=== PATIENT | male | born 1955 | race Caucasian/White ===

== ENCOUNTER → 2016-11-17 | Outpatient (CLI) | payer BC ==
[2016-11-17 14:07] LABS: BASO # 0.1 K/mm3 (0.0-0.2); EOS # 0.2 K/mm3 (0.0-0.50); EOS % 1.9 % (0.0-3.0); LARGE UNSTAINED CELL # 0.2 K/mm3 (0.0-0.4); LYMPH # 2.6 K/mm3 (1.5-4.5); MEAN CORPUSCULAR HEMOGLOBIN 29.5 pg (27.0-33.0); MEAN CORPUSCULAR HGB CONC 32.9 g/dl (32.0-36.5); MEAN CORPUSCULAR VOLUME 89.6 fl (80.0-96.0); MONO # 0.6 K/mm3 (0.0-0.8); MONO % 6.1 % (0.0-5.0); NEUTROPHILS # 6.8 K/mm3 (1.8-7.7); PLATELET COUNT, AUTOMATED 222 k/mm3 (150-450); RED CELL DISTRIBUTION WIDTH 13.9 % (11.5-14.5); WHITE BLOOD COUNT 10.3 K/mm3 (4.0-10.0)
[2016-11-17 14:18] LABS: ALBUMIN 3.9 GM/DL (3.2-5.2); ALBUMIN/GLOBULIN RATIO 0.93 (1.00-1.93); BILIRUBIN,TOTAL 0.6 MG/DL (0.2-1.0); CALCIUM LEVEL 8.9 MG/DL (8.8-10.2); CREATININE FOR GFR 1.93 MG/DL (0.70-1.30); GLOMERULAR FILTRATION RATE 37.7 (>49); POTASSIUM SERUM 5.1 MEQ/L (3.5-5.1); TOTAL PROTEIN 8.1 GM/DL (6.4-8.2)
[2016-11-17 14:36] LABS: MAGNESIUM LEVEL 0.9 MG/DL (1.8-2.4)
== END ==
LOC: M SMT 09:03
PROVIDERS: ATTEND Physician Assistant
DX: I48.2 Chronic atrial fibrillation (principal); E78.2 Mixed hyperlipidemia; I10 Essential (primary) hypertension

== ENCOUNTER → 2016-12-09 | Outpatient (CLI) | payer BC ==
[2016-12-09 13:08] LABS: ALBUMIN 3.7 GM/DL (3.2-5.2); CALCIUM LEVEL 8.6 MG/DL (8.8-10.2); CREATININE FOR GFR 1.76 MG/DL (0.70-1.30); MAGNESIUM LEVEL 1.2 MG/DL (1.8-2.4); PHOSPHORUS LEVEL 3.9 MG/DL (2.5-4.9)
[2016-12-09 13:10] LABS: POTASSIUM SERUM 5.2 MEQ/L (3.5-5.1)
== END ==
LOC: M SMT 09:11
PROVIDERS: ATTEND Internal Medicine Cardiovascular Disease
DX: E83.42 Hypomagnesemia (principal); I10 Essential (primary) hypertension

== ENCOUNTER → 2017-01-21 | Outpatient (REF) | payer BC ==
[2017-01-21 20:20] LABS: PERCENT SATURATION 28.4 % (19.7-37.4)
== END ==
LOC: M LAB REF 18:47
PROVIDERS: ATTEND Internal Medicine Nephrology
DX: D50.9 Iron deficiency anemia, unspecified (principal)

== ENCOUNTER → 2017-03-11 | Outpatient (CLI) | payer BC ==
--- NOTE | 2017-03-12 03:02 | REP ---
Clinical: Chronic medical renal disease. Technique: Real time stratton scale and color evaluation using curved array transducer. Findings: The bilateral kidneys are normal in contour, size, and reniform shape without hydronephrosis, nephrolithiasis, or obvious renal mass lesion. Right kidney measures 11.9 x 5.3 x 4.6 cm with normal parenchymal echogenicity and 3.4 cm simple mid pole cyst. Left kidney measures 10.9 x 4.6 x 5.7 cm with subtle increased parenchymal echogenicity. Mild bilateral renal vascular calcifications are suggested. The bladder is grossly unremarkable and bilateral ureteral jets are identified. Prevoid bladder measures 73 ml. Postvoid bladder measures 12 ml. Prostate gland is enlarged measuring 4.9 x 4.9 x 5.1 cm (64 ml). Impression: 1. Evidence for chronic medical renal disease as well as 3.4 cm simple appearing right renal cyst. 2. Bladder is incompletely distended and incompletely evaluated although bilateral ureteral jets are identified. 3. Mildly enlarged prostate gland. Signed by Estevan Ritchie MD 03/12/2017 02:55 A
== END ==
LOC: M SMT 10:09
PROVIDERS: ATTEND Internal Medicine Nephrology
DX: N18.3 Chronic kidney disease, stage 3 (moderate) (principal); E11.9 Type 2 diabetes mellitus without complications; I12.9 Hypertensive chronic kidney disease with stage 1 through stage 4 chronic kidney disease, or unspecified chronic kidney disease

== ENCOUNTER → 2017-04-26 | Outpatient (CLI) | payer BC ==
[~2017-04-26] MED LIST: AMLO10TA2 PO; ATOR1TAB21 PO; BENA10TA6 PO; CHLO125TA PO; GLIP1TAB49 PO; MAGN64TASA PO; METF500T4 PO; METO-398 PO; POLY150C4 PO; RANI300C PO; SERT-155 PO; SITA50TAB PO; XARE20TA PO
[2017-04-26 13:14] LABS: BASO # 0.1 K/mm3 (0.0-0.2); BASO % 0.9 % (0.0-1.0); EOS # 0.2 K/mm3 (0.0-0.50); EOS % 2.2 % (0.0-3.0); LARGE UNSTAINED CELL # 0.1 K/mm3 (0.0-0.4); LARGE UNSTAINED CELL % 1.3 % (0.0-4.0); LYMPH % 21.7 % (24.0-44.0); MEAN CORPUSCULAR HEMOGLOBIN 29.8 pg (27.0-33.0); MEAN CORPUSCULAR HGB CONC 33.3 g/dl (32.0-36.5); MEAN CORPUSCULAR VOLUME 89.4 fl (80.0-96.0); MONO # 0.5 K/mm3 (0.0-0.8); MONO % 5.6 % (0.0-5.0); NEUTROPHILS # 5.9 K/mm3 (1.8-7.7); NEUTROPHILS % 68.3 % (36.0-66.0); PLATELET COUNT, AUTOMATED 182 k/mm3 (150-450); RED CELL DISTRIBUTION WIDTH 14.3 % (11.5-14.5); WHITE BLOOD COUNT 8.6 K/mm3 (4.0-10.0)
[2017-04-26 13:43] LABS: ALBUMIN 3.6 GM/DL (3.2-5.2); ALBUMIN/GLOBULIN RATIO 0.97 (1.00-1.93); BILIRUBIN,TOTAL 0.4 MG/DL (0.2-1.0); CALCIUM LEVEL 8.5 MG/DL (8.8-10.2); CREATININE FOR GFR 1.71 MG/DL (0.70-1.30); GLOMERULAR FILTRATION RATE 43.3 (>49); MAGNESIUM LEVEL 1.5 MG/DL (1.8-2.4); POTASSIUM SERUM 4.5 MEQ/L (3.5-5.1); TOTAL PROTEIN 7.3 GM/DL (6.4-8.2)
== END ==
LOC: M SMT 10:15
PROVIDERS: ATTEND Family Medicine
DX: E11.22 Type 2 diabetes mellitus with diabetic chronic kidney disease (principal); I12.9 Hypertensive chronic kidney disease with stage 1 through stage 4 chronic kidney disease, or unspecified chronic kidney disease; D50.9 Iron deficiency anemia, unspecified; N18.3 Chronic kidney disease, stage 3 (moderate); E55.9 Vitamin D deficiency, unspecified

== ENCOUNTER → 2017-06-03 | Outpatient (REF) | payer BC ==
[2017-06-03 19:09] LABS: HYALINE CAST, URINE NONE SEEN /lpf (0-1); RBC, URINE 0-1 /hpf (0-3); SQUAMOUS EPITHELIAL CELL URINE SMALL AMOUNT /hpf (SMALL AMT); TRANSITIONAL EPI CELLS, URINE SMALL AMOUNT /hpf
[2017-06-03 19:10] LABS: BACTERIA, URINE SMALL AMOUNT; MICROSCOPIC EXAM PERFORMED
== END ==
LOC: M LAB REF 17:01
PROVIDERS: ATTEND Internal Medicine Nephrology
DX: N18.3 Chronic kidney disease, stage 3 (moderate) (principal)

== ENCOUNTER → 2017-06-15 | Outpatient (CLI) | payer BC ==
[2017-06-15 11:10] LABS: MEAN CORPUSCULAR HEMOGLOBIN 30.3 pg (27.0-33.0); MEAN CORPUSCULAR HGB CONC 34.3 g/dl (32.0-36.5); MEAN CORPUSCULAR VOLUME 88.5 fl (80.0-96.0); WHITE BLOOD COUNT 7.6 K/mm3 (4.0-10.0)
[2017-06-15 11:16] LABS: CREATININE FOR GFR 1.77 MG/DL (0.70-1.30); GLOMERULAR FILTRATION RATE 41.6 (>49); POTASSIUM SERUM 4.5 MEQ/L (3.5-5.1)
[2017-06-15 11:17] LABS: ALBUMIN 3.6 GM/DL (3.2-5.2); ALBUMIN/GLOBULIN RATIO 0.88 (1.00-1.93); BILIRUBIN,TOTAL 0.4 MG/DL (0.2-1.0); CALCIUM LEVEL 8.3 MG/DL (8.8-10.2); MAGNESIUM LEVEL 1.2 MG/DL (1.8-2.4); TOTAL PROTEIN 7.7 GM/DL (6.4-8.2)
== END ==
LOC: M SMT 09:22
PROVIDERS: ATTEND Physician Assistant
DX: I48.2 Chronic atrial fibrillation (principal); I11.9 Hypertensive heart disease without heart failure; E78.2 Mixed hyperlipidemia

== ENCOUNTER 2017-08-03 09:10 | Day surgery (SDC) | payer BC ==
[~2017-08-03] VITALS: Ht 167.6 cm; Wt 107.0 kg
[~2017-08-03 09:10] MED LIST changes: -XARE20TA PO
[2017-08-03] MEDS ORDERED: LR 1,000 ML IV SCH (09:30)
[2017-08-03] MEDS ORDERED: XARE20TA PO (09:36)
[2017-08-03] MEDS ORDERED: PROPOFOL 200 MG/20 ML VIAL As Ordered ONE (09:41)
[2017-08-03] MEDS ORDERED: LIDOCAINE 2% INJ 100 MG/5 ML SDV (FOR ANES.) As Ordered ONE (09:41)
--- NOTE | 2017-08-03 10:17 | ROOR ---
Patient Name: Matthias Vargas Procedure Date: 08/03/2017 9:55 AM Date of : 1955 Age: 62 Room: [facility] Gender: Male Note Status: Finalized Procedure: Colonoscopy Indications: Screening for colorectal malignant neoplasm, Last colonoscopy 10 or more years ago Providers: Jeff Blue MD Referring MD: Araceli SORENSEN DO Requesting Provider: Medicines: Monitored Anesthesia Care Complications: No immediate complications. Procedure: Pre-Anesthesia Assessment: - Prior to the procedure, a History and Physical was performed, and patient medications and allergies were reviewed. The patient is competent. The risks and benefits of the procedure and the sedation options and risks were discussed with the patient. All questions were answered and informed consent was obtained. Patient identification and proposed procedure were verified by the physician, the nurse and the anesthesiologist in the procedure room. Mental Status Examination: alert and oriented. Airway Examination: normal oropharyngeal airway and neck mobility. CV Examination: irregularly irregular rate and rhythm. Prophylactic Antibiotics: The patient does not require prophylactic antibiotics. Prior Anticoagulants: The patient has taken no previous anticoagulant or antiplatelet agents. ASA Grade Assessment: III - A patient with severe systemic disease. After reviewing the risks and benefits, the patient was deemed in satisfactory condition to undergo the procedure. The anesthesia plan was to use monitored anesthesia care (MAC). Immediately prior to administration of medications, the patient was re-assessed for adequacy to receive sedatives. The heart rate, respiratory rate, oxygen saturations, blood pressure, adequacy of pulmonary ventilation, and response to care were monitored throughout the procedure. The physical status of the patient was re-assessed after the procedure. The was introduced through the anus and advanced to the cecum, identified by appendiceal orifice and ileocecal valve. The colonoscopy was performed without difficulty. The patient tolerated the procedure well. The quality of the bowel preparation was excellent. Findings: The perianal and digital rectal examinations were normal. Multiple small-mouthed diverticula were found in the sigmoid colon. Impression: - Diverticulosis in the sigmoid colon. - No specimens collected. Recommendation: - Discharge patient to home. - Resume previous diet. - Continue present medications. - Repeat colonoscopy in 10 years for screening purposes. Jeff Blue MD 08/03/2017 10:16:54 AM Number of Addenda: 0 Note Initiated On: 08/03/2017 9:55 AM Estimated Blood Loss: Estimated blood loss: none.
[2017-08-03] MEDS ORDERED: ALBUTEROL SULFATE 2.5 MG/0.5 ML INH NEB SOLN INH ONE (10:30)
[2017-08-03 10:55] VITALS: BP 167/97
== END 2017-08-03 11:05 | disposition home or self-care (01) ==
LOC: M OPP 09:10 → EDSTATUS 10:30 → M OPP 11:05
PROVIDERS: ATTEND Surgery
DX: Z12.11 Encounter for screening for malignant neoplasm of colon (principal); K57.30 Diverticulosis of large intestine without perforation or abscess without bleeding; K21.9 Gastro-esophageal reflux disease without esophagitis; I48.91 Unspecified atrial fibrillation; F41.9 Anxiety disorder, unspecified; E78.00 Pure hypercholesterolemia, unspecified; E66.9 Obesity, unspecified; Z79.52 Long term (current) use of systemic steroids; Z88.0 Allergy status to penicillin; Z79.84 Long term (current) use of oral hypoglycemic drugs; Z79.899 Other long term (current) drug therapy

== ENCOUNTER → 2017-08-06 | Outpatient (CLI) | payer BC ==
[~2017-08-06] MED LIST changes: +XARE20TA PO
[2017-08-06 14:24] LABS: BASO # 0.1 10^3/uL (0.0-0.2); BASO % 1.2 % (0.0-1.0); EOS # 0.3 10^3/uL (0.0-0.50); EOS % 3.6 % (0.0-3.0); IMMATURE GRANULOCYTE % 0.6 % (0-0); LYMPH % 23.3 % (24.0-44.0); MEAN CORPUSCULAR HEMOGLOBIN 29.3 pg (27.0-33.0); MEAN CORPUSCULAR HGB CONC 33.1 g/dl (32.0-36.5); MEAN CORPUSCULAR VOLUME 88.5 fl (80.0-96.0); MONO # 0.7 10^3/uL (0.0-0.8); MONO % 7.5 % (0.0-5.0); NEUTROPHILS # 5.5 10^3/uL (1.8-7.7); NEUTROPHILS % 63.8 % (36.0-66.0); PLATELET COUNT, AUTOMATED 197 10^3/uL (150-450); RED CELL DISTRIBUTION WIDTH 13.6 % (11.5-14.5); WHITE BLOOD COUNT 8.7 10^3/uL (4.0-10.0)
[2017-08-06 14:29] LABS: ALBUMIN 3.9 GM/DL (3.2-5.2); ALBUMIN/GLOBULIN RATIO 0.95 (1.00-1.93); BILIRUBIN,TOTAL 0.5 MG/DL (0.2-1.0); CALCIUM LEVEL 9.3 MG/DL (8.8-10.2); CREATININE FOR GFR 1.75 MG/DL (0.70-1.30); GLOMERULAR FILTRATION RATE 42.1 (>49); MAGNESIUM LEVEL 1.5 MG/DL (1.8-2.4); POTASSIUM SERUM 4.9 MEQ/L (3.5-5.1)
== END ==
LOC: M SMT 09:08
PROVIDERS: ATTEND Family Medicine
DX: E11.22 Type 2 diabetes mellitus with diabetic chronic kidney disease (principal); D50.9 Iron deficiency anemia, unspecified; E83.42 Hypomagnesemia

== ENCOUNTER → 2017-11-01 | Outpatient (CLI) | payer BC ==
[2017-11-01 13:37] LABS: ALBUMIN/GLOBULIN RATIO 0.91 (1.00-1.93); ALKALINE PHOSPHATASE 133 U/L (45-117); ALT/SGPT 36 U/L (12-78); ANION GAP 6 MEQ/L (8-16); AST/SGOT 26 U/L (7-37); BILIRUBIN,TOTAL 0.5 MG/DL (0.2-1.0); BLOOD UREA NITROGEN 36 MG/DL (7-18); CARBON DIOXIDE LEVEL 25 MEQ/L (21-32); CHLORIDE LEVEL 101 MEQ/L (98-107); CREATININE FOR GFR 1.97 MG/DL (0.70-1.30); GLOMERULAR FILTRATION RATE 36.7 (>49); GLUCOSE, FASTING 328 MG/DL (70-100); MAGNESIUM LEVEL 1.4 MG/DL (1.8-2.4); SODIUM LEVEL 132 MEQ/L (136-145); TOTAL PROTEIN 8.4 GM/DL (6.4-8.2)
[2017-11-01 13:38] LABS: BASO # 0.1 10^3/uL (0.0-0.2); BASO % 1.4 % (0.0-1.0); EOS # 0.2 10^3/uL (0.0-0.50); EOS % 1.7 % (0.0-3.0); HEMATOCRIT 40.3 % (42.0-52.0); HEMOGLOBIN 13.6 g/dl (14.0-18.0); IMMATURE GRANULOCYTE # 0.1 10^3/uL (0-0); IMMATURE GRANULOCYTE % 0.7 % (0-0); LYMPH # 2.2 10^3/uL (1.5-4.5); LYMPH % 22.1 % (24.0-44.0); MEAN CORPUSCULAR HEMOGLOBIN 28.8 pg (27.0-33.0); MEAN CORPUSCULAR HGB CONC 33.7 g/dl (32.0-36.5); MEAN CORPUSCULAR VOLUME 85.4 fl (80.0-96.0); MONO # 0.7 10^3/uL (0.0-0.8); MONO % 6.7 % (0.0-5.0); NEUTROPHILS # 6.7 10^3/uL (1.8-7.7); NEUTROPHILS % 67.4 % (36.0-66.0); PLATELET COUNT, AUTOMATED 193 10^3/uL (150-450); POTASSIUM SERUM 5.9 MEQ/L (3.5-5.1); RED BLOOD COUNT 4.72 10^6/uL (4.30-6.10); RED CELL DISTRIBUTION WIDTH 13.6 % (11.5-14.5); WHITE BLOOD COUNT 9.9 10^3/uL (4.0-10.0)
[2017-11-01 13:43] LABS: TOTAL 25(OH) VITAMIN D 26.8 NG/ML (30.0-100.0)
[2017-11-01 14:26] LABS: ESTIMATED AVERAGE GLUCOSE 260 MG/DL (60-110); HEMOGLOBIN A1c 10.7 %
== END ==
LOC: M SMT 09:48
DX: E11.22 Type 2 diabetes mellitus with diabetic chronic kidney disease (principal); E55.9 Vitamin D deficiency, unspecified
CPT/HCPCS: 83735

== ENCOUNTER → 2017-11-02 | Outpatient (CLI) | payer BC | LOC: M WUC 18:25 | DX: M79.605 Pain in left leg (principal); W10.9XXA Fall (on) (from) unspecified stairs and steps, initial encounter; Y92.89 Other specified places as the place of occurrence of the external cause | CPT/HCPCS: 73552 ==

== ENCOUNTER → 2017-11-16 | Outpatient (REF) | payer BC ==
[2017-11-16 18:45] LABS: FERRITIN 530 NG/ML (26-388); IRON (FE) 72 UG/DL (65-175); PERCENT SATURATION 36.7 % (19.7-50.0); TOTAL IRON BINDING CAPACITY 196 UG/DL (250-450)
[2017-11-16 19:40] LABS: FOLATE 6.5 NG/ML; VITAMIN B12 LEVEL 932 PG/ML
== END ==
LOC: M LAB REF 18:15
DX: D50.9 Iron deficiency anemia, unspecified (principal)
CPT/HCPCS: 82746

== ENCOUNTER → 2017-12-06 | Outpatient (CLI) | payer BC ==
[2017-12-06 13:22] LABS: BASO # 0.1 10^3/uL (0.0-0.2); BASO % 1.2 % (0.0-1.0); EOS # 0.2 10^3/uL (0.0-0.50); EOS % 2.1 % (0.0-3.0); HEMATOCRIT 36.8 % (42.0-52.0); IMMATURE GRANULOCYTE % 0.5 % (0-3.0); LYMPH # 1.9 10^3/uL (1.5-4.5); LYMPH % 24.8 % (24.0-44.0); MEAN CORPUSCULAR HEMOGLOBIN 28.4 pg (27.0-33.0); MEAN CORPUSCULAR HGB CONC 32.6 g/dl (32.0-36.5); MEAN CORPUSCULAR VOLUME 87.2 fl (80.0-96.0); MONO # 0.6 10^3/uL (0.0-0.8); MONO % 8.1 % (0.0-5.0); NEUTROPHILS # 4.9 10^3/uL (1.8-7.7); NEUTROPHILS % 63.3 % (36.0-66.0); PLATELET COUNT, AUTOMATED 163 10^3/uL (150-450); RED BLOOD COUNT 4.22 10^6/uL (4.30-6.10); RED CELL DISTRIBUTION WIDTH 14.2 % (11.5-14.5); WHITE BLOOD COUNT 7.7 10^3/uL (4.0-10.0)
[2017-12-06 13:25] LABS: ANION GAP 10 MEQ/L (8-16); BLOOD UREA NITROGEN 28 MG/DL (7-18); CALCIUM LEVEL 8.8 MG/DL (8.8-10.2); CARBON DIOXIDE LEVEL 23 MEQ/L (21-32); CHLORIDE LEVEL 105 MEQ/L (98-107); CREATININE FOR GFR 1.66 MG/DL (0.70-1.30); GLOMERULAR FILTRATION RATE 44.8 (>49); GLUCOSE, FASTING 175 MG/DL (70-100); SODIUM LEVEL 138 MEQ/L (136-145)
[2017-12-06 13:40] LABS: ESTIMATED AVERAGE GLUCOSE 237 MG/DL (60-110); HEMOGLOBIN A1c 9.9 %
== END ==
LOC: M SMT 09:11
DX: E11.22 Type 2 diabetes mellitus with diabetic chronic kidney disease (principal); N18.9 Chronic kidney disease, unspecified; S79.922D Unspecified injury of left thigh, subsequent encounter

== ENCOUNTER → 2018-03-07 | Outpatient (CLI) | payer BC ==
[2018-03-07 10:54] LABS: ALBUMIN 3.8 GM/DL (3.2-5.2); ALKALINE PHOSPHATASE 101 U/L (45-117); ALT/SGPT 32 U/L (12-78); ANION GAP 9 MEQ/L (8-16); AST/SGOT 25 U/L (7-37); BILIRUBIN,TOTAL 0.5 MG/DL (0.2-1.0); BLOOD UREA NITROGEN 26 MG/DL (7-18); CALCIUM LEVEL 8.7 MG/DL (8.8-10.2); CARBON DIOXIDE LEVEL 24 MEQ/L (21-32); CHLORIDE LEVEL 106 MEQ/L (98-107); CREATININE FOR GFR 1.57 MG/DL (0.70-1.30); GLOMERULAR FILTRATION RATE 47.6 (>49); GLUCOSE, FASTING 166 MG/DL (70-100); POTASSIUM SERUM 4.6 MEQ/L (3.5-5.1); SODIUM LEVEL 139 MEQ/L (136-145)
[2018-03-07 11:14] LABS: ESTIMATED AVERAGE GLUCOSE 189 MG/DL (60-110); HEMOGLOBIN A1c 8.2 %
== END ==
LOC: M LAB 09:50
DX: E11.22 Type 2 diabetes mellitus with diabetic chronic kidney disease (principal); N18.9 Chronic kidney disease, unspecified
CPT/HCPCS: 80053

== ENCOUNTER → 2018-07-27 | Outpatient (REF) | payer BC ==
[2018-07-27 13:59] LABS: MAGNESIUM LEVEL 1.2 MG/DL (1.8-2.4)
[2018-07-27 14:02] LABS: MAGNESIUM URINE RANDOM 2.2 MG/DL
== END ==
LOC: M LAB REF 13:19
DX: E83.42 Hypomagnesemia (principal)
CPT/HCPCS: 83735

== ENCOUNTER → 2018-09-07 | Outpatient (CLI) | payer BC ==
[2018-09-07 12:25] LABS: BASO # 0.1 10^3/uL (0.0-0.2); BASO % 1.1 % (0.0-1.0); EOS # 0.1 10^3/uL (0.0-0.50); EOS % 1.3 % (0.0-3.0); HEMATOCRIT 40.3 % (42.0-52.0); HEMOGLOBIN 13.5 g/dl (13.5-17.5); IMMATURE GRANULOCYTE % 0.9 % (0-3.0); LYMPH % 24.4 % (24.0-44.0); MEAN CORPUSCULAR HEMOGLOBIN 29.3 pg (27.0-33.0); MEAN CORPUSCULAR HGB CONC 33.5 g/dl (32.0-36.5); MEAN CORPUSCULAR VOLUME 87.6 fl (80.0-96.0); MONO # 0.5 10^3/uL (0.0-0.8); MONO % 6.6 % (0.0-5.0); NEUTROPHILS # 5.4 10^3/uL (1.8-7.7); NEUTROPHILS % 65.7 % (36.0-66.0); PLATELET COUNT, AUTOMATED 166 10^3/uL (150-450); WHITE BLOOD COUNT 8.2 10^3/uL (4.0-10.0)
[2018-09-07 12:36] LABS: ALBUMIN 3.7 GM/DL (3.2-5.2); ALBUMIN/GLOBULIN RATIO 0.88 (1.00-1.93); ALKALINE PHOSPHATASE 98 U/L (45-117); ALT/SGPT 55 U/L (12-78); ANION GAP 9 MEQ/L (8-16); AST/SGOT 45 U/L (7-37); BILIRUBIN,TOTAL 0.6 MG/DL (0.2-1.0); BLOOD UREA NITROGEN 32 MG/DL (7-18); CALCIUM LEVEL 8.9 MG/DL (8.8-10.2); CARBON DIOXIDE LEVEL 24 MEQ/L (21-32); CHLORIDE LEVEL 103 MEQ/L (98-107); CHOLESTEROL LEVEL 143 MG/DL (<200); CHOLESTEROL RISK RATIO 4.766 (<5); CREATININE FOR GFR 1.79 MG/DL (0.70-1.30); GLOMERULAR FILTRATION RATE 40.9 (>49); GLUCOSE, FASTING 208 MG/DL (70-100); HDL CHOLESTEROL 30 MG/DL (>40); LDL CHOLESTEROL 61 MG/DL (<100); NON-HDL-C 113 MG/DL; POTASSIUM SERUM 4.8 MEQ/L (3.5-5.1); SODIUM LEVEL 136 MEQ/L (136-145); TOTAL PROTEIN 7.9 GM/DL (6.4-8.2); TRIGLYCERIDES LEVEL 258 MG/DL (<150)
[2018-09-07 12:42] LABS: ESTIMATED AVERAGE GLUCOSE 223 MG/DL (60-110); HEMOGLOBIN A1c 9.4 %
[2018-09-08 11:29] LABS: MALB URINE SIEMENS 46.2 MG/L; MAU/CREAT RATIO 22.2 MCG/MG (0.0-30.0)
== END ==
LOC: M SMT 09:43
DX: E11.22 Type 2 diabetes mellitus with diabetic chronic kidney disease (principal); E78.2 Mixed hyperlipidemia
CPT/HCPCS: 80053

== ENCOUNTER → 2018-12-29 | Outpatient (CLI) | payer BC ==
[~2018-12-29] MED LIST changes: -AMLO10TA2 PO; +AMLO10TA5 PO; -GLIP1TAB49 PO; +GLIP5TAB20 PO; -METO-398 PO; +METO200T28 PO
[2018-12-29 15:00] LABS: ALBUMIN 3.7 GM/DL (3.2-5.2); BILIRUBIN,TOTAL 0.5 MG/DL (0.2-1.0); CALCIUM LEVEL 8.5 MG/DL (8.8-10.2); CHOLESTEROL RISK RATIO 3.939 (<5); CREATININE FOR GFR 1.59 MG/DL (0.70-1.30); GLOMERULAR FILTRATION RATE 46.9 (>49); POTASSIUM SERUM 4.7 MEQ/L (3.5-5.1); TOTAL PROTEIN 7.6 GM/DL (6.4-8.2)
[2018-12-29 15:15] LABS: HEMOGLOBIN A1c 8.9 %
== END ==
LOC: M SMT 08:08
PROVIDERS: ATTEND Family Medicine
DX: E11.22 Type 2 diabetes mellitus with diabetic chronic kidney disease (principal); N18.9 Chronic kidney disease, unspecified

== ENCOUNTER → 2019-12-21 | Outpatient (REF) | payer MEDICARE ==
[~2019-12-21] MED LIST changes: -BENA10TA6 PO; +BENA1TAB24 PO; +METF-791 PO; -METF500T4 PO; -SERT-155 PO; +SERT50TA29 PO
[2019-12-22 12:07] LABS: MALB URINE SIEMENS 24.4 MG/L; MAU/CREAT RATIO 18.4 MCG/MG (0.0-30.0)
== END ==
LOC: M LAB REF 10:20
PROVIDERS: ATTEND Nurse Practitioner Family
DX: E11.22 Type 2 diabetes mellitus with diabetic chronic kidney disease (principal)

== ENCOUNTER → 2020-08-28 | Outpatient (CLI) | payer MEDICARE ==
[~2020-08-28] MED LIST changes: -AMLO10TA5 PO; +AMLO1TAB25 PO; -METF-791 PO; +METF-838 PO
[2020-08-28 13:13] LABS: BASO # 0.1 10^3/uL (0.0-0.2); BASO % 1.3 % (0.0-1.0); EOS # 0.1 10^3/uL (0.0-0.5); EOS % 1.2 % (0.0-3.0); HEMATOCRIT 43.7 % (42.0-52.0); HEMOGLOBIN 14.2 g/dl (13.5-17.5); LYMPH # 1.7 10^3/uL (1.5-5.0); LYMPH % 20.7 % (24.0-44.0); MEAN CORPUSCULAR HEMOGLOBIN 27.6 pg (27.0-33.0); MEAN CORPUSCULAR HGB CONC 32.5 g/dl (32.0-36.5); MEAN CORPUSCULAR VOLUME 84.9 fl (80.0-96.0); MONO # 0.6 10^3/uL (0.0-0.8); MONO % 6.7 % (0.0-5.0); NEUTROPHILS # 5.8 10^3/uL (1.5-8.5); NEUTROPHILS % 69.4 % (36.0-66.0); PLATELET COUNT, AUTOMATED 155 10^3/uL (150-450); RED BLOOD COUNT 5.15 10^6/uL (4.30-6.10); WHITE BLOOD COUNT 8.4 10^3/uL (4.0-10.0)
[2020-08-28 13:43] LABS: HEMOGLOBIN A1c 10.2 %
[2020-08-28 13:49] LABS: ALBUMIN 3.6 GM/DL (3.2-5.2); BILIRUBIN,TOTAL 0.8 MG/DL (0.2-1.0); CALCIUM LEVEL 9.1 MG/DL (8.8-10.2); CREATININE FOR GFR 1.6 MG/DL (0.70-1.30); GLOMERULAR FILTRATION RATE 46.3 (>49); POTASSIUM SERUM 4.6 MEQ/L (3.5-5.1); TOTAL PROTEIN 7.8 GM/DL (6.4-8.2)
== END ==
LOC: M WUC 10:53
PROVIDERS: ATTEND Physician Assistant
DX: E11.22 Type 2 diabetes mellitus with diabetic chronic kidney disease (principal)

== ENCOUNTER → 2020-08-29 | Outpatient (REF) | payer MEDICARE ==
[2020-08-29 11:02] LABS: MAU/CREAT RATIO 53.7 MCG/MG (0.0-30.0)
== END ==
LOC: M LAB REF 09:05
PROVIDERS: ATTEND Physician Assistant
DX: E11.22 Type 2 diabetes mellitus with diabetic chronic kidney disease (principal)

== ENCOUNTER → 2020-11-06 | Outpatient (CLI) | payer MEDICARE ==
--- NOTE | 2020-11-06 12:30 | REP ---
INDICATION: RIGHT LEG SWELLING AND PAIN, DVT? COMPARISON: None. TECHNIQUE: Farley scale and color Doppler evaluation right lower extremity using linear high frequency transducer. FINDINGS: Ultrasound examination of the right lower extremity deep venous structures from the common femoral vein to the popliteal vein demonstrates normal compressibility flow and wave patterns in response to respiration and augmentation. There is no evidence for deep venous thrombosis. Complex Seaman's cyst in the popliteal fossa measuring 4.9 x 2.9 x 4.8 cm. IMPRESSION: No evidence for deep venous thrombosis. Complex Seaman's cyst in the popliteal fossa. <Electronically signed by Estevan Ritchie > 11/06/20 [id number]
== END ==
LOC: M RAD 11:40
PROVIDERS: ATTEND Physician Assistant
DX: M79.661 Pain in right lower leg (principal); M71.21 Synovial cyst of popliteal space [Baker], right knee

== ENCOUNTER → 2021-05-02 | Outpatient (CLI) | payer MEDICARE ==
[2021-05-04 07:07] LABS: PSA TOTAL 3.9 ng/mL (0.0-4.0)
== END ==
LOC: M WUC 09:10
PROVIDERS: ATTEND Physician Assistant
DX: Z12.5 Encounter for screening for malignant neoplasm of prostate (principal); E78.2 Mixed hyperlipidemia

== ENCOUNTER → 2021-05-02 | Outpatient (CLI) | payer MEDICARE ==
[2021-05-02 12:25] LABS: ALBUMIN 3.5 GM/DL (3.2-5.2); BILIRUBIN,DIRECT 0.1 MG/DL (0.0-0.2); BILIRUBIN,TOTAL 0.5 MG/DL (0.2-1.0); CHOLESTEROL RISK RATIO 4.25 (<5); TOTAL PROTEIN 7.7 GM/DL (6.4-8.2)
== END ==
LOC: M WUC 09:12
PROVIDERS: ATTEND Physician Assistant
DX: E78.2 Mixed hyperlipidemia (principal)

== ENCOUNTER → 2021-07-07 | Outpatient (REF) | payer MEDICARE | LOC: M LAB REF 18:45 | PROVIDERS: ATTEND Internal Medicine Nephrology | DX: E83.42 Hypomagnesemia (principal) ==

== ENCOUNTER → 2021-07-08 | Outpatient (REF) | payer MEDICARE ==
[2021-07-09 11:04] LABS: MALB URINE SIEMENS 15.3 MG/L; MAU/CREAT RATIO 8.1 MCG/MG (0.0-30.0)
== END ==
LOC: M LAB REF 09:14
PROVIDERS: ATTEND Nurse Practitioner Family
DX: E11.22 Type 2 diabetes mellitus with diabetic chronic kidney disease (principal)

== ENCOUNTER 2021-08-12 09:09 | Emergency (ER) | payer MEDICARE ==
[~2021-08-12] VITALS: Ht 162.6 cm; Wt 107.7 kg
--- OUTSIDE RECORDS SUMMARY | 2021-08-12 09:20 | CCD | Continuity of Care Document ---
Author Author Matthias MARTIN DESOLDERER Organization Unknown Address [address] [place] [address] Phone [phone] Care Team Providers Care Injection Molding Engineer Name Role Phone Gianfranco Beck RPA AUTM [phone] Araceli Sharma DO AUTM Problems Active Problems Provider Date Chronic kidney disease stage 3 Onset: Disorder of magnesium metabolism Onset: 04/20/2017 Diverticulosis of colon without diverticulitis Onset: 08/03/2017 Iron deficiency anemia Onset: 04/20/2017 Localized, primary osteoarthritis Onset: 03/08/2018 Mixed hyperlipidemia Onset: 06/08/2018 Persistent atrial fibrillation Onset: Type 2 diabetes mellitus Onset: 04/20/20 17 Vitamin D deficiency Onset: 04/20/2017 Essential hypertension Della Harrison MD Onset: 11/08/2018 Social History Type Date Description Comments Sex Unknown Tobacco Use Start: Unknown Never Smoked Cigarettes Smoking Status Reviewed: 07/02/21 Never Smoked Cigarettes ETOH Use Never used alcohol Allergies, Adverse Reactions, Alerts Active Allergies Criticality Reaction | Severity Comments Date Penicillin Unable to assess criticality 11/08/2018 Medications Active Medications SIG Qnty Indications Ordering Provide r Date Tresiba Flextouch 20 0Unit/ML Solution Pen-Inject Inject 80 Units Under The Skin Every Morning 18units Sarita Martin NP 12/24/2020 BD Pen Needle/Stephani/Ultra -Fine/32G X 4mm 32G X 4 mm Misc use as directed 5 x daily with insulin e11.65 500units E1 1.65 Della Harrison MD 05/07/2020 Novolog Flexpen 100U nit/ML Solution Pen-Inject inject subcutaneously daily per sliding scale 30ml Sarita Martin NP 10/20/2019 Pen [place] 3/16" 31G X 5 mm Misc use as directed 3 x every day 300units E11.22 Sarita Martin NP Onetouch Verio Flex Bloodglucose Monitor ing System w/Device Kit use as directed to test blood sugars 1units E11.2 2 Della Harrison MD 11/08/2018 Onetouch Verio Strips use to test blood sugar 3 times a day 300units E11.22 Sarita Martin, SÁNCHEZ 11/08 Onetouch Delica Lancets Extra Fine 33G Misc use as directed tid. e11.65 300units E11.22 Della hansen MD 11/08/2018 Prilosec OTC 20mg Tablets DR 1 by mouth every day prn Unknown Oyster Shell Calcium 500/D 500-200 Tablets 1 by mouth every day Unknown 000 Mag-Delay 1 po bid Unknown Glipizide ER 5mg Tablets ER 24HR 1 po bid Unknown Xarelto 20mg Tablets Take One Tablet By Mouth Every Day 90tabs Araceli Sharma, DO Metoprolol Succinate ER 200mg Tablets ER 24HR Take One-Half Tablet By Mouth Every Day U nknown Atorvastatin Calcium 20mg Tablets Take One Tablet By Mouth Every Night Unknown Sertraline HCL 50mg Tablets Take One Tablet By Mouth Every Day Unknown Hydrocodone-Acetaminophen 5-325mg Tablets 1 by mouth every 6 hours as needed for pain istop 93209885 M17.0 Unknown Amlodipine Besylate 10mg Tablets 1/2 tab daily Unknown Immunizations Description No Information Available Vital Signs Date Vital Result Comment 07/02/2021 11:26am BP Systolic 126 mmHg BP Diastolic 80 mmHg Heart Rate 58 /min Height 66.5 inches 5'6.50" Weight 249.25 lb BMI (Body Mass Index) 39.6 kg/m2 O2 % BldC Oximetry 97 % 04/03/2021 2:55pm BP Systolic 132 mmHg BP Diastolic 76 mmHg Heart Rate 87 /min Body Temperature 97.5 F Height 66.5 inches 5'6.50" Weight 247.38 lb BMI (Body Mass Index) 39.3 kg/m2 Results Test Acquired Date Facility Test Result H/L Range Note Laboratory test finding 07/02/2021 In House Hemoglobin A1c 9.3 Glucose 209 Laboratory test finding 04/03/2021 In House Glucose 305 Hemoglobin A1c 9.8% Procedures Date Code Description Status 07/02/2021 86206 Office/Outpatient Established Mo d MDM 30-39 Min Completed 07/02/2021 169755209 Diabetic Foot Exam Completed 04/03/2021 20510 Office/Outpatient Established Mo d MDM 30-39 Min Completed 01/31/2021 77047 Office/Outpatient Established Mo d MDM 30-39 Min Completed Medical Devices Description No Information Available Encounters Type Date Location Provider Dx Diagnosis Office Visit 07/02/2021 11:30a DR. Della Martin, N P E11.22 Type 2 diabetes mellitus w diabetic chronic kidney disease Z79.4 rat exterminator (current) use of i nsulin N18.31 Chronic kidney disease, stag e 3a Z01.89 Encounter for other specifie d special examinations Office Visit 04/03/2021 2:45p DR. Della Martin, N P E11.22 Type 2 diabetes mellitus w diabetic chronic kidney disease Z79.4 half-way (current) use of i nsulin N18.31 Chronic kidney disease, stag e 3a Office Visit 01/31/2021 3:15p DR. Della Martin, N P E11.22 Type 2 diabetes mellitus w diabetic chronic kidney disease Z79.4 half-way (current) use of i nsulin N18.31 Chronic kidney disease, stag e 3a Z79.84 half-way (current) use of o ral hypoglycemic drugs Z01.89 Encounter for other specifie d special examinations Assessments Date Code Description Provider 07/02/2021 E11.22 Type 2 diabetes mellitus with di abetic chronic kidney disease Sarita Martin NP 07/02/2021 Z79.4 half-way (current) use of insul in Sarita Martin NP 07/02/2021 N18.31 Chronic kidney disease, stage 3a Sarita Martin NP 07/02/2021 Z01.89 Encounter for other specified sp ecial examinations Sarita Martin NP 04/03/2021 E11.22 Type 2 diabetes mellitus with di abetic chronic kidney disease Sarita Martin NP 04/03/2021 Z79.4 rat exterminator (current) use of insul in Sarita Martin NP 04/03/2021 N18.31 Chronic kidney disease, stage 3a Sarita Martin NP 01/31/2021 E11.22 Type 2 diabetes mellitus with di abetic chronic kidney disease Sarita Martin, SÁNCHEZ 01/31/2021 Z79.4 half-way (current) use of insul in Sarita Martin NP 01/31/2021 N18.31 Chronic kidney disease, stage 3a Sarita Martin, SÁNCHEZ 01/31/2021 Z79.84 half-way (current) use of oral hypoglycemic drugs Sarita Martin NP 01/31/2021 Z01.89 Encounter for other specified sp ecial examinations Sarita Martin NP Plan of Treatment Future Appointment(s):* 10/02/2021 9:45 am - Sarita Martin NP at DR. Della Harrison 07/02/2021 - Sarita Martin NP* E11.22 Type 2 diabetes mellitus with diabetic chronic kidney disease* New Labs:* Urine Micro/Creat Ratio Random, Ordered: 07/02/21 * Comments:* 07/02/21- in office A1c= 9.3 % (9.8 %, 9.9%, 9.8%, 9%, 8.3%, 10.1%, 10%, 7.8%, 8.9%, 12.4%) BS= 209- had egg, 1/2 c milk- took Tresiba 80 units. Did not take NovologAdmits that he does not take Novolog in morning with Tresiba Meter Downloaded and reviewed : fasting- 15-196 Reviewed meals- has stopped soda. Drinking water or gatorade ZeroOccasionally will miss Novolog premeals, but will take after meals. Current medication: Glipizide 5mg po BID, Novolog - 10-12-18 units, Tresiba u-200 80 units qam Patient has marked renal dysfunction which limits the choice of other medications. He cannot take an SGLT-2 inhibitor. He cannot take Metformin or Pioglitazone.Stopped Victoza due to nausea and diarrhea Recommend checking BS fasting and 2 hr post dinner. Will further adjust based on readings. RTO 3 months. * Follow up:* 3 months JL/CBF * Z79.4 rat exterminator (current) use of insulin* Comments:* No adjustment in dose Pt also instructed to rotate the sites of administration. PT states since last visit has been rotating sites. * N18.31 Chronic kidney disease, stage 3a* Comments:* Low GFR limits potential for other oral medications. Nephrology notes reviewed 03/28/21. Labs done 03/28/21- per nephrology- Scr= 1.7, GFR= 40 * Z01.89 Encounter for other specified special examinations* Comments:* Foot Exam performed 07/02/21 . Normal light touch and monofilament testing and v ibration. Functional Status Description No Information Available Mental Status Description No Information Available Referrals Description No Information Available
--- OUTSIDE RECORDS SUMMARY | 2021-08-12 09:20 | CCD | Continuity of Care Document ---
Author Author Matthias MARTIN LEVEL VIAL INSPECTOR Organization Unknown Address [address] [place] [address] Phone [phone] Care Team Providers Care Home Appliance Tech Name Role Phone Gianfranco Beck RPA AUTM [phone] Araceli Sharma DO AUTM Problems Active Problems [...] scale 30ml Sarita Martin NP 10/20/2019 Pen [place] 3/16" 31G X 5 mm Misc use [...] 6 hours as needed for pain istop 25690241 M17.0 Unknown Amlodipine Besylate 10mg Tablets 1/2 [...] Date Facility Test Result H/L Range Note Urine Micro/Creat Ratio Random 07/08/2021 [facility] [address] [place] [address] (315)- - Creatinine, Urine 187.0 mg/dL Normal Malb Urine Siemens 15.3 mg/L Normal Amadou/Creat Ratio 8.1 MCG/MG Normal 0.0-30.0 1 Laboratory test finding 07/02/2021 In House Hemoglobin A1c 9.3 Glucose 209 Laboratory test finding 04/03/2021 In House Glucose 305 Hemoglobin A1c 9.8% 1 THE [employer] ATION STATES THAT MICROALBUMINURIA IS PRESENT IF THE MICROALBUMIN/CREATININE RATIO EXCEEDS 30 MCG/MG. THE THRESHOLD FOR CLINICAL ALBUMINURIA IS REACHED AT 300 MCG/MG. THE CLASSIFICATION OF A PATIENT SHOULD BE BASED UPON AT LEAST 2 OF 3 ABNORMAL RESULTS ON SPECIMENS COLLECTED WITHIN A 3 TO 6 MONTH TIME FRAME. Procedures Date Code Description Status 07/02/2021 67117 Office/Outpatient Established Mo d MDM 30-39 Min Completed 07/02/2021 [id number] Diabetic Foot Exam Completed 04/03/2021 08630 Office/Outpatient Established Mo d MDM 30-39 Min Completed 01/31/2021 18483 Office/Outpatient Established Mo d MDM 30-39 Min Completed Medical Devices Description No Information Available Encounters Type Date Location Provider Dx Diagnosis Office Visit 07/02/2021 11:30a DR. Della Martin, N P E11.22 Type 2 diabetes mellitus w diabetic chronic kidney disease Z79.4 detention (current) use of i nsulin N18.31 Chronic kidney disease, stag e 3a Z01.89 Encounter for other specifie d special examinations Office Visit 04/03/2021 2:45p Tatiana Weiss P E11.22 Type 2 diabetes mellitus w diabetic chronic kidney disease Z79.4 detention (current) use of i nsulin N18.31 Chronic kidney disease, stag e 3a Office Visit 01/31/2021 3:15p DR. Della Fish Sarita B. Jose L, N P E11.22 Type 2 diabetes mellitus w diabetic chronic kidney disease Z79.4 buttermaker helper (current) use of i nsulin N18.31 Chronic kidney disease, stag e 3a Z79.84 detention (current) use of o ral hypoglycemic drugs Z01.89 Encounter for other specifie d special examinations Assessments Date Code Description Provider 07/02/2021 E11.22 Type 2 diabetes mellitus with di abetic chronic kidney disease Sarita Martin, SÁNCHEZ 07/02/2021 Z79.4 detention (current) use of insul in Sartia Martin, LEVEL VIAL INSPECTOR 07/02/2021 N18.31 Chronic kidney disease, stage 3a Sarita Martin, LEVEL VIAL INSPECTOR 07/02/2021 Z01.89 Encounter for other specified sp ecial examinations Sarita Martin NP 04/03/2021 E11.22 Type 2 diabetes mellitus with di abetic chronic kidney disease Sarita Martin, LEVEL VIAL INSPECTOR 04/03/2021 Z79.4 buttermaker helper (current) use of insul in Sarita Martin, LEVEL VIAL INSPECTOR 04/03/2021 N18.31 Chronic kidney disease, stage 3a Sarita Martin, LEVEL VIAL INSPECTOR 01/31/2021 E11.22 Type 2 diabetes mellitus with di abetic chronic kidney disease Sarita Martin, LEVEL VIAL INSPECTOR 01/31/2021 Z79.4 detention (current) use of insul in Sarita Martin, LEVEL VIAL INSPECTOR 01/31/2021 N18.31 Chronic kidney disease, stage 3a Sarita Martin, LEVEL VIAL INSPECTOR 01/31/2021 Z79.84 detention (current) use of oral hypoglycemic drugs Sarita Martin, LEVEL VIAL INSPECTOR 01/31/2021 Z01.89 Encounter for other specified sp ecial examinations Sarita Martin NP Plan of Treatment Future Appointment(s):* 10/02/2021 9:45 am - Sarita Martin NP at DR. Della Harrison 07/02/2021 - Sarita Martin NP* E11.22 Type 2 diabetes mellitus with diabetic chronic kidney disease* Comments:* 07/02/21- in office A1c= 9.3 % (9.8 %, 9.9%, 9.8%, 9%, 8.3%, 10.1%, 10%, 7.8%, 8.9%, 12.4%) BS= 209- had egg, 1/2 c milk- took Tresiba 80 units. Did not take NovologAdmits that he does not take Novolog in morning with Tresiba Meter Downloaded and reviewed : fasting- 71-196 Reviewed meals- has stopped soda. Drinking water or gatorade ZeroOccasionally will miss Novolog premeals, but will take after meals. Current medication: Glipizide 5mg po BID, Novolog - 10-12-18 units, Tresiba u-200 80 units qam Patient has marked renal dysfunction which limits the c hoice of other medications. He cannot take an SGLT-2 inhibitor. He cannot take Metformin or Pioglitazone.Stopped Victoza due to nausea and diarrhea Recommend checking BS fasting and 2 hr post dinner. Will further adjust based on readings. RTO 3 months. * Follow up:* 3 months JL/CBF * Z79.4 buttermaker helper (current) use of insulin* Comments:* No adjustment [...]
--- OUTSIDE RECORDS SUMMARY | 2021-08-12 09:20 | CCD | Continuity of Care Document ---
Author Author Matthias PENA MO Organization Unknown Address [address] [address] [place] [address] Phone [phone] Care Team Providers Care Software Release Manager Name Role Phone Family [facility] AUTM Problems Description No Information Available Social History Type Date Description Comments Sex Unknown ETOH Use Denies alcohol use Tobacco Use Start: Unknown The patient has never vaped Tobacco Use Start: Unknown Patient has never smoked Smoking Status Reviewed: 07/15/21 Patient has never smoked Allergies, Adverse Reactions, Alerts Active Allergies Criticality Reaction | Severity Comments Date Penicillins Unable to assess criticality hives 07/15/2021 Medications Active Medications SIG Qnty Indications Ordering Provide r Date Albuterol Sulfate HFA 108(90Base) mcg/Act Aerosol 1-2 puff inhaled 3-4 x per day for sob/wheezing 8.500gm Martínez Diaz JR., M.D. 07/15/2021 Erythromycin 5mg/GM Ointment apply small amount to L eye four times per day x 7 days 2gm Monique mayur Diaz JR., M.D. 07/15/2021 Novolog Unknown Hydrocodone-Acetaminophen Unknown Amlodipine Besylate Unknown Glipizide ER Unknown Benazepril HCL Unknown Sertraline HCL Unknown Atorvastatin Calcium Unknown Metoprolol Succinate ER Unknown 0 Xarelto Unknown Ranitidine HCL Unknown Mag64 Unknown Poly-Iron 150 Unknown Prilosec OTC Unknown Tresiba Flextouch Unknown 0 000 Immunizations Description No Information Available Vital Signs Date Vital Result Comment 07/15/2021 7:33pm BP Systolic 134 mmHg BP Diastolic 92 mmHg Heart Rate 97 /min Respiratory Rate 20 /min O2 % BldC Oximetry 95 % Body Temperature 98.2 F Weight 248.00 lb Pain Level 6 Results Description No Information Available Procedures Description No Information Available Medical Devices Description No Information Available Encounters Description No Information Available Assessments Description No Information Available Plan of Treatment No Information Available Functional Status Description No Information Available Mental Status Description No Information Available Referrals Description No Information Available"
--- OUTSIDE RECORDS SUMMARY | 2021-08-12 09:20 | CCD | Continuity of Care Document ---
Author Author Matthias MARTIN PARIMUTUEL CLERK Organization Unknown Address [address] [place] [address] Phone [phone] Care Team Providers Care Account Executive Healthcare Name Role Phone Gianfranco Beck RPA AUTM [phone] Araceli Sharma DO AUTM Problems Active Problems [...] scale 30ml Sarita Martin NP 10/20/2019 Pen [place] 3/16" 31G X 5 mm Misc use [...] 6 hours as needed for pain istop [id number] M17.0 Unknown Amlodipine Besylate 10mg Tablets 1/2 [...] Range Note Urine Micro/Creat Ratio Random 07/08/2021 [facility] [address] [place] [address] (315)- - Creatinine, Urine 187.0 mg/dL Normal Malb Urine Siemens 15.3 mg/L Normal Amadou/Creat Ratio 8.1 MCG/MG Normal 0.0-30.0 1 Laboratory test finding 07/02/2021 In House Hemoglobin A1c 9.3 Glucose 209 Laboratory test finding 04/03/2021 In House Glucose 305 Hemoglobin A1c 9.8% 1 THE [place] DI[employer]ES [employer]OC[employer] ATION STATES THAT MICROALBUMINURIA IS PRESENT IF THE MICROALBUMIN/CREATININE RATIO EXCEEDS 30 MCG/MG. THE THRESHOLD FOR CLINICAL ALBUMINURIA IS REACHED AT 300 MCG/MG. THE CLASSIFICATION OF A PATIENT SHOULD BE BASED UPON AT LEAST 2 OF 3 ABNORMAL RESULTS ON SPECIMENS COLLECTED WITHIN A 3 TO 6 MONTH TIME FRAME. Procedures Date Code Description Status 07/02/2021 14802 Office/Outpatient Established Mo d MDM 30-39 Min Completed 07/02/2021 [id number] Diabetic Foot Exam Completed 04/03/2021 60343 Office/Outpatient Established Mo d MDM 30-39 Min Completed 01/31/2021 82955 Office/Outpatient Established Mo d MDM 30-39 Min Completed Medical Devices Description No Information Available Encounters Type Date Location Provider Dx Diagnosis Office Visit 07/02/2021 11:30a DR. Della Martin, N P E11.22 Type 2 diabetes mellitus w diabetic chronic kidney disease Z79.4 correction (current) use of i nsulin N18.31 Chronic kidney disease, stag e 3a Z01.89 Encounter for other specifie d special examinations Office Visit 04/03/2021 2:45p Tatiana Weiss P E11.22 Type 2 diabetes mellitus w diabetic chronic kidney disease Z79.4 correction (current) use of i nsulin N18.31 Chronic kidney disease, stag e 3a Office Visit 01/31/2021 3:15p DR. Della Fish Sarita B. Jose L, N P E11.22 Type 2 diabetes mellitus w diabetic chronic kidney disease Z79.4 rodent exterminator (current) use of i nsulin N18.31 Chronic kidney disease, stag e 3a Z79.84 correction (current) use of o ral hypoglycemic drugs Z01.89 Encounter for other specifie d special examinations Assessments Date Code Description Provider 07/02/2021 E11.22 Type 2 diabetes mellitus with di abetic chronic kidney disease Sarita Martin, SÁNCHEZ 07/02/2021 Z79.4 correction (current) use of insul in Sarita Martin, PARIMUTUEL CLERK 07/02/2021 N18.31 Chronic kidney disease, stage 3a Sarita Martin, PARIMUTUEL CLERK 07/02/2021 Z01.89 Encounter for other specified sp ecial examinations Sarita Martin NP 04/03/2021 E11.22 Type 2 diabetes mellitus with di abetic chronic kidney disease Sarita Martin, PARIMUTUEL CLERK 04/03/2021 Z79.4 rodent exterminator (current) use of insul in Sarita Martin, PARIMUTUEL CLERK 04/03/2021 N18.31 Chronic kidney disease, stage 3a Sarita Martin, PARIMUTUEL CLERK 01/31/2021 E11.22 Type 2 diabetes mellitus with di abetic chronic kidney disease Sarita Martin, PARIMUTUEL CLERK 01/31/2021 Z79.4 correction (current) use of insul in Sarita Martin, PARIMUTUEL CLERK 01/31/2021 N18.31 Chronic kidney disease, stage 3a Sarita Martin, PARIMUTUEL CLERK 01/31/2021 Z79.84 correction (current) use of oral hypoglycemic drugs Sarita Martin, PARIMUTUEL CLERK 01/31/2021 Z01.89 Encounter for other specified sp [...] Follow up:* 3 months JL/CBF * Z79.4 rodent exterminator (current) use of insulin* Comments:* No [...]
--- OUTSIDE RECORDS SUMMARY | 2021-08-12 09:20 | CCD | Continuity of Care Document ---
Author Author Matthias MARTIN PIE CRIMPING MACHINE OPERATOR Organization Unknown Address [address] [place] [address] Phone [phone] Care Team Providers Care Bar Pointer Name Role Phone Gianfranco Beck RPA AUTM [phone] Araceli Sharma DO AUTM [phone] Problems Active Problems Provider Date Chronic kidney [...] scale 30ml Sarita Martin NP 10/20/2019 Pen [place] 3/16" 31G X 5 mm Misc use [...] 6 hours as needed for pain istop [id number] M17.0 Unknown Amlodipine Besylate 10mg Tablets 1/2 [...] 9.8% Procedures Date Code Description Status 07/02/2021 42292 Office/Outpatient Established Mo d MDM 30-39 Min Completed 07/02/2021 [id number] Diabetic Foot Exam Completed 04/03/2021 68480 Office/Outpatient Established Mo d MDM 30-39 Min Completed 01/31/2021 06092 Office/Outpatient Established Mo d MDM 30-39 Min [...] mellitus w diabetic chronic kidney disease Z79.4 jail (current) use of i nsulin N18.31 Chronic kidney disease, stag e 3a Office Visit 01/31/2021 3:15p DR. Della Martin, N P E11.22 Type 2 diabetes mellitus w diabetic chronic kidney disease Z79.4 jail (current) use of i nsulin N18.31 Chronic kidney disease, stag e 3a Z79.84 jail (current) use of o ral hypoglycemic drugs Z01.89 Encounter for other specifie d special examinations Assessments Date Code Description Provider 07/02/2021 E11.22 Type 2 diabetes mellitus with di abetic chronic kidney disease Sarita Martin NP 07/02/2021 Z79.4 jail (current) use of insul in Sarita Martin [...] kidney disease Sarita Martin, SÁNCHEZ 01/31/2021 Z79.4 jail (current) use of insul in Sarita Martin NP 01/31/2021 N18.31 Chronic kidney disease, stage 3a Sarita Martin, SÁNCHEZ 01/31/2021 Z79.84 jail (current) use of oral hypoglycemic drugs Sarita [...] Tresiba Meter Downloaded and reviewed : fasting- 49-196 Reviewed meals- has stopped soda. Drinking water [...]
--- OUTSIDE RECORDS SUMMARY | 2021-08-12 09:20 | CCD | Continuity of Care Document ---
Author Author Matthias SHARMA Organization Unknown Address [address] [place] [address] Phone [phone] Care Team Providers Care Scrape Gatherer Name Role Phone Araceli Sharma D.O. AUTM Problems Active Problems Provider Date Type 2 diabetes mellitus Araceli Sharma D.O. Onset: 0 04/20/2017 Chronic kidney disease stage 3 Araceli Sharma D.O. On set: 04/20/2017 Disorder of magnesium metabolism Araceli Sharma D.O. Onset: 04/20/2017 Iron deficiency anemia Araceli Sharma D.O. Onset: 08/2017 Vitamin D deficiency Araceli Sharma D.O. Onset: 04/20 Chronic kidney disease stage 3 due to hypertension Araceli Monterroso D.O. Onset: 04/20/2017 Persistent atrial fibrillation Araceli Sharma D.O. On set: 04/20/2017 Diverticulosis of colon without diverticulitis Araceli Medina D.O. Onset: 08/03/2017 Note: colonoscopy 08/03/17 Localized, primary osteoarthritis HARIKA Gonzalez Onset : 03/08/2018 Mixed hyperlipidemia Araceli Sharma D.O. Onset: 06/08 Social History Type Date Description Comments Sex Unknown ETOH Use Denies alcohol use Tobacco Use Start: Unknown Patient has never smoked Recreational Drug Use Denies Drug Use Smoking Status Reviewed: 08/01/21 Patient has never smoked Exercise Type/Frequency Does not exercise Sun Exposure Does not use sunscreen Seat Belt/Car Seat Always uses seat belt Allergies and adverse reactions Active Allergies Criticality Reaction | Severity Comments Date Penicillin Unable to assess criticality 04/20/2017 Medications Active Medications SIG Qnty Indications Ordering Provide r Date Novolog 100Unit/ML Solution inject per sliding scale subcutaneously, max daily dose 90 units. 30ml Jonah ConnerOClifton 09/25/2020 Xarelto 20mg Tablets take 1 tablet by mouth once a day 90Tablet Jonah McgheeO. 03/11 Adult Mask Large Misc cpap mask and related supplies. prognosis good. 1units G47.33 Jonah ConnerOClifton 06/22/2019 Hydrocodone-Acetaminophen 7.5-325mg Tablets take 1 tablet by mouth every 8 hours as needed for pain maximum daily dose of 3 tablets istop #: [id number] 90tabs M17.0 Leonard Mcghee.O. 06/22/2019 M54.5 Unifine Pentips 31G X 5 mm Misc Use With Victoza Daily 100units Leonard Mcghee.OClifton 02/25 Amlodipine Besylate 10mg Tablets Take One Tablet By Mouth Every Day 90tabs Leonard Mcghee.OClifton 06/07/2017 Tresiba Flextouch 20 0Unit/ML Solution Pen-Inject inject 10 units nightly and increase per instructions. Unknown Metoprolol Succinate ER 200mg Tablets ER 24HR take 1/2 tablet by mouth every day 45tabs Leonard Gross.O. Atorvastatin Calcium 20mg Tablets take one tablet by mouth every night 90tabs Leonard Mcghee.O. Sertraline HCL 50mg Tablets take 1 tablet by mouth once a day 90tabs Leonard Mcghee.O. 0 Pen [place] 3/16" 31G X 5 mm Misc use with victoza daily 100units Leonard Mcghee.OClifton Prilosec OTC 20mg Tablets DR 1 tab by mouth daily as needed Unknown Benazepril HCL 10mg Tablets 1 by mouth every day 90tabs Jonah McgheeOClifton Poly-Iron 150 150mg Capsules 1 cap by mouth daily Unknown Mag64 535(64mg) mg Tablets ER take 1 tab daily-otc med Unknown Glipizide ER 5mg Tablets ER 24HR 1 by mouth twice a day 90tabs Leonard Mcghee.O. Ranitidine HCL 300mg Capsules take 1 by mouth daily. Unknown Medications Administered in Office Medication SIG Qnty Indications Ordering Provider Date Immunization Administration Single Or Co mbination Injection Leonard Mcghee 08/04/2017 Immunizations CPT Code Status Date Vaccine Lot # [id number] Given 08/04/2017 Influenza Vaccin e Quadrivalent Preser/Antibiotic Free Im Use [id number] Vital Signs Date Vital Result Comment 08/01/2021 9:37am BP Systolic 124 mmHg BP Diastolic 72 mmHg Height 65.8 inches 5'5.80" Weight 246.00 lb BMI (Body Mass Index) 39.9 kg/m2 Heart Rate 78 /min Respiratory Rate 14 /min Body Temperature 97.2 F O2 % BldC Oximetry 97 % [place] Body Weight 136 lb 04/01/2021 9:58am BP Systolic 128 mmHg BP Diastolic 78 mmHg Height 65.8 inches 5'5.80" Weight 249.12 lb BMI (Body Mass Index) 40.5 kg/m2 Heart Rate 95 /min Respiratory Rate 18 /min Body Temperature 96.8 F O2 % BldC Oximetry 96 % [place] Body Weight 136 lb Results Test Acquired Date Facility Test Result H/L Range Note PSA Free & Total 05/02/2021 [facility] Outpatient Testi ng (Registration) [address] [place] [address] [phone] PSA Total 3.9 ng/mL Normal 0.0-4.0 1 PSA Comment (SEE NOTE) Normal . 2 Lipid Panel 05/02/2021 [facility] Outpatient Testi ng (Registration) [address], [place] [id number] [phone] Triglycerides Level 242 mg/dL High <150 Cholesterol Level 119 mg/dL Normal <200 HDL Cholesterol 28 mg/dL Low >40 LDL Cholesterol 43 mg/dL Normal <100 Non-HDL-C 91 mg/dL Normal Cholesterol Risk Ratio 4.250 Normal <5 Liver Profile 05/02/2021 [facility] Outpatient Testi reynaldo (Registration) [address] [place] [address] [phone] Ast/Sgot 35 U/L Normal 7-37 Alt/SGPT 34 U/L Normal 12-78 Alkaline Phosphatase 100 U/L Normal 45-117 Bilirubin,Total 0.5 mg/dL Normal 0.2-1.0 Bilirubin,Direct 0.1 mg/dL Normal 0.0-0.2 Total Protein 7.7 GM/DL Normal 6.4-8.2 Albumin 3.5 GM/DL Normal 3.2-5.2 Albumin/Globulin Ratio 0.8 Normal 1 Mariya ECLIA methodology. . According to the [place] [employer], Serum PSA should decrease and remain at undetectable levels after radical prostatectomy. The AUA defines biochemical recurrence as an initial PSA value 0.2 ng/mL or greater followed by a subsequent confirmatory PSA value 0.2 ng/mL or greater. Values obtained with different assay methods or kits cannot be used interchangeably. Results cannot be interpreted as absolute evidence of the presence or absence of malignant disease. 2 . The percent free PSA is performed on a reflex basis only when the total PSA is between 4.0 and 10.0 ng/mL. Performed at: RN - [facility] [address] [id number] [place] Straightener Stamper: Alessia Osuna MD, Phone: [phone] Procedures Date Code Description Status 08/01/2021 83533 Office/Outpatient Established Mo d MDM 30-39 Min Completed 04/01/2021 60986 Office/Outpatient Established Mo d MDM 30-39 Min Completed Medical Devices Description No Information Available Encounters Type Date Location Provider Dx Diagnosis Office Visit 08/01/2021 9:30a Family Medicine [facility] Donaldo Sharma D.O. E11.22 Type 2 diabetes mellitus w d iabetic chronic kidney disease I12.9 Hypertensive chronic kidney disease w stg 1-4/unsp chr kdny I48.11 Longstanding persistent atri al fibrillation G47.33 Obstructive sleep apnea (rupinder lt) (pediatric) Z79.01 exterminator termite (current) use of a nticoagulants D50.9 Iron deficiency anemia, unsp ecified Z88.0 Allergy status to penicillin Z79.899 Other long filler cigar roller machine (current) dr prince therapy N18.30 Chronic kidney disease, stag e 3 unspecified M17.0 Bilateral primary osteoarthr itis of knee E55.9 Vitamin D deficiency, unspec ified E78.2 Mixed hyperlipidemia R35.0 Frequency of micturition Office Visit 04/01/2021 10:00a [facility] HARIKA Gonzalez E11.22 Type 2 diabetes mellitus w d iabetic chronic kidney disease I12.9 Hypertensive chronic kidney disease w stg 1-4/unsp chr kdny I48.11 Longstanding persistent atri al fibrillation G47.33 Obstructive sleep apnea (rupinder lt) (pediatric) Z79.01 care home (current) use of a nticoagulants D50.9 Iron deficiency anemia, unsp ecified Z12.5 Encounter for screening for malignant neoplasm of prostate Assessments Date Code Description Provider 08/01/2021 E11.22 Type 2 diabetes mellitus with di abetic chronic kidney disease Araceli Sharma D.O. 08/01/2021 I12.9 Hypertensive chronic kidney disease with stage 1 through stage 4 chronic kidney disease, or unspecified chronic kidney disease Araceli Smallwood D.O. 08/01/2021 I48.11 Longstanding persistent atrial f ibrillation Araceli Smallwood D.O. 08/01/2021 G47.33 Obstructive sleep apnea (adult) (pediatric) Araceli Smallwood D.O. 08/01/2021 Z79.01 care home (current) use of antic oagulants Araceli Smallwood D.O. 08/01/2021 D50.9 Iron deficiency anemia, unspecif ied Araceli Sharma D.O. 08/01/2021 Z88.0 Allergy status to penicillin Gini Sharma, D.O. 08/01/2021 Z79.899 Other long filler cigar roller machine (current) drug t herapy Araceli Sharma D.O. 08/01/2021 N18.30 Chronic kidney disease, stage 3 unspecified Araceli Smallwood, D.O. 08/01/2021 M17.0 Bilateral primary osteoarthritis of knee Araceli Sharma D.O. 08/01/2021 E55.9 Vitamin D deficiency, unspecifie d Araceli Sharma D.O. 08/01/2021 E78.2 Mixed hyperlipidemia Araceli Buckner D.O. 08/01/2021 R35.0 Frequency of micturition Araceli Delgado D.O. 04/01/2021 E11.22 Type 2 diabetes mellitus with di abetic chronic kidney disease HARIKA Gonzalez 04/01/2021 I12.9 Hypertensive chronic kidney disease with stage 1 through stage 4 chronic kidney disease, or unspecified chronic kidney disease HARIKA Gonzalez 04/01/2021 I48.11 Longstanding persistent atrial f ibrillation HARIKA Gonzalez 04/01/2021 G47.33 Obstructive sleep apnea (adult) (pediatric) HARIKA Gonzalez 04/01/2021 Z79.01 care home (current) use of antic oagulants HARIKA Gonzalez 04/01/2021 D50.9 Iron deficiency anemia, unspecif ied HARIKA Gonzalez 04/01/2021 Z12.5 Encounter for screening for maldonado gnant neoplasm of prostate HARIKA Gonzalez Plan of Treatment Future Appointment(s):* 11/03/2021 10:00 am - HARIKA Gonzalez at [facility] Functional Status Description No Information Available Mental Status Description No Information Available Referrals Description No Information Available
--- OUTSIDE RECORDS SUMMARY | 2021-08-12 09:20 | CCD | Continuity of Care Document ---
Author Author Matthias PENA OR Organization Unknown Address [address] [place] [address] [place] [address] Phone [phone] Care Team Providers Care Flotation Operator Name Role Phone Family [facility] AUTM Problems Description No Information Available Social [...] Unknown Prilosec OTC Unknown Tresiba Flextouch Unknown /0 000 Immunizations Description No Information Available Vital Signs Date Vital Result Comment 07/15/2021 7:33pm BP Systolic 134 mmHg BP Diastolic 92 mmHg Heart Rate 97 /min Respiratory Rate 20 /min O2 % BldC Oximetry 95 % Body Temperature 98.2 F Weight 248.00 lb Pain Level 6 Results Description No Information Available Procedures Date Code Description Status 07/15/2021 62699 Office/Outpatient New Low MDM 30 -44 Minutes Completed Medical Devices Description No Information Available Encounters Type Date Location Provider Dx Diagnosis Office Visit 07/15/2021 4:35p Main Office HARIKA Ahumada J0 6.9 Acute upper respiratory infection, unspecified H10.022 Other mucopurulent conjuncti vitis, left eye Z20.828 Contact w and exposure to ot h viral communicable diseases Assessments Date Code Description Provider 07/15/2021 J06.9 Acute upper respiratory infectio n, unspecified HARIKA Ahumada 07/15/2021 H10.022 Other mucopurulent conjunctiviti s, left eye HARIKA Ahmuada 07/15/2021 Z20.828 Contact with and (saleh spected) exposure to other viral communicable diseases HARIKA Ahumada Plan of Treatment No Information Available Functional Status Description No Information Available Mental Status Description No Information Available Referrals Description No Information Available"
--- OUTSIDE RECORDS SUMMARY | 2021-08-12 09:20 | CCD | Continuity of Care Document ---
Author Author Matthias MARTIN PANEL EDGE SEALER Organization Unknown Address [address] [place] [address] Phone [phone] Care Team Providers Care Printed Circuit Photographer Name Role Phone Gianfranco Beck RPA AUTM [phone] Araceli Sharma DO AUTM [phone] Problems Active Problems Provider Date Chronic kidney [...] scale 30ml Sarita Martin NP 10/20/2019 Pen [place] 3/16" 31G X 5 mm Misc use [...] 6 hours as needed for pain istop [id number] M17.0 Unknown Amlodipine Besylate 10mg Tablets 1/2 [...] 9.8% Procedures Date Code Description Status 07/02/2021 85975 Office/Outpatient Established Mo d MDM 30-39 Min Completed 07/02/2021 [id number] Diabetic Foot Exam Completed 04/03/2021 86463 Office/Outpatient Established Mo d MDM 30-39 Min Completed 01/31/2021 25144 Office/Outpatient Established Mo d MDM 30-39 Min Completed Medical Devices Description No Information Available Encounters Type Date Location Provider Dx Diagnosis Office Visit 07/02/2021 11:30a DR. Della Martin, N P E11.22 Type 2 diabetes mellitus w diabetic chronic kidney disease Z79.4 termite exterminator (current) use of i nsulin N18.31 Chronic kidney disease, stag e 3a Z01.89 Encounter for other specifie d special examinations Office Visit 04/03/2021 2:45p DR. Della Martin, N P E11.22 Type 2 diabetes mellitus w diabetic chronic kidney disease Z79.4 halfway (current) use of i nsulin N18.31 Chronic kidney disease, stag e 3a Office Visit 01/31/2021 3:15p DR. Della Martin, N P E11.22 Type 2 diabetes mellitus w diabetic chronic kidney disease Z79.4 halfway (current) use of i nsulin N18.31 Chronic kidney disease, stag e 3a Z79.84 halfway (current) use of o ral hypoglycemic drugs Z01.89 Encounter for other specifie d special examinations Assessments Date Code Description Provider 07/02/2021 E11.22 Type 2 diabetes mellitus with di abetic chronic kidney disease Sartia Martin NP 07/02/2021 Z79.4 halfway (current) use of insul in Sarita Martin NP 07/02/2021 N18.31 Chronic kidney disease, stage 3a Sarita Martin NP 07/02/2021 Z01.89 Encounter for other specified sp ecial examinations Sarita Martin NP 04/03/2021 E11.22 Type 2 diabetes mellitus with di abetic chronic kidney disease Sarita Martin NP 04/03/2021 Z79.4 termite exterminator (current) use of insul in Sarita Martin NP 04/03/2021 N18.31 Chronic kidney disease, stage 3a Sarita Martin NP 01/31/2021 E11.22 Type 2 diabetes mellitus with di abetic chronic kidney disease Sarita Martin, SÁNCHEZ 01/31/2021 Z79.4 halfway (current) use of insul in Sarita Martin NP 01/31/2021 N18.31 Chronic kidney disease, stage 3a Sarita Martin, SÁNCHEZ 01/31/2021 Z79.84 halfway (current) use of oral hypoglycemic drugs Sarita [...] Tresiba Meter Downloaded and reviewed : fasting- 35-196 Reviewed meals- has stopped soda. Drinking water [...] Follow up:* 3 months JL/CBF * Z79.4 termite exterminator (current) use of insulin* Comments:* No [...]
--- OUTSIDE RECORDS SUMMARY | 2021-08-12 09:20 | CCD | Continuity of Care Document ---
Author Organization Unknown Address Unknown Phone Unavailable Care Team Providers Care Security Assessor Name Role Phone Rudy Man MD [facility] [phone] José Manuel Man MD [facility] [phone] Redd Islas MD [facility] [phone] Araceli Sharma DO [facility] Della Harrison MD [facility] [phone] Problems Active Problems Provider Date Chronic atrial fibrillation Jo Sanders, PA-C Onset: 04/2015 Essential hypertension Jo Jaquezw, PA-C Onset: 5 Electrocardiogram abnormal Jopete Jaquezw, PA-C Onset: 12/31 Cardiomegaly Jo Jaquezw, PA-C Onset: 01/01/2012 Hyperlipidemia Jopete Jaquezw, PA-C Onset: 01/01/2012 Obesity Jopete Jaquezw, PA-C Onset: 09/16/2015 Obstructive sleep apnea syndrome Jopete Jaquezw, PA-C Onset: 12/25/2013 Mixed hyperlipidemia Jo E Youngenow, PA-C Onset: 11/11/2016 Mitral valve disorder Jo Pete Jaquezw, PA-C Onset: 11/11/2016 Dietary management surveillance Jopete Jaquezw, PA-C Onset: 05/20/2017 Secondary pulmonary hypertension Jopete Sanders, PA-C Onset: 05/24/2019 Permanent atrial fibrillation Jopete Sanders, PA-C Onset: Social History Type Date Description Comments Sex Unknown Tobacco Use Start: Unknown Never Smoked Cigarettes ETOH Use Does not consume alcohol Tobacco Use Start: Unknown Patient has never smoked Smoking Status Reviewed: 04/28/21 Patient has never smoked Exercise Type/Frequency Walks 3 times a week In nice weather Exercise Type/Frequency Does yardwork four times a week Exercise Type/Frequency Does housework twice a w [place] Exercise Type/Frequency Fully active: 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 Exercise Limitations Joint Pain knees Exercise Limitations Shortness Of Breath Allergies and adverse reactions Active Allergies Criticality Reaction | Severity Comments Date Penicillins Unable to assess criticality Hives 08/22/2009 Medications Active Medications SIG Qnty Indications Ordering Provide r Date Magnesium 400mg Tablets 1 by mouth twice every day 180tabs I48.21 Juan Ramos MD 04/28/2021 Novolog Mix 70/30 Prefilled Flexpen (70-30)100Unit/ML Supn inject per sliding scale twice daily as directed Unknown 10/27/2020 Levemir Flextouch 10 0Unit/ML Solution Pen-Inject inject as directed Unknown 0 Humalog Kwikpen 100U nit/ML Solution Pen-Inject inject as directed per sliding scale Unkn own 11/23/2018 Metoprolol Succinate ER 100mg Tablets ER 24HR 1 by mouth every day Gianfranco Beck PA 05/22/2018 Glipizide 5mg Tablets 1 po qam, 1 po qhs Unknown 05/22/2018 Glucosamine Chondroitin 1500 Complex 1500Com Capsules 1 by mouth every day Unknown 018 Calcium 500+D [id number] Table ts 1 po daily Redd Islas MD 018 Vicodin 5-300mg Tablets 1-2 tabs as needed Unknown 05/19/2017 Amlodipine Besylate 5mg Tablets 1 by mouth every day Unknown 05/19/2017 Poly-Iron 150 150mg Capsules 1 by mouth daily Unknown 05/19/2017 Ranitidine HCL 300mg Capsules Take One Capsule By Mouth AT Bedtime 90caps Juan Ramos MD 0 11/17/2016 Atorvastatin Calcium 20mg Tablets 1 po qhs Bruce Kearns MD 08/24/2013 Xarelto 20mg Tablets 1 po daily 90tabs I48.2 Juan Ramos MD 07/06/2012 Sertraline HCL 50mg Tablets 1 po daily Bruce Kearns MD 01/01/2012 Immunizations Description No Information Available Vital Signs Date Vital Result Comment 04/28/2021 10:20am Weight 242.00 lb Home Weight 245lb Height 65 inches 5'5" BMI (Body Mass Index) 40.3 kg/m2 Heart Rate 72 /min Regular Respiratory Rate 16 /min BP Systolic Right Arm 134 mmHg sitting, large cuf f BP Diastolic Right Arm 80 mmHg sitting, large cu ff BP Systolic Left Arm 134 mmHg sitting BP Diastolic Left Arm 76 mmHg sitting 10/28/2020 8:42am Weight 245.00 lb Home Weight 245lb Home weight Height 65 inches 5'5" BMI (Body Mass Index) 40.8 kg/m2 Heart Rate 76 /min Regular Respiratory Rate 16 /min BP Systolic Right Arm 126 mmHg sitting, large cuf f BP Diastolic Right Arm 68 mmHg sitting, large cu ff BP Systolic Left Arm 126 mmHg sitting BP Diastolic Left Arm 66 mmHg sitting Results Test Acquired Date Facility Test Result H/L Range Note Renal Profile 07/07/2021 [facility] ([facility])- - Glucose 304 High 70-100 Blood Urea Nitrogen 33.5 High 5-21 Creatinine 1.7 High 0.6-1.5 GFR (Calculated) 40 Sodium 135.4 Low 136-146 Potassium 4.73 3.5-5.3 Chloride 100.01 98-110 Carbon Dioxide 30.5 20-32 Calcium 9.1 8.4-10.4 Phosphorus 3.4 Albumin 4.0 3.5-4.7 CBC without Differential 07/07/2021 [facility] ([facility])- - White Blood Count 9.6 4.3-10.9 Red Blood Count 4.80 4.70-6.20 Platelets 220 130-400 Hemoglobin 13.1 13.0-17.0 Hematocrit 39.8 39.0-50.0 Lipid Panel 05/02/2021 [facility] nter [phone] Triglycerides Level 242 mg/dL High <150 Cholesterol Level 119 mg/dL Normal <200 HDL Cholesterol 28 mg/dL Low >40 LDL Cholesterol 43 mg/dL Normal <100 Non-HDL-C 91 mg/dL Normal Cholesterol Risk Ratio 4.250 Normal <5 Liver Profile 05/02/2021 [facility] [phone] Ast/Sgot 35 U/L Normal 7-37 Alt/SGPT 34 U/L Normal 12-78 Alkaline Phosphatase 100 U/L Normal 45-117 Bilirubin,Total 0.5 mg/dL Normal 0.2-1.0 Bilirubin,Direct 0.1 mg/dL Normal 0.0-0.2 Total Protein 7.7 GM/DL Normal 6.4-8.2 Albumin 3.5 GM/DL Normal 3.2-5.2 Albumin/Globulin Ratio 0.8 Normal BMP 03/28/2021 [facility] (315)- - Calcium Ser/Plasma Mass/Vol 8.9 Sodium 136 Carbon Dioxide Ser/Plasm 27.1 Chloride Serum/Plasma 104.7 Potassium 4.21 Glucose 184 High 70-106 Blood Urea Nitrogen 34.7 High 7-18 Creatinine 1.7 High 0.55-1.3 G F R 40 Laboratory test finding 03/28/2021 [facility] ([facility])- - Magnesium Level 1.54 CBC without Differential 03/28/2021 [facility] ([facility])- - White Blood Count 8.6 5.0-10.0 Red Blood Count 4.93 4.70-6.10 Platelets 226 172-450 Hemoglobin 13.7 Low 14.0-18.0 Hematocrit 41.0 Low 42.0-52.0 Procedures Date Code Description Status 04/28/2021 67592 Office/Outpatient Established Mo d MDM 30-39 Min Completed 04/28/2021 82337 ECG 12-Lead Completed Medical Devices Description No Information Available Encounters Type Date Location Provider Dx Diagnosis Office Visit 04/28/2021 9:45a Main Office Jo Sanders PA-C I48.2 1 Permanent atrial fibrillation I11.9 Hypertensive heart disease w [facility] heart failure I34.0 Nonrheumatic mitral (valve) insufficiency R94.31 Abnormal electrocardiogram [ ECG] [EKG] E78.2 Mixed hyperlipidemia I27.29 Other secondary pulmonary hy pertension G47.33 Obstructive sleep apnea (rupinder lt) (pediatric) Z71.3 Dietary counseling and surve illance Assessments Date Code Description Provider 04/28/2021 I48.21 Permanent atrial fibrillation Ester Allison PA-C 04/28/2021 I11.9 Hypertensive heart disease witho id heart failure Jo Sanders PA-C 04/28/2021 I34.0 Nonrheumatic mitral (valve) insu fficiency Jo Sanders PA-C 04/28/2021 R94.31 Abnormal electrocardiogram [ECG] [EKG] Jo Sanders PA-C 04/28/2021 E78.2 Mixed hyperlipidemia Jo cruz PA-C 04/28/2021 I27.29 Other secondary pulmonary hypert ension Jo Sanders PA-C 04/28/2021 G47.33 Obstructive sleep apnea (adult) (pediatric) Jo Sanders PA-C 04/28/2021 Z71.3 Dietary counseling and surveilla nce Jo Sanders PA-C Plan of Treatment Future Appointment(s):* 10/29/2021 8:15 am - Jo Sanders PA-C at Main Office 04/28/2021 - Jo Sanders PA-C* I48.21 Permanent atrial fibrillation* New Medication:* Magnesium 400 mg - 1 by mouth twice every day * Recommendations:* 1. Start taking magnesium 400 mg one pill twice a day. * I11.9 Hypertensive heart disease without heart failure * I34.0 Nonrheumatic mitral (valve) insufficiency * R94.31 Abnormal electrocardiogram [ECG] [EKG] * E78.2 Mixed hyperlipidemia * I27.29 Other secondary pulmonary hypertension * G47.33 Obstructive sleep apnea (adult) (pediatric) * Z71.3 Dietary counseling and surveillance * All * Follow up:* 6 month follow up. Functional Status Functional Condition Comment Date Status Independent with all ADL's Activ e Mental Status Description No Information Available Referrals Description No Information Available
--- OUTSIDE RECORDS SUMMARY | 2021-08-12 09:21 | CCD ---
Author Author [facility] Organization [facility] Address Unknown Phone Unavailable Care Team Providers Care Environmental Studies Professor Name Role Phone YoungenowArgentina PA Unavailable Unavailable Symenow, Argentina Osorio PA Unavailable Unavailable Symenow, Argentina Osorio PA Unavailable Unavailable Symenow, Argentina Osorio PA Unavailable Unavailable Symenow, Argentina Osorio PA Unavailable Unavailable Symenow, Argentina Osorio PA Unavailable Unavailable Symenow, Argentina Osorio PA Unavailable Unavailable Symenow, Argentina Osorio PA Unavailable Unavailable Symenow, Argentina Osorio PA Unavailable Unavailable Symenow, Argentina Osorio PA Unavailable Unavailable Symenow, Argentina Jo PA Unavailable Unavailable Symenow, Argentina Jo PA Unavailable Unavailable Symenow, Argentina Montaneze PA Unavailable Unavailable Symenow, Argentina Jo PA Unavailable Unavailable Symenow, Argentina Jo PA Unavailable Unavailable Symenow, Argentina Jo PA Unavailable Unavailable Symenow, Argentina Jo PA Unavailable Unavailable Symenow, Argentina Jo PA Unavailable Unavailable Symenow, Argentina Jo PA Unavailable Unavailable Symenow, Argentina Jo PA Unavailable Unavailable Symenow, Argentina Jo PA Unavailable Unavailable Symenow, Argentina Osorio PA Unavailable Unavailable Symenow, Argentina Jo PA Unavailable Unavailable Symenow, Argentina Jo PA Unavailable Unavailable Symenow, Argentina Jo PA Unavailable Unavailable Symenow, Argentina Jo PA Unavailable Unavailable Symenow, Argentina Jo PA Unavailable Unavailable Symenow, Argentina Montaneze PA Unavailable Unavailable Symenow, Argentina Jo PA Unavailable Unavailable Symenow, Argentina Jo PA Unavailable Unavailable Symenow, Argentina Jo PA Unavailable Unavailable Symenow, Argentina Jo PA Unavailable Unavailable Symenow, Argentina Jo PA Unavailable Unavailable Symenow, Argentina Jo PA Unavailable Unavailable VERONICA, B SHAYAN EXTRACTOR PLANT OPERATOR Unavailable Unavailable VERONICA, B SHAYAN EXTRACTOR PLANT OPERATOR Unavailable Unavailable VERONICA, B SHAYAN EXTRACTOR PLANT OPERATOR Unavailable Unavailable VERONICA, B SHAYAN EXTRACTOR PLANT OPERATOR Unavailable Unavailable VERONICA, B SHAYAN EXTRACTOR PLANT OPERATOR Unavailable Unavailable VERONICA, B SHAYAN EXTRACTOR PLANT OPERATOR Unavailable Unavailable VERONICA, B SHAYAN EXTRACTOR PLANT OPERATOR Unavailable Unavailable VERONICA, B SHAYAN EXTRACTOR PLANT OPERATOR Unavailable Unavailable VERONICA, B SHAYAN EXTRACTOR PLANT OPERATOR Unavailable Unavailable VERONICA, B SHAYAN EXTRACTOR PLANT OPERATOR Unavailable Unavailable VERONICA, B SHAYAN EXTRACTOR PLANT OPERATOR Unavailable Unavailable VERONICA, B SHAYAN EXTRACTOR PLANT OPERATOR Unavailable Unavailable VERONICA, B SHAYAN EXTRACTOR PLANT OPERATOR Unavailable Unavailable VERONICA, B SHAYAN EXTRACTOR PLANT OPERATOR Unavailable Unavailable VERONICA, B SHAYAN EXTRACTOR PLANT OPERATOR Unavailable Unavailable VERONICA, B SHAYAN EXTRACTOR PLANT OPERATOR Unavailable Unavailable VERONICA, B SHAYAN EXTRACTOR PLANT OPERATOR Unavailable Unavailable VERONICA, B SHAYAN EXTRACTOR PLANT OPERATOR Unavailable Unavailable VERONICA, B SHAYAN EXTRACTOR PLANT OPERATOR Unavailable Unavailable VERONICA, B SHAYAN EXTRACTOR PLANT OPERATOR Unavailable Unavailable VERONICA, B SHAYAN EXTRACTOR PLANT OPERATOR Unavailable Unavailable VERONICA, B SHAYAN EXTRACTOR PLANT OPERATOR Unavailable Unavailable VERONICA, B SHAYAN EXTRACTOR PLANT OPERATOR Unavailable Unavailable VERONICA, B SHAYAN EXTRACTOR PLANT OPERATOR Unavailable Unavailable VERONICA, B SHAYAN EXTRACTOR PLANT OPERATOR Unavailable Unavailable VERONICA, B SHAYAN EXTRACTOR PLANT OPERATOR Unavailable Unavailable VERONICA, B SHAYAN EXTRACTOR PLANT OPERATOR Unavailable Unavailable VERONICA, B SHAYAN EXTRACTOR PLANT OPERATOR Unavailable Unavailable VERONICA, B SHAYAN EXTRACTOR PLANT OPERATOR Unavailable Unavailable VERONICA, B SHAYAN EXTRACTOR PLANT OPERATOR Unavailable Unavailable VERONICA, B SHAYAN EXTRACTOR PLANT OPERATOR Unavailable Unavailable VERONICA, B SHAYAN EXTRACTOR PLANT OPERATOR Unavailable Unavailable VERONICA, B SHAYAN EXTRACTOR PLANT OPERATOR Unavailable Unavailable VERONICA, B SHAYAN EXTRACTOR PLANT OPERATOR Unavailable Unavailable VERONICA, B SHAYAN EXTRACTOR PLANT OPERATOR Unavailable Unavailable VERONICA, B SHAYAN EXTRACTOR PLANT OPERATOR Unavailable Unavailable VERONICA, B SHAYAN EXTRACTOR PLANT OPERATOR Unavailable Unavailable VERONICA, B SHAYAN EXTRACTOR PLANT OPERATOR Unavailable Unavailable VERONICA, B SHAYAN EXTRACTOR PLANT OPERATOR Unavailable Unavailable VERONICA, B SHAYAN EXTRACTOR PLANT OPERATOR Unavailable Unavailable VERONICA, B SHAYAN EXTRACTOR PLANT OPERATOR Unavailable Unavailable VERONICA, B SHAYAN EXTRACTOR PLANT OPERATOR Unavailable Unavailable VERONICA, B SHAYAN EXTRACTOR PLANT OPERATOR Unavailable Unavailable VERONICA, B SHAYAN EXTRACTOR PLANT OPERATOR Unavailable Unavailable VERONICA, B SHAYAN EXTRACTOR PLANT OPERATOR Unavailable Unavailable VERONICA, B SHAYAN EXTRACTOR PLANT OPERATOR Unavailable Unavailable VERONICA, B SHAYAN EXTRACTOR PLANT OPERATOR Unavailable Unavailable VERONICA, B SHAYAN EXTRACTOR PLANT OPERATOR Unavailable Unavailable VERONICA, B SHAYAN EXTRACTOR PLANT OPERATOR Unavailable Unavailable VERONICA, B SHAYAN EXTRACTOR PLANT OPERATOR Unavailable Unavailable VERONICA, B SHAYAN EXTRACTOR PLANT OPERATOR Unavailable Unavailable VERONICA, B SHAYAN EXTRACTOR PLANT OPERATOR Unavailable Unavailable VERONICA, B SHAYAN EXTRACTOR PLANT OPERATOR Unavailable Unavailable VERONICA, B SHAYAN EXTRACTOR PLANT OPERATOR Unavailable Unavailable VERONICA, B SHAYAN EXTRACTOR PLANT OPERATOR Unavailable Unavailable VERONICA, B SHAYAN EXTRACTOR PLANT OPERATOR Unavailable Unavailable VERONICA, B SHAYAN EXTRACTOR PLANT OPERATOR Unavailable Unavailable VERONICA, B SHAYAN EXTRACTOR PLANT OPERATOR Unavailable Unavailable VERONICA, B SHAYAN EXTRACTOR PLANT OPERATOR Unavailable Unavailable VERONICA, B SHAYAN EXTRACTOR PLANT OPERATOR Unavailable Unavailable VERONICA, B SHAYAN EXTRACTOR PLANT OPERATOR Unavailable Unavailable VERONICA, B SHAYAN EXTRACTOR PLANT OPERATOR Unavailable Unavailable BUDDY-MILO, RIZWANA DO Unavailable Unavailable BUDDY-MILO, RIZWANA DO Unavailable Unavailable BUDDY-MILO, RIZWANA DO Unavailable Unavailable BUDDY-MILO, RIZWANA DO Unavailable Unavailable BUDDY-MILO, RIZWANA DO Unavailable Unavailable BUDDY-MILO, RIZWANA DO Unavailable Unavailable BUDDY-MILO, RIZWANA DO Unavailable Unavailable BUDDY-MILO, RIZWANA DO Unavailable Unavailable BUDDY-MILO, RIZWANA DO Unavailable Unavailable BUDDY-MILO, RIZWANA DO Unavailable Unavailable BUDDY-MILO, RIZWANA DO Unavailable Unavailable BUDDY-MILO, RIZWANA DO Unavailable Unavailable BUDDY-MILO, RIZWANA DO Unavailable Unavailable BUDDY-MILO, RIZWANA DO Unavailable Unavailable BUDDY-MILO, RIZWANA DO Unavailable Unavailable BUDDY-MILO, RIZWANA DO Unavailable Unavailable BUDDY-MILO, RIZWANA DO Unavailable Unavailable BUDDY-MILO, RIZWANA DO Unavailable Unavailable BUDDY-MILO, RIZWANA DO Unavailable Unavailable BUDDY-MILO, RIZWANA DO Unavailable Unavailable BUDDY-MILO, RIZWANA DO Unavailable Unavailable BUDDY-MILO, RIZWANA DO Unavailable Unavailable BUDDY-MILO, RIZWANA DO Unavailable Unavailable BUDDY-MILO, RIZWANA DO Unavailable Unavailable BUDDY-MILO, RIZWANA DO Unavailable Unavailable BUDDY-MILO, RIZWANA DO Unavailable Unavailable BUDDY-MILO, RIZWANA DO Unavailable Unavailable BUDDY-MILO, RIZWANA DO Unavailable Unavailable BUDDY-MILO, RIZWANA DO Unavailable Unavailable BUDDY-MILO, RIZWANA DO Unavailable Unavailable BUDDY-MILO, RIZWANA DO Unavailable Unavailable BUDDY-MILO, RIZWANA DO Unavailable Unavailable BUDDY-MILO, RIZWANA DO Unavailable Unavailable BUDDY-MILO, RIZWANA DO Unavailable Unavailable BUDDY-MILO, RIZWANA DO Unavailable Unavailable BUDDY-MILO, RIZWANA DO Unavailable Unavailable BUDDY-MILO, RIZWANA DO Unavailable Unavailable BUDDY-MILO, RIZWANA DO Unavailable Unavailable BUDDY-MILO, RIZWANA DO Unavailable Unavailable BUDDY-MILO, RIZWANA DO Unavailable Unavailable BUDDY-MILO, RIZWANA DO Unavailable Unavailable BUDDY-MILO, RIZWANA DO Unavailable Unavailable BUDDY-MILO, RIZWANA DO Unavailable Unavailable BUDDY-MILO, RIZWANA DO Unavailable Unavailable BUDDY-MILO, RIZWANA DO Unavailable Unavailable BUDDY-MILO, RIZWANA DO Unavailable Unavailable BUDDY-MILO, RIZWANA DO Unavailable Unavailable BUDDY-MILO, RIZWANA DO Unavailable Unavailable BUDDY-MILO, RIZWANA DO Unavailable Unavailable BUDDY-MILO, RIZWANA DO Unavailable Unavailable BUDDY-MILO, RIZWANA DO Unavailable Unavailable BUDDY-MILO, RIZWANA DO Unavailable Unavailable BUDDY-MILO, RIZWANA DO Unavailable Unavailable BUDDY-MILO, RIZWANA DO Unavailable Unavailable BUDDY-MILO, RIZWANA DO Unavailable Unavailable BUDDY-MILO, RIZWANA DO Unavailable Unavailable BUDDY-MILO, RIZWANA DO Unavailable Unavailable BUDDY-MILO, RIZWANA DO Unavailable Unavailable BUDDY-MILO, RIZWANA DO Unavailable Unavailable BUDDY-MILO, RIZWANA DO Unavailable Unavailable BUDDY-MILO, RIZWANA DO Unavailable Unavailable BUDDY-MILO, RIZWANA DO Unavailable Unavailable BUDDY-MILO, RIZWANA DO Unavailable Unavailable BUDDY-MILO, RIZWANA DO Unavailable Unavailable BUDDY-MILO, RIZWANA DO Unavailable Unavailable BUDDY-MILO, RIZWANA DO Unavailable Unavailable BUDDY-MILO, RIZWANA DO Unavailable Unavailable BUDDY-MILO, RIZWANA DO Unavailable Unavailable BUDDY-MILO, RIZWANA DO Unavailable Unavailable BUDDY-MILO, RIZWANA DO Unavailable Unavailable BUDDY-MILO, RIZWANA DO Unavailable Unavailable BUDDY-MILO, RIZWANA DO Unavailable Unavailable BUDDY-MILO, RIZWAAN DO Unavailable Unavailable BUDDY-MILO, RIZWANA DO Unavailable Unavailable BUDDY-MILO, RIZWANA DO Unavailable Unavailable BUDDY-MILO, RIZWANA DO Unavailable Unavailable BUDDY-MILO, RIZWANA DO Unavailable Unavailable BUDDY-MILO, RIZWANA DO Unavailable Unavailable BUDDY-MILO, RIZWANA DO Unavailable Unavailable BUDDY-MILO, RIZWANA DO Unavailable Unavailable BUDDY-MILO, RIZWANA DO Unavailable Unavailable BUDDY-MILO, RIZWANA DO Unavailable Unavailable BUDDY-MILO, RIZWANA DO Unavailable Unavailable BUDDY-MILO, RIZWANA DO Unavailable Unavailable Kiran, Gianfranco PA Unavailable Unavailable Kiran, Gianfranco PA Unavailable Unavailable Kiran, Gianfranco PA Unavailable Unavailable Kiran, Gianfranco PA Unavailable Unavailable Kiran, Gianfranco PA Unavailable Unavailable Kiran, Gianfranco PA Unavailable Unavailable Kiran, Gianfranco PA Unavailable Unavailable Kiran, Gianfranco PA Unavailable Unavailable Kiran, Gianfranco PA Unavailable Unavailable Kiran, Gianfranco PA Unavailable Unavailable Kiran, Gianfranco PA Unavailable Unavailable Kiran, Gianfranco PA Unavailable Unavailable Kiran, Gianfranco PA Unavailable Unavailable Kiran, Gianfranco PA Unavailable Unavailable Kiran, Gianfranco PA Unavailable Unavailable Kiran, Gianfranco PA Unavailable Unavailable Kiran, Gianfranco PA Unavailable Unavailable Kiran, Gianfranco PA Unavailable Unavailable Kiran, Gianfranco PA Unavailable Unavailable Kiran, Gianfranco PA Unavailable Unavailable Kiran, Gianfranco PA Unavailable Unavailable Kiran, Gianfranco PA Unavailable Unavailable Kiran, Gianfranco PA Unavailable Unavailable Kiran, Gianfranco PA Unavailable Unavailable Kiran, Gianfranco PA Unavailable Unavailable Kiran, Gianfranco PA Unavailable Unavailable Kiran, Gianfranco PA Unavailable Unavailable Kiran, Gianfranco PA Unavailable Unavailable Kiran, Gianfranco PA Unavailable Unavailable Kiran, Gianfranco PA Unavailable Unavailable Kiran, Gianfranco PA Unavailable Unavailable Kiran, Gianfranco PA Unavailable Unavailable Kiran, Gianfranco PA Unavailable Unavailable Kiran, Gianfranco PA Unavailable Unavailable Kiran, Gianfranco PA Unavailable Unavailable Kiran, Gianfranco PA Unavailable Unavailable Kiran, Gianfranco PA Unavailable Unavailable Kiran, Gianfranco PA Unavailable Unavailable Kiran, Gianfranco PA Unavailable Unavailable Kiran, Gianfranco PA Unavailable Unavailable Kiran, Gianfranco PA Unavailable Unavailable Kiran, Gianfranco PA Unavailable Unavailable Kiran, Gianfranco PA Unavailable Unavailable Kiran, Gianfranco PA Unavailable Unavailable Kiran, Gianfranco PA Unavailable Unavailable Kiran, Gianfranco PA Unavailable Unavailable Kiran, Gianfranco PA Unavailable Unavailable Kiran, Gianfranco PA Unavailable Unavailable Kiran, Gianfranco PA Unavailable Unavailable Kiran, Gianfranco PA Unavailable Unavailable Kiran, Gianfranco PA Unavailable Unavailable Kiran, Gianfranco PA Unavailable Unavailable Kiran, Gianfranco PA Unavailable Unavailable Kiran, Gianfranco PA Unavailable Unavailable Campanaro, Mare America PA Unavailable Unavailable Campanaro, Mare America PA Unavailable Unavailable Campanaro, Mare America PA Unavailable Unavailable Campanaro, Mare America PA Unavailable Unavailable Campanaro, Mare America PA Unavailable Unavailable Campanaro, Mare America PA Unavailable Unavailable Campanaro, Mare America PA Unavailable Unavailable Campanaro, Mare America PA Unavailable Unavailable Campanaro, Mare America PA Unavailable Unavailable Campanaro, Mare America PA Unavailable Unavailable Campanaro, Mare America PA Unavailable Unavailable Campanaro, Mare America PA Unavailable Unavailable Campanaro, Mare America PA Unavailable Unavailable Campanaro, Mare America PA Unavailable Unavailable Campanaro, Mare America PA Unavailable Unavailable Campanaro, Mare America PA Unavailable Unavailable Campanaro, Mare America PA Unavailable Unavailable ETHAN, M ROBERTA PA Unavailable Unavailable ETHAN, M ROBERTA PA Unavailable Unavailable ETHAN, M ROBERTA PA Unavailable Unavailable ETHAN, M ROBERTA PA Unavailable Unavailable ETHAN, M ROBERTA PA Unavailable Unavailable ETHAN, M ROBERTA PA Unavailable Unavailable ETHAN, M ROBERTA PA Unavailable Unavailable ETHNA, M ROBERTA PA Unavailable Unavailable ETHAN, M ROBERTA PA Unavailable Unavailable ETHAN, M ROBERTA PA Unavailable Unavailable ETHAN, M ROBERTA PA Unavailable Unavailable ETHAN, M ROBERTA PA Unavailable Unavailable ETHAN, M ROBERTA PA Unavailable Unavailable ETHAN, M ROBERTA PA Unavailable Unavailable ETHAN, M ROBERTA PA Unavailable Unavailable ETHAN, M ROBERTA PA Unavailable Unavailable ETHAN, M ROBERTA PA Unavailable Unavailable ETHAN, M ROBERTA PA Unavailable Unavailable ETHAN, M ROBERTA PA Unavailable Unavailable ETHAN, M ROBERTA PA Unavailable Unavailable ETHAN, M ROBERTA PA Unavailable Unavailable ETHAN, M ROBERTA PA Unavailable Unavailable ETHAN, M ROBERTA PA Unavailable Unavailable ETHAN, M ROBERTA PA Unavailable Unavailable Re-disclosure Warning The records that you are about to access may contain information from federally-assisted alcohol or drug abuse programs. If such information is present, then the following federally mandated warning applies: This information has been disclosed to you from records protected by federal confidentiality rules (42 CFR part 2). The federal rules prohibit you from making any further disclosure of this information unless further disclosure is expressly permitted by the written consent of the person to whom it pertains or as otherwise permitted by 42 CFR part 2. A general authorization for the release of medical or other information is NOT sufficient for this purpose. The Federal rules restrict any use of the information to criminally investigate or prosecute any alcohol or drug abuse patient.The records that you are about to access may contain highly sensitive health information, the redisclosure of which is protected by Article 27-F of the [place] Public Health law. If you continue you may have access to information: Regarding HIV / AIDS; Provided by facilities licensed or operated by the [place] [facility] Office of Mental Health; or Provided by the [place] [facility] Office for People With Developmental Disabilities. If such information is present, then the following [facility] [facility] mandated warning applies: This information has been disclosed to you from confidential records which are protected by state law. State law prohibits you from making any further disclosure of this information without the specific written consent of the person to whom it pertains, or as otherwise permitted by law. Any unauthorized further disclosure in violation of state law may result in a fine or fdc sentence or both. A general authorization for the release of medical or other information is NOT sufficient authorization for further disc losure. Family History Family Member Name Family Member Gender Family Member Status Date o f Status Description Data Source(s) Unknown Unknown Problem [facility] ([facility]) Unknown Male Problem [facility] ([facility]) Unknown Male Problem [facility] ([facility]) Encounters Encounter Providers Location Date Indications Data Source(s ) Outpatient Attender: RIZWANA SORENSEN DO [facility] 08/01/2021 09:30:00 AM EDT [facility] ([facility]) Outpatient Attender: America Barnett [facility] 07/15/2021 04:35:00 PM EDT [facility] ([facility]) Outpatient Attender: SHAYAN MARTIN NP Physical Therapy 11:30:00 AM EDT [facility] ([facility]) Outpatient Attender: Jo SHABAZZ Main Office 04/28/2021 09:45:00 AM EDT [facility] ([facility]) Outpatient Attender: SHAYAN MARTIN NP Physical Therapy 02:45:00 PM EDT [facility] ([facility]) Outpatient Attender: Gianfranco SHABAZZ Family Medicine [facility] 04/01/2021 10:00:00 AM EDT [facility] ([facility]) Outpatient Attender: SHAYAN MARTIN NP Physical Therapy 03:15:00 PM EDT [facility] ([facility]) Outpatient Attender: RIZWANA SORENSEN DO [facility] 12/26/2020 09:00:00 AM EDT [facility] ([facility]) Outpatient Attender: SHAYAN MARTIN NP Physical Therapy 02:15:00 PM EDT [facility] ([facility]) OFFICE OUTPATIENT NEW 30 MINUTES Attender: ROBERTA SHABAZZ Phys ical Therapy 11/14/2020 05:30:00 PM EST [facility] ([facility]) Outpatient Attender: Gianfranco SHABAZZ [facility] 11/06/2020 08:40:00 AM EST [facility] ([facility]) Office Visit Attender: Gianfranco SHABAZZ [facility] 09/25/2020 08:00:00 AM EST [facility] ([facility]) Outpatient Attender: SHAYAN MARTIN NP Physical Therapy 12:15:00 PM EST [facility] ([facility]) Outpatient Attender: SHAYAN MARTIN EXTRACTOR PLANT OPERATOR Physical Therapy 01:15:00 PM EDT [facility] ([facility]) Outpatient Attender: Gianfranco SHABAZZ [facility] 06/26/2020 09:00:00 AM EDT [facility] ([facility]) Immunizations Vaccine Date Status Description Data Source(s) COVID-19 VACCINE Pfizer 06/18/2021 12:00:00 AM EDT completed [employer] Vaccine Series Complete: NOThis Data was Submitted to [facility] Via [employer]. COVID-19 VACC, MRNA(PFIZER)/PF 06/18/2021 12:00:00 AM EDT completed [facility] Medications Medication Brand Name Start Date Product Form Dose Route Admi nistrative Instructions Pharmacy Instructions Status Indications Reaction Description Data Source(s) Erythromycin 0.005 MG/MG Ophthalmic Ointment Erythromycin 07/15/2021 12:00:00 AM EDT active [facility] ([facility]) 90 mcg/actuation 07/15/2021 12:00:00 AM EDT HFA aerosol inha ler 8 INHALE 1-2 PUFFS 3-4 TIMES PER DAY FOR FOR SHORTNESS OF BREATH WHEEZING INHALE 1-2 PUFFS 3- 4 TIMES PER DAY FOR FOR SHORTNESS OF BREATH WHEEZING SOLD: 07/15/2021 [facility] 60 ACTUAT Albuterol 0.09 MG/ACTUAT Metered Dose Inhaler Albu terol Sulfate HFA 07/15/2021 12:00:00 AM EDT RESPIRATORY active [facility] ([facility]) 5 mg/gram (0.5 %) 07/15/2021 12:00:00 AM EDT ointment 3 APPLY SMALL AMOUNT IN THE LEFT EYE FOUR TIMES A DAY FOR 7 DAYS APPLY SMALL AMOUNT IN THE LEFT EYE FOUR TIMES A DAY FOR 7 DAYS SOLD: 07/15/2021 [facility] Magnesium 04/28/2021 12:00:00 AM EDT ORAL active [facility] ([facility]) Tresiba Flextouch Tresiba Flextouch 12/24/2020 12:00:00 AM EDT active [facility] ([facility] 3 ML Insulin, Aspart Protamine, Human 70 UNT/ML / Insulin, Aspart, Human 30 UNT/ML Pen Injector [NovoLog Mix] Novolog Mix 70/30 Prefilled Flexpen 10/27/2020 12:00:00 AM EST active M EDENT ([facility]) 3 ML insulin detemir 100 UNT/ML Pen Injector [Levemir] Levem ir Flextouch 09/25/2020 12:00:00 AM EST SUBCUTANEOUS completed [facility] ([facility]) Insulin, Aspart, Human 100 UNT/ML Injectable Solution [NovoL og] Novolog 09/25/2020 12:00:00 AM EST SUBCUTANEOUS active [facility] ([facility]) Insurance Providers Payer name Policy type / Coverage type Policy ID Covered republican ID Covered republican's relationship to martinez Policy Martinez Plan Information Blue Ppo Medigap Part B [id number] Family Dependent [id number] Blue Ppo Medigap Part B [id number] Family Dependent [id number] Blue Ppo Medigap Part B [id number] Family Dependent [id number] Blue Ppo Medigap Part B [id number] Family Dependent [id number] Blue Ppo Medigap Part B [id number] Family Dependent Blue Ppo Medigap Part B [id number] Family Dependent [id number] Blue Ppo Medigap Part B [id number] Family Dependent [id number] BC/BS [place] [employer] [id number] Family Dependent BCBS [place] [employer] [id number] Family Dependent BCBS [employer] U[employer] Commercial [id number] 2..1.113 [id number] Family Dependent [id number] [employer]BS [employer] [employer] Commercial [id number] Family Dependent V [id number] [employer]BS [employer] [id number] [id number] [id number] Family Dependent [id number] BC/BS [place] [employer] [id number] Family Dependent BC[employer] U[employer] Commercial [id number] [id number] [id number] Family Dependent [id number] [employer] Commercial [id number] 2..1.113 [id number] Family Dependent [id number] BCBS [employer] U/[employer] Commercial [id number] Family Dependent V [id number] Blue Cross Blue Shield P [id number] SELF [id number] [place] PPO 302/307 [id number] [place] [id number] [place] 306/806 [id number] SP [id number] [place] 306/806 [id number] SP [id number] [place] 306/806 [id number] [place] [id number] WELLCARE [id number] SP [id number] WELLCARE O [id number] S [id number] [employer] U/W Commercial [id number] Family Dependent [id number] BS [place] [id number] Family Dependent [id number] BS [place] [id number] Family Dependent [id number] [facility] U/W Commercial [id number] Family Dependent VY [id number] [place] [id number] Family Dependent [id number] [facility] U/W Commercial [id number] Family Dependent VY [id number] [facility] U/W Commercial [id number] Family Dependent VY [id number] [facility] U/W Commercial [id number] Family Dependent VY [id number] [facility] U/W Commercial [id number] Family Dependent VY [id number] [facility] B [id number] O VYS [id number] [facility] U/W Commercial [id number] Family Dependent VY [id number] [employer] [id number] Family Dependent VY [id number] [employer] [id number] Family Dependent VY [id number] [employer] [place] 306/806 [id number] [place]2 [id number] [employer] [id number] Family Dependent VY [id number] [employer] B [id number] P VYS [id number] Problems, Conditions, and Diagnoses No Information Surgeries/Procedures Procedure Description Date Indications Data Source(s) OFFICE OUTPATIENT VISIT 25 MINUTES 08/01/2021 12:00:00 AM EDT [facility] ([facility]) OFFICE OUTPATIENT NEW 30 MINUTES 07/15/2021 12:00:00 A M EDT [facility] ([facility]) Diabetic Foot Exam 07/02/2021 12:00:00 AM EDT [facility] ([facility]) OFFICE OUTPATIENT VISIT 25 MINUTES 07/02/2021 12:00:00 AM EDT [facility] ([facility]) ECG ROUTINE ECG W/LEAST 12 LDS W/I&R 04/28/2021 12:00: 00 AM EDT [facility] ([facility]) OFFICE OUTPATIENT VISIT 25 MINUTES 04/28/2021 12:00:00 AM EDT [facility] ([facility]) OFFICE OUTPATIENT VISIT 25 MINUTES 04/03/2021 12:00:00 AM EDT [facility] ([facility] ) OFFICE OUTPATIENT VISIT 25 MINUTES 04/01/2021 12:00:00 AM EDT [facility] ([facility]) OFFICE OUTPATIENT VISIT 25 MINUTES 01/31/2021 12:00:00 AM EDT [facility] ([facility]) OFFICE OUTPATIENT VISIT 25 MINUTES 12/26/2020 12:00:00 AM EDT [facility] ([facility] OFFICE OUTPATIENT VISIT 25 MINUTES 12/24/2020 12:00:00 AM EDT [facility] ([facility]) OFFICE OUTPATIENT VISIT 15 MINUTES 11/06/2020 12:00:00 AM EST [facility] ([facility]) Results ID Date Data Source [id number] 07/15/2021 12:00:00 AM EDT [facility] Name Value Range Interpretation Code Description Data Malu rce(s) Supporting Document(s) SARS-CoV2 Rapid Antigen Negative [facility] This lab was ordered by [facility] and reported by [facility]. ID Date Data Source [id number] 07/08/2021 09:00:00 PM EDT [facility] ([facility]) Name Value Range Interpretation Code Description Data Malu rce(s) Supporting Document(s) Creatinine [Mass/volume] in Urine 187.0 mg/dL [facility] ([facility]) Microalbumin/Creatinine [Mass Ratio] in Urine 8.1 MCG/MG 0.0-30.0 [facility] ([facility]) THE [employer] STATES THAT MICROALBUMINURIA IS PRESENT IF THE MICROALBUMIN/CREATININE RATIO EXCEEDS 30 MCG/MG. THE THRESHOLD FOR CLINICAL ALBUMINURIA IS REACHED AT 300 MCG/MG. THE CLASSIFICATION OF A PATIENT SHOULD BE BASED UPON AT LEAST 2 OF 3 ABNORMAL RESULTS ON SPECIMENS COLLECTED WITHIN A 3 TO 6 MONTH TIME FRAME. Microalbumin [Mass/volume] in Urine 15.3 mg/L [facility] ([facility]) ID Date Data Source [id number] 07/07/2021 03:54:00 PM EDT [facility] ([facility]) Name Value Range Interpretation Code Description Data Malu rce(s) Supporting Document(s) Red Blood Count 4.80 4.70-6.20 [facility] ([facility]) White Blood Count 9.6 4.3-10.9 [facility] ([facility]) Platelets 220 130-400 [facility] ([facility]) Hemoglobin 13.1 13.0-17.0 [facility] ([facility]) Hematocrit 39.8 39.0-50.0 [facility] ([facility]) ID Date Data Source [id number] 07/07/2021 03:54:00 PM EDT [facility] ([facility]) Name Value Range Interpretation Code Description Data Malu rce(s) Supporting Document(s) Glucose 304 70-100 [facility] Creatinine 1.7 0.6-1.5 [facility] ([facility]) Glomerular filtration rate/1.73 sq M.pre dicted [Volume Rate/Area] in Serum or Plasma by Creatinine-based formula (MDRD) 40 [facility] ([facility]) Blood Urea Nitrogen 33.5 5-21 [facility] ([facility]) Potassium 4.73 3.5-5.3 [facility] Sodium 135.4 136-146 [facility] Chloride 100.01 98-110 [facility] ([facility] Carbon Dioxide 30.5 20-32 [facility] ([facility]) Phosphorus 3.4 [facility] ([facility]) Calcium 9.1 8.4-10.4 [facility] Albumin 4.0 3.5-4.7 [facility] ([facility]) ID Date Data Source [id number] 07/02/2021 11:35:00 AM EDT [facility]) Name Value Range Interpretation Code Description Data Malu rce(s) Supporting Document(s) Hemoglobin A1c/Hemoglobin.total in Blood 9.3 [facility] ([facility]) Glucose [Mass/volume] in Serum or Plasma 209 [facility] ([facility]) ID Date Data Source [id number] 05/02/2021 09:13:00 AM EDT [facility] ([facility]) Name Value Range Interpretation Code Description Data Malu rce(s) Supporting Document(s) Alt/SGPT 34 U/L 12-78 Normal (applies to non-numeric resul ts) [facility] ([facility]) Alkaline Phosphatase 100 U/L 45-117 Normal (applies to non-num thad results) [facility] ([facility]) Ast/Sgot 35 U/L 7-37 Normal (applies to non-numeric resul ts) [facility] ([facility]) Bilirubin,Direct 0.1 mg/dL 0.0-0.2 Normal (applies to non-numeric results) [facility] ([facility]) Bilirubin,Total 0.5 mg/dL 0.2-1.0 Normal (applies to non-numeric results) [facility] ([facility]) Total Protein 7.7 GM/DL 6.4-8.2 Normal (applies to non-numeric re sults) [facility] ([facility]) Albumin/Globulin Ratio 0.8 Normal (applies to non-n umeric results) [facility] ([facility]) Albumin 3.5 GM/DL 3.2-5.2 Normal (applies to non-numeric resul ts) [facility] ([facility]) ID Date Data Source [id number] 05/02/2021 09:13:00 AM EDT [facility]) Name Value Range Interpretation Code Description Data Malu rce(s) Supporting Document(s) Triglycerides Level 242 mg/dL Above high normal [facility] ([facility]) HDL Cholesterol 28 mg/dL Below low normal [facility] ([facility]) Cholesterol Level 119 mg/dL Normal (applies to non-numeri c results) [facility] ([facility]) Non-HDL-C 91 mg/dL Normal (applies to non-numeric resul ts) [facility] ([facility]) LDL Cholesterol 43 mg/dL Normal (applies to non-numeric results) [facility] ([facility]) Cholesterol Risk Ratio 4.250 Normal (applies to non-n umeric results) [facility] ([facility]) ID Date Data Source [id number] 05/02/2021 09:13:[address] [facility] ([facility]) Name Value Range Interpretation Code Description Data Malu rce(s) Supporting Document(s) PSA Total 3.9 ng/mL 0.0-4.0 Normal (applies to non-numeric resul ts) [facility] ([facility]) Mariya ECLIA methodology. . According to the [employer], Serum PSA should decrease and [...] the presence or absence of malignant disease. PSA Comment Laboratory test result Normal (applies to non- numeric results) [facility] ([facility]) . The percent free PSA is performed on a reflex basis only when the total PSA is between 4.0 and 10.0 ng/mL. Performed at: RN - [facility] [address] [id number] [employer]: Alessia Osuna MD, Phone: [phone] ID Date Data Source [id number] 05/02/2021 09:13:00 AM EDT [facility] ([facility]) Name Value Range Interpretation Code Description Data Malu rce(s) Supporting Document(s) Ast/Sgot 35 U/L 7-37 [facility] ([facility]) Alt/SGPT 34 U/L 12-78 [facility] ([facility] Bilirubin,Total 0.5 mg/dL 0.2-1.0 [facility] ([facility]) Alkaline Phosphatase 100 U/L 45-117 [facility] ([facility]) Total Protein 7.7 GM/DL 6.4-8.2 [facility] ([facility]) Bilirubin,Direct 0.1 mg/dL 0.0-0.2 [facility] ([facility]) Albumin 3.5 GM/DL 3.2-5.2 [facility] Albumin/Globulin Ratio 0.8 [facility] ([facility]) ID Date Data Source [id number] 05/02/2021 09:13:00 AM EDT [facility] ([facility]) Name Value Range Interpretation Code Description Data Malu rce(s) Supporting Document(s) Triglycerides Level 242 mg/dL [facility] ([facility]) HDL Cholesterol 28 mg/dL [facility] ([facility]) Cholesterol Level 119 mg/dL [facility] ([facility]) LDL Cholesterol 43 mg/dL [facility] ([facility]) Cholesterol Risk Ratio 4.250 [facility] ([facility]) Non-HDL-C 91 mg/dL [facility] ([facility] ID Date Data Source [id number] 04/03/2021 03:09:00 PM EDT [facility] ([facility]) Name Value Range Interpretation Code Description Data Malu rce(s) Supporting Document(s) Glucose [Mass/volume] in Serum or Plasma 305 [facility] ([facility]) Hemoglobin A1c/Hemoglobin.total in Blood Laboratory test result [facility] ([facility]) ID Date Data Source [id number] 03/28/2021 03:48:00 PM EDT [facility] ([facility]) Name Value Range Interpretation Code Description Data Malu rce(s) Supporting Document(s) Magnesium Level 1.54 [facility] ([facility]) ID Date Data Source [id number] 03/28/2021 03:48:00 PM EDT [facility] ([facility]) Name Value Range Interpretation Code Description Data Malu rce(s) Supporting Document(s) Calcium [Mass/volume] in Serum or Plasma 8.9 [facility] ([facility]) Sodium 136 [facility] Carbon dioxide, total [Moles/volume] in Serum or Plasma 27.1 [facility] ([facility]) Chloride [Moles/volume] in Serum or Plasma 104.7 [facility] ([facility]) Potassium [Moles/volume] in Serum or Plasma 4.21 [facility] ([facility]) Blood Urea Nitrogen 34.7 7-18 [facility] ([facility]) Glucose 184 70-106 [facility] ([facility] Glomerular filtration rate/1.73 sq M.pre dicted [Volume Rate/Area] in Serum or Plasma by Creatinine-based formula (MDRD) 40 [facility] ([facility]) Creatinine 1.7 0.55-1.3 [facility] ([facility]) ID Date Data Source [id number] 03/28/2021 03:48:00 PM EDT [facility] ([facility]i [facility]) Name Value Range Interpretation Code Description Data Malu rce(s) Supporting Document(s) White Blood Count 8.6 5.0-10.0 [facility] ([facility]) Hemoglobin 13.7 14.0-18.0 [facility] ([facility]) Red Blood Count 4.93 4.70-6.10 [facility] ([facility]) Platelets 226 172-450 [facility] Hematocrit 41.0 42.0-52.0 [facility] ([facility]) ID Date Data Source [id number] 12/24/2020 02:28:00 PM EDT [facility] ([facility]) Name Value Range Interpretation Code Description Data Malu rce(s) Supporting Document(s) Glucose [Mass/volume] in Serum or Plasma 389 [facility] ([facility]) Hemoglobin A1c/Hemoglobin.total in Blood 9.9 [facility] ([facility]) ID Date Data Source [id number] 09/24/2020 01:43:00 PM EST [facility] ([facility]) Name Value Range Interpretation Code Description Data Malu rce(s) Supporting Document(s) Hemoglobin A1c/Hemoglobin.total in Blood Laboratory test result [facility] ([facility]) Glucose [Mass/volume] in Serum or Plasma 341 [facility] ([facility]) ID Date Data Source [id number] 09/24/2020 01:23:00 PM EST [facility] ([facility]) Name Value Range Interpretation Code Description Data Malu rce(s) Supporting Document(s) Glucose [Mass/volume] in Serum or Plasma 341 [facility] ([facility]) ID Date Data Source [id number] 08/29/2020 09:24:00 AM EST [facility] Name Value Range Interpretation Code Description Data Malu rce(s) Supporting Document(s) Alanine aminotransferase [Enzymatic activity/volume] in Serum or Pl asma 42 [facility] ([facility]) Calcium [Mass/volume] in Serum or Plasma 9.1 [facility] ([facility]) Albumin [Mass/volume] in Serum or Plasma 3.6 [facility] ([facility]) Alkaline phosphatase [Enzymatic activity/volume] in Serum or Plasma 1 21 [facility] ([facility]) Carbon dioxide, total [Moles/volume] in Serum or Plasma 26 [facility] ([facility]) Chloride [Moles/volume] in Serum or Plasma 105 [facility] ([facility]) Potassium [Moles/volume] in Serum or Plasma 4.6 [facility] ([facility]) Sodium 137 [facility] ([facility]) Protein [Mass/volume] in Serum or Plasma 7.8 [facility] ([facility]) Glucose 191 70-100 [facility] ([facility]) Aspartate aminotransferase [Enzymatic activity/volume] in Serum or Plasma 37 [facility] ([facility]) Urea nitrogen [Mass/volume] in Serum or Plasma 23 [facility] ([facility]) Creatinine For GFR 1.60 [facility] ([facility]) ID Date Data Source [id number] 08/29/2020 09:24:00 AM EST [facility] ([facility]) Name Value Range Interpretation Code Description Data Malu rce(s) Supporting Document(s) Hemoglobin A1c/Hemoglobin.total in Blood 10.2 [facility] ([facility]) ID Date Data Source [id number] 08/29/2020 09:24:00 AM EST [facility] ([facility]) Name Value Range Interpretation Code Description Data Malu rce(s) Supporting Document(s) Red Blood Count 5.15 4.30-6.10 [facility] ([facility]) White Blood Count 8.4 4.0-10.0 [facility] ([facility]) Hemoglobin 14.2 [facility] ([facility]) Platelets 155 150-450 [facility] ([facility]) Hematocrit 43.7 [facility] ([facility]) ID Date Data Source [id number] 08/29/2020 09:06:00 AM EST [facility] ([facility]) Name Value Range Interpretation Code Description Data Malu rce(s) Supporting Document(s) Malb Urine Siemens 152.0 mg/L Normal (applies to non-numer ic results) [facility] ([facility] Amadou/Creat Ratio 53.7 MCG/MG 0.0-30.0 Above high normal [facility] ([facility]) THE [employer] STATES THAT MICROALBUMINURIA IS PRESENT IF THE MICROALBUMIN/CREATININE RATIO EXCEEDS 30 MCG/MG. THE THRESHOLD FOR CLINICAL ALBUMINURIA IS REACHED AT 300 MCG/MG. THE CLASSIFICATION OF A PATIENT SHOULD BE BASED UPON AT LEAST 2 OF 3 ABNORMAL RESULTS ON SPECIMENS COLLECTED WITHIN A 3 TO 6 MONTH TIME FRAME. Creatinine, Urine 283.0 mg/dL Normal (applies to non-numer ic results) [facility] ([facility]) ID Date Data Source [id number] 08/28/2020 10:55:[address] [facility] ([facility]) Name Value Range Interpretation Code Description Data Malu rce(s) Supporting Document(s) White Blood Count 8.4 10 4.0-10.0 Normal (applies to non-numeri c results) [facility] ([facility]) Hematocrit 43.7 % 42.0-52.0 Normal (applies to non-numeric resul ts) [facility] ([facility]) Red Blood Count 5.15 10 4.30-6.10 Normal (applies to non-numeric results) [facility] ([facility]) Hemoglobin 14.2 g/dL 13.5-17.5 Normal (applies to non-numeric resul ts) [facility] ([facility]) Mean Corpuscular Hemoglobin 27.6 pg 27.0-33.0 Norm al (applies to non-numeric results) [facility] ([facility]) Mean Corpuscular Volume 84.9 fl 80.0-96.0 Normal ( applies to non-numeric results) [facility] ([facility]) Red Cell Distribution Width 14.5 % 11.5-14.5 Norm al (applies to non-numeric results) [facility] ([facility]) Platelet Count, Automated 155 10 150-450 Normal (applies to non-numeric results) [facility] ([facility]) Mean Corpuscular HGB Conc 32.5 g/dL 32.0-36.5 Normal (applies to non-numeric results) [facility] ([facility]) Lymph % 20.7 % 24.0-44.0 Below low normal [facility] ( [facility] Neutrophils % 69.4 % 36.0-66.0 Above high normal [facility] ([facility] [place] % 6.7 % 0.0-5.0 Above high normal [facility] ([facility]) Baso % 1.3 % 0.0-1.0 Above high normal [facility] ([facility]) Eos % 1.2 % 0.0-3.0 Normal (applies to non-numeric resul ts) [facility] ([facility] Nucleated Red Blood Cell % 0.0 % 0-0 Normal (applies to n on-numeric results) [facility] ([facility]) Immature Granulocyte % 0.7 % 0-3.0 Normal (applies to non-n umeric results) [facility] ([facility] Neutrophils # 5.8 10 1.5-8.5 Normal (applies to non-numeric re sults) [facility] ([facility] [place] # 0.6 10 0.0-0.8 Normal (applies to non-numeric resul ts) [facility] ([facility] Lymph # 1.7 10 1.5-5.0 Normal (applies to non-numeric resul ts) [facility] ([facility] Eos # 0.1 10 0.0-0.5 Normal (applies to non-numeric resul ts) [facility] ([facility] Baso # 0.1 10 0.0-0.2 Normal (applies to non-numeric resul ts) [facility] ([facility]) ID Date Data Source [id number] 08/28/2020 10:55:00 AM EST [facility] ([facility]) Name Value Range Interpretation Code Description Data Malu rce(s) Supporting Document(s) Glucose, Fasting 191 mg/dL 70-100 Above high normal [facility] ([facility]) Creatinine For GFR 1.60 mg/dL 0.70-1.30 Above high normal [facility] ([facility]) Blood Urea Nitrogen 23 mg/dL 7-18 Above high normal [facility] ([facility]) Sodium Level 137 meq/L 136-145 Normal (applies to non-numeric res ults) [facility] ([facility]) Glomerular Filtration Rate 46.3 Below low normal [facility] ([facility]) <content>Units are mL/min/1.73 m2</content>
<content></content>
<content>Chronic Kidney Disease Staging per NKF:</content>
<content></content>
<content>Stage I & II GFR >=60 Normal to Mildly Decreased</content>
<content>Stage III GFR 30- 59 Moderately Decreased</content>
<content>Stage IV GFR 15-29 Severely Decreased</content>
<content>Stage V GFR <15 Very Little GFR Left</content>
<content>ESRD GFR <15 on SUPPLY MANAGER</content>
<content></content> Potassium Serum 4.6 meq/L 3.5-5.1 Normal (applies to non-numeric results) [facility] ([facility]) Chloride Level 105 meq/L 98-107 Normal (applies to non-numeric r esults) [facility] ([facility] Carbon Dioxide Level 26 meq/L 21-32 Normal (applies to non-num thad results) [facility] ([facility]) Ast/Sgot 37 U/L 7-37 Normal (applies to non-numeric resul ts) [facility] ([facility] Anion Gap 6 meq/L 8-16 Below low [facility] Calcium Level 9.1 mg/dL 8.8-10.2 Normal (applies to non-numeric re sults) [facility] ([facility] Alt/SGPT 42 U/L 12-78 Normal (applies to non-numeric resul ts) [facility] ([facility] Alkaline Phosphatase 121 U/L 45-117 Above high [facility] Bilirubin,Total 0.8 mg/dL 0.2-1.0 Normal (applies to non-numeric results) [facility] ([facility]) Albumin 3.6 GM/DL 3.2-5.2 Normal (applies to non-numeric resul ts) [facility] ([facility] Total Protein 7.8 GM/DL 6.4-8.2 Normal (applies to non-numeric re sults) [facility] ([facility]) Albumin/Globulin Ratio 0.9 Normal (applies to non-n umeric results) [facility] ([facility]) ID Date Data Source [id number] 08/28/2020 10:55:00 AM EST [facility] ([facility]) Name Value Range Interpretation Code Description Data Malu rce(s) Supporting Document(s) Hemoglobin A1c 10.2 % Normal (applies to non-numeric r esults) [facility] ([facility]) <content>REFERENCE RANGES:</content><br/ ><content></content>
<content><=5.6% NORMAL</content>
<content>5.7-6.4% SUGGESTS IMPAIRED GLUCOSE METABOLISM/PREDIABETIC</content>
<content>>= 6.5% ABNORMAL</content>
<content></content> Estimated Average Glucose 246 mg/dL 60-110 Above high normal [facility] ([facility] ID Date Data Source [id number] 07/04/2020 04:09:00 PM EDT [facility] ([facility]) Name Value Range Interpretation Code Description Data Malu rce(s) Supporting Document(s) Hemoglobin A1c/Hemoglobin.total in Blood 9.0 [facility] ([facility]) Glucose [Mass/volume] in Serum or Plasma 214 [facility] ([facility]) Procedure Social History Code Duration Value Status Description Data Source(s ) Smoking 08/01/2021 12:00:00 AM EDT Patient has never smoked co mpleted Patient has never smoked [facility] ([facility] Smoking 07/15/2021 12:00:00 AM EDT Patient has never smoked co mpleted Patient has never smoked [facility] ([facility]) Smoking 07/02/2021 12:00:00 AM EDT Never Smoked Cigarettes com pleted Never Smoked Cigarettes [facility] ([facility]) Smoking 04/28/2021 12:00:00 AM EDT Patient has never smoked co mpleted Patient has never smoked MEDENT ([facility]) Vital Signs ID Date Data Source UNK Name Value Range Interpretation Code Description Data Source(s) Systolic blood pressure 124 mm[Hg] 124 mm[Hg] M EDENT ([facility] Diastolic blood pressure 72 mm[Hg] 72 mm[Hg] MEDENT ([facility]) Body height 65.8 [in_i] 65.8 [in_i] MEDENT ([facility]) 5'5.80" Body weight 246.00 [lb_av] 246.00 [lb_av] MEDEN T ([facility]) Body mass index (BMI) [Ratio] 39.9 kg/m2 39.9 k g/m2 MEDENT ([facility]) Heart rate 78 /min 78 /min MEDENT ([facility]) Respiratory rate 14 /min 14 /min MEDENT ( [facility] Body temperature 97.2 [degF] 97.2 [degF] MEDENT ([facility]) Oxygen saturation in Arterial blood by Pulse oximetry 97 % 97 % MEDENT ([facility]) [place] body weight 136 [lb_av] 136 [lb_av] MEDEN T ([facility]) Systolic blood pressure 134 mm[Hg] 134 mm[Hg] M EDENT ([facility]) Diastolic blood pressure 92 mm[Hg] 92 mm[Hg] MEDENT ([facility]) Heart rate 97 /min 97 /min MEDENT ([facility]) Respiratory rate 20 /min 20 /min MEDENT ( [facility]) Oxygen saturation in Arterial blood by Pulse oximetry 95 % 95 % MEDENT ([facility]) Body temperature 98.2 [degF] 98.2 [degF] MEDENT ([facility]) Body weight 248.00 [lb_av] 248.00 [lb_av] MEDEN T ([facility]) Systolic blood pressure 126 mm[Hg] 126 mm[Hg] M EDENT ([facility]) Diastolic blood pressure 80 mm[Hg] 80 mm[Hg] MEDENT ([facility]) Heart rate 58 /min 58 /min MEDENT ([facility]) Body height 66.5 [in_i] 66.5 [in_i] MEDENT ([facility]) 5'6.50" Body weight 249.25 [lb_av] 249.25 [lb_av] MEDEN T ([facility] ) Body mass index (BMI) [Ratio] 39.6 kg/m2 39.6 k g/m2 MEDENT ([facility] ) Oxygen saturation in Arterial blood by Pulse oximetry 97 % 97 % MEDENT ([facility] ) Respiratory rate 16 /min 16 /min MEDENT ( [facility]) Body weight 242.00 [lb_av] 242.00 [lb_av] MEDEN T ([facility]) Body height 65 [in_i] 65 [in_i] MEDENT ([facility] 5'5" Body mass index (BMI) [Ratio] 40.3 kg/m2 40.3 k g/m2 MEDENT ([facility]) Heart rate 72 /min 72 /min MED[facility] ([facility]) Regular Systolic blood pressure 134 mm[Hg] 134 mm[Hg] M EDENT ([facility]) sitting, large cuff Diastolic blood pressure 80 mm[Hg] 80 mm[Hg] MEDENT ([facility]) sitting, large cuff Systolic blood pressure 134 mm[Hg] 134 mm[Hg] M EDENT ([facility]) sitting Diastolic blood pressure 76 mm[Hg] 76 mm[Hg] MEDENT ([facility]) sitting Body height 66.5 [in_i] 66.5 [in_i] MEDENT ([facility]) 5'6.50" Body weight 247.38 [lb_av] 247.38 [lb_av] MEDEN T ([facility] ) Body mass index (BMI) [Ratio] 39.3 kg/m2 39.3 k g/m2 MEDENT ([facility] ) Systolic blood pressure 132 mm[Hg] 132 mm[Hg] M EDENT ([facility]) Diastolic blood pressure 76 mm[Hg] 76 mm[Hg] MEDENT ([facility] ) Heart rate 87 /min 87 /min MEDENT ([facility] ) Body temperature 97.5 [degF] 97.5 [degF] MEDENT ([facility]) Systolic blood pressure 128 mm[Hg] 128 mm[Hg] M EDENT ([facility]) Diastolic blood pressure 78 mm[Hg] 78 mm[Hg] MEDENT ([facility]) Body height 65.8 [in_i] 65.8 [in_i] MEDENT ([facility]) 5'5.80" Body weight 249.12 [lb_av] 249.12 [lb_av] MEDEN T ([facility] Body mass index (BMI) [Ratio] 40.5 kg/m2 40.5 k g/m2 MEDENT ([facility]) Heart rate 95 /min 95 /min MEDENT ([facility]) Respiratory rate 18 /min 18 /min MEDENT ( [facility] Body temperature 96.8 [degF] 96.8 [degF] MEDENT ([facility]) Oxygen saturation in Arterial blood by Pulse oximetry 96 % 96 % MEDENT ([facility] [place] body weight 136 [lb_av] 136 [lb_av] MEDEN T ([facility]) Systolic blood pressure 110 mm[Hg] 110 mm[Hg] M EDENT ([facility]) Body temperature 96.9 [degF] 96.9 [degF] MEDENT ([facility]) Oxygen saturation in Arterial blood by Pulse oximetry 95 % 95 % MEDENT ([facility]) Diastolic blood pressure 76 mm[Hg] 76 mm[Hg] MEDENT ([facility]) Heart rate 85 /min 85 /min MEDENT ([facility]) Body height 66.5 [in_i] 66.5 [in_i] MEDENT ([facility]) 5'6.50" Body weight 247.38 [lb_av] 247.38 [lb_av] MEDEN T ([facility]) Body mass index (BMI) [Ratio] 39.3 kg/m2 39.3 k g/m2 MEDENT ([facility]) Systolic blood pressure 138 mm[Hg] 138 mm[Hg] M EDENT ([facility]) Diastolic blood pressure 84 mm[Hg] 84 mm[Hg] MEDENT ([facility]) Body height 65.8 [in_i] 65.8 [in_i] MEDENT ([facility]) 5'5.80" Heart rate 78 /min 78 /min MEDENT ([facility]) Oxygen saturation in Arterial blood by Pulse oximetry 96 % 96 % MEDENT ([facility] Body weight 248.00 [lb_av] 248.00 [lb_av] MEDEN T ([facility]) Body mass index (BMI) [Ratio] 40.3 kg/m2 40.3 k g/m2 MEDENT ([facility]) Respiratory rate 20 /min 20 /min MEDENT ( [facility] Body temperature 97.9 [degF] 97.9 [degF] MEDENT ([facility] [place] body weight 136 [lb_av] 136 [lb_av] MEDEN T ([facility]) Systolic blood pressure 122 mm[Hg] 122 mm[Hg] M EDENT ([facility] ) Diastolic blood pressure 76 mm[Hg] 76 mm[Hg] MEDENT ([facility] ) Heart rate 77 /min 77 /min MEDENT ([facility] ) Body temperature 97.3 [degF] 97.3 [degF] MEDENT ([facility] ) Body height 66.5 [in_i] 66.5 [in_i] MEDENT ([facility] 5'6.50" Body weight 250.50 [lb_av] 250.50 [lb_av] MEDEN T ([facility] ) Body mass index (BMI) [Ratio] 39.8 kg/m2 39.8 k g/m2 MEDENT ([facility] ) Oxygen saturation in Arterial blood by Pulse oximetry 98 % 98 % MEDENT ([facility] ) Body weight 245.00 [lb_av] 245.00 [lb_av] MEDEN T ([facility] ) Body mass index (BMI) [Ratio] 39.5 kg/m2 39.5 k g/m2 MEDENT ([facility] ) Body temperature 97.3 [degF] 97.3 [degF] MEDENT ([facility] ) Body height 66 [in_i] 66 [in_i] MEDENT ([facility] ) 5'6" [place] body weight 136 [lb_av] 136 [lb_av] MEDEN T ([facility]) Systolic blood pressure 164 mm[Hg] 164 mm[Hg] M EDENT ([facility]) Diastolic blood pressure 90 mm[Hg] 90 mm[Hg] MEDENT ([facility]) Body height 65.8 [in_i] 65.8 [in_i] MEDENT ([facility]) 5'5.80" Body weight 249.00 [lb_av] 249.00 [lb_av] MEDEN T ([facility]) Body mass index (BMI) [Ratio] 40.4 kg/m2 40.4 k g/m2 MEDENT ([facility]) Heart rate 94 /min 94 /min MEDENT ([facility]) Respiratory rate 22 /min 22 /min MEDENT ( [facility] Body temperature 97.8 [degF] 97.8 [degF] MEDENT ([facility]) Oxygen saturation in Arterial blood by Pulse oximetry 97 % 97 % MEDENT ([facility] Body weight 245.00 [lb_av] 245.00 [lb_av] MEDEN T ([facility]) Body height 65 [in_i] 65 [in_i] MEDENT ([facility]) 5'5" Body mass index (BMI) [Ratio] 40.8 kg/m2 40.8 k g/m2 MEDENT ([facility]) Heart rate 76 /min 76 /min MED[facility] ([facility] Regular Respiratory rate 16 /min 16 /min MEDENT ( [facility]) Systolic blood pressure 126 mm[Hg] 126 mm[Hg] M EDENT ([facility]) sitting, large cuff Diastolic blood pressure 68 mm[Hg] 68 mm[Hg] MEDENT ([facility]) sitting, large cuff Systolic blood pressure 126 mm[Hg] 126 mm[Hg] M EDENT ([facility]) sitting Diastolic blood pressure 66 mm[Hg] 66 mm[Hg] MEDENT ([facility]) sitting Body temperature 97.4 [degF] 97.4 [degF] MEDENT ([facility]) Oxygen saturation in Arterial blood by Pulse oximetry 99 % 99 % MEDENT ([facility] [place] body weight 136 [lb_av] 136 [lb_av] MEDEN T ([facility] Heart rate 78 /min 78 /min MEDENT ([facility]) Respiratory rate 18 /min 18 /min MEDENT ( [facility] Systolic blood pressure 138 mm[Hg] 138 mm[Hg] M EDENT ([facility]) Diastolic blood pressure 82 mm[Hg] 82 mm[Hg] MEDENT ([facility]) Body height 65.8 [in_i] 65.8 [in_i] MEDENT ([facility]) 5'5.80" Body weight 245.00 [lb_av] 245.00 [lb_av] MEDEN T ([facility]) Body mass index (BMI) [Ratio] 39.8 kg/m2 39.8 k g/m2 MEDENT ([facility]) Body temperature 97.0 [degF] 97.0 [degF] MEDENT ([facility]) Body height 66.5 [in_i] 66.5 [in_i] MEDENT ([facility]) 5'6.50" Body weight 250.00 [lb_av] 250.00 [lb_av] MEDEN T ([facility]) Systolic blood pressure 128 mm[Hg] 128 mm[Hg] M EDENT ([facility]) Diastolic blood pressure 78 mm[Hg] 78 mm[Hg] MEDENT ([facility]) Heart rate 106 /min 106 /min MEDENT ([facility]) Body mass index (BMI) [Ratio] 39.7 kg/m2 39.7 k g/m2 MEDENT ([facility]) Oxygen saturation in Arterial blood by Pulse oximetry 96 % 96 % MEDENT ([facility]) Heart rate 68 /min 68 /min MEDENT ([facility]) Body height 66.5 [in_i] 66.5 [in_i] MEDENT ([facility]) 5'6.50" Body weight 245.12 [lb_av] 245.12 [lb_av] MEDEN T ([facility]) Systolic blood pressure 122 mm[Hg] 122 mm[Hg] M EDENT ([facility]) Diastolic blood pressure 70 mm[Hg] 70 mm[Hg] MEDENT ([facility]) Body mass index (BMI) [Ratio] 39.0 kg/m2 39.0 k g/m2 MEDENT ([facility]) Oxygen saturation in Arterial blood by Pulse oximetry 96 % 96 % TIAGOENT ([facility]) Body mass index (BMI) [Ratio] 39.6 kg/m2 39.6 k g/m2 MEDENT ([facility] Heart rate 96 /min 96 /min MEDENT ([facility]) Respiratory rate 18 /min 18 /[facility] Body temperature 97.0 [degF] 97.0 [degF] [place]OD[place] ([facility]) Oxygen saturation in Arterial blood by Pulse oximetry 97 % 97 % [place] ([facility] [place] body weight 136 [lb_av] 136 [lb_av] ROSELIA [place] ([facility]) Systolic blood pressure 132 mm[Hg] 132 mm[Hg] M KENJI ([facility] Diastolic blood pressure 74 mm[Hg] 74 mm[Hg] [place]ERICK ([facility]) Body height 65.8 [in_i] 65.8 [in_i] [place]ICK ([facility]) 5'5.80" Body weight 244.00 [lb_av] 244.00 [lb_av] ROSELIA [place] ([facility])
[2021-08-12] MEDS ORDERED: ALBU8.5H (09:34)
[2021-08-12] MEDS ORDERED: NOVOINJ3 (09:34)
[2021-08-12] MEDS ORDERED: TRES1INJ (09:34)
[2021-08-12 10:15] LABS: BASO % 0.6 % (0.0-1.0); EOS % 0.1 % (0.0-3.0); HEMATOCRIT 44.7 % (42.0-52.0); HEMOGLOBIN 14.3 g/dl (13.5-17.5); LYMPH # 0.7 10^3/uL (1.5-5.0); LYMPH % 10.8 % (24.0-44.0); MEAN CORPUSCULAR HEMOGLOBIN 26.5 pg (27.0-33.0); MEAN CORPUSCULAR VOLUME 82.9 fl (80.0-96.0); MONO # 0.6 10^3/uL (0.0-0.8); MONO % 9.1 % (2.0-8.0); NEUTROPHILS # 5.3 10^3/uL (1.5-8.5); NEUTROPHILS % 78.7 % (36.0-66.0); PLATELET COUNT, AUTOMATED 178 10^3/uL (150-450); RED BLOOD COUNT 5.39 10^6/uL (4.30-6.10); WHITE BLOOD COUNT 6.8 10^3/uL (4.0-10.0)
--- OUTSIDE RECORDS SUMMARY | 2021-08-12 10:35 | CCD ---
Author Author [facility] Organization [facility] Address Unknown Phone Unavailable Care Team Providers Care Rn [facility] Name Role Phone YoungenowArgentina PA Unavailable Unavailable [...] Jo PA Unavailable Unavailable VERONICA, B SHAYAN MANAGER INTERVENTIONAL Unavailable Unavailable VERONICA, B SHAYAN MANAGER INTERVENTIONAL Unavailable Unavailable VERONICA, B SHAYAN MANAGER INTERVENTIONAL Unavailable Unavailable VERONICA, B SHAYAN MANAGER INTERVENTIONAL Unavailable Unavailable VERONICA, B SHAYAN MANAGER INTERVENTIONAL Unavailable Unavailable VERONICA, B SHAYAN MANAGER INTERVENTIONAL Unavailable Unavailable VERONICA, B SHAYAN MANAGER INTERVENTIONAL Unavailable Unavailable VERONICA, B SHAYAN MANAGER INTERVENTIONAL Unavailable Unavailable VERONICA, B SHAYAN MANAGER INTERVENTIONAL Unavailable Unavailable VERONICA, B SHAYAN MANAGER INTERVENTIONAL Unavailable Unavailable VERONICA, B SHAYAN MANAGER INTERVENTIONAL Unavailable Unavailable VERONICA, B SHAYAN MANAGER INTERVENTIONAL Unavailable Unavailable VERONICA, B SHAYAN MANAGER INTERVENTIONAL Unavailable Unavailable VERONICA, B SHAYAN MANAGER INTERVENTIONAL Unavailable Unavailable VERONICA, B SHAYAN MANAGER INTERVENTIONAL Unavailable Unavailable VERONICA, B SHAYAN MANAGER INTERVENTIONAL Unavailable Unavailable VERONICA, B SHAYAN MANAGER INTERVENTIONAL Unavailable Unavailable VERONICA, B SHAYAN MANAGER INTERVENTIONAL Unavailable Unavailable VERONICA, B SHAYAN MANAGER INTERVENTIONAL Unavailable Unavailable VERONICA, B SHAYAN MANAGER INTERVENTIONAL Unavailable Unavailable VERONICA, B SHAYAN MANAGER INTERVENTIONAL Unavailable Unavailable VERONICA, B SHAYAN MANAGER INTERVENTIONAL Unavailable Unavailable VERONICA, B SHAYAN MANAGER INTERVENTIONAL Unavailable Unavailable VERONICA, B SHAYAN MANAGER INTERVENTIONAL Unavailable Unavailable VERONICA, B SHAYAN MANAGER INTERVENTIONAL Unavailable Unavailable VERONICA, B SHAAYN MANAGER INTERVENTIONAL Unavailable Unavailable VERONICA, B SHAYAN MANAGER INTERVENTIONAL Unavailable Unavailable VERONICA, B SHAYAN MANAGER INTERVENTIONAL Unavailable Unavailable VERONICA, B SHAYAN MANAGER INTERVENTIONAL Unavailable Unavailable VERONICA, B SHAYAN MANAGER INTERVENTIONAL Unavailable Unavailable VERONICA, B SHAYAN MANAGER INTERVENTIONAL Unavailable Unavailable VERONICA, B SHAYAN MANAGER INTERVENTIONAL Unavailable Unavailable VERONICA, B SHAYAN MANAGER INTERVENTIONAL Unavailable Unavailable VERONICA, B SHAYAN MANAGER INTERVENTIONAL Unavailable Unavailable VERONICA, B SHAYAN MANAGER INTERVENTIONAL Unavailable Unavailable VERONICA, B SHAYAN MANAGER INTERVENTIONAL Unavailable Unavailable VERONICA, B SHAYAN MANAGER INTERVENTIONAL Unavailable Unavailable VERONICA, B SHAYAN MANAGER INTERVENTIONAL Unavailable Unavailable VERONICA, B SHAYAN MANAGER INTERVENTIONAL Unavailable Unavailable VERONICA, B SHAYAN MANAGER INTERVENTIONAL Unavailable Unavailable VERONICA, B SHAYAN MANAGER INTERVENTIONAL Unavailable Unavailable VERONICA, B SHAYAN MANAGER INTERVENTIONAL Unavailable Unavailable VERONICA, B SHAYAN MANAGER INTERVENTIONAL Unavailable Unavailable VERONICA, B SHAYAN MANAGER INTERVENTIONAL Unavailable Unavailable VERONICA, B SHAYAN MANAGER INTERVENTIONAL Unavailable Unavailable VERONICA, B SHAYAN MANAGER INTERVENTIONAL Unavailable Unavailable VERONICA, B SHAYAN MANAGER INTERVENTIONAL Unavailable Unavailable VERONICA, B SHAYAN MANAGER INTERVENTIONAL Unavailable Unavailable VERONICA, B SHAYAN MANAGER INTERVENTIONAL Unavailable Unavailable VERONICA, B SHAYAN MANAGER INTERVENTIONAL Unavailable Unavailable VERONICA, B SHAYAN MANAGER INTERVENTIONAL Unavailable Unavailable VERONICA, B SHAYAN MANAGER INTERVENTIONAL Unavailable Unavailable VERONICA, B SHAYAN MANAGER INTERVENTIONAL Unavailable Unavailable VERONICA, B SHAYAN MANAGER INTERVENTIONAL Unavailable Unavailable VERONICA, B SHAYAN MANAGER INTERVENTIONAL Unavailable Unavailable VERONICA, B SHAYAN MANAGER INTERVENTIONAL Unavailable Unavailable VERONICA, B SHAYAN MANAGER INTERVENTIONAL Unavailable Unavailable VERONICA, B SHAYAN MANAGER INTERVENTIONAL Unavailable Unavailable VERONICA, B SHAYAN MANAGER INTERVENTIONAL Unavailable Unavailable VERONICA, B SHAYAN MANAGER INTERVENTIONAL Unavailable Unavailable VERONICA, B SHAYAN MANAGER INTERVENTIONAL Unavailable Unavailable VERONICA, B SHAYAN MANAGER INTERVENTIONAL Unavailable Unavailable BUDDY-MILO, RIZWANA DO Unavailable Unavailable BUDDY-MILO, RIZWANA DO Unavailable Unavailable BUDDY-MILO, RIZWANA DO Unavailable Unavailable BUDDY-MILO, RIZWANA DO Unavailable Unavailable BUDDY-MILO, RIZWANA DO Unavailable Unavailable BUDDY-MILO, RIZWANA DO Unavailable Unavailable BUDDY-MILO, RIZWANA DO Unavailable Unavailable BUDDY-MILO, RIZWANA DO Unavailable Unavailable BUDDY-MILO, RIZWANA DO Unavailable Unavailable BUDYD-MILO, RIZWANA DO Unavailable Unavailable BUDDY-MILO, RIZWANA DO [...] Unavailable Unavailable BUDDY-MILO, RIZWANA DO Unavailable Unavailable BUDDY-IMLO, RIZWANA DO Unavailable Unavailable BUDDY-MILO, RIZWANA DO [...] Unavailable ETHAN, M ROBERTA PA Unavailable Unavailable TEHAN, M ROBERTA PA Unavailable Unavailable ETHAN, M [...] is protected by Article 27-F of the [facility] Public Health law. If you continue you may have access to information: Regarding HIV / AIDS; Provided by facilities licensed or operated by the [facility] Office of Mental Health; or Provided by the [facility] Office for People With Developmental Disabilities. If such information is present, then the following [facility] mandated warning applies: This information has been [...] law may result in a fine or [place] health [place] facility sentence or both. A general authorization for [...] Male Problem [facility] ([facility]) Encounters Encounter Providers Location Date Indications Data Source(s ) Outpatient Attender: RIZWANA SORENSEN DO Family Medicine [facility] 08/01/2021 09:30:00 AM EDT [facility] ([facility]) Outpatient Attender: America Barnett Prim aki 07/15/2021 04:35:00 PM EDT [facility] ([facility] Outpatient Attender: SHAYAN MARTIN NP Physical Therapy 11:30:00 AM EDT [facility] ([facility]) Outpatient Attender: Jo SHABAZZ Main Office 04/28/2021 09:45:00 AM EDT [facility] ([facility]) Outpatient Attender: SHAYAN MARTIN NP Physical Therapy 02:45:00 PM EDT [facility] ([facility]) Outpatient Attender: Gianfranco SHABAZZ Family Medicine [facility] 04/01/2021 10:00:00 AM EDT [facility] ([facility]) Outpatient Attender: SHAYAN MARTIN NP Physical Therapy 03:15:00 PM EDT [facility] ([facility]) Outpatient Attender: RIZWANA SORENSEN DO [facility] 12/26/2020 09:00:00 AM EDT [facility] ([facility]) Outpatient Attender: SHAYAN MARTIN NP Physical Therapy 02:15:00 PM EDT [facility] ([facility]) OFFICE OUTPATIENT NEW 30 MINUTES Attender: ROBERTA SHABAZZ Phys ical Therapy 11/14/2020 05:30:00 PM EST [facility] ([facility]) Outpatient Attender: Gianfranco SHABAZZ Family Medicine [facility] 11/06/2020 08:40:00 AM EST [facility] ([facility]) Office Visit Attender: Gianfranco SHABAZZ [facility] 09/25/2020 08:00:00 AM EST [facility] ([facility]) Outpatient Attender: SHAYAN MARTIN NP Physical Therapy 12:15:00 PM EST [facility] ([facility]) Outpatient Attender: SHAYAN MARTIN MANAGER INTERVENTIONAL Physical Therapy 01:15:00 PM EDT [facility] ([facility]) Outpatient Attender: Gianfranco SHABAZZ [facility] 06/26/2020 09:00:00 AM EDT [facility] ([facility]) Immunizations Vaccine Date Status Description Data Source(s) COVID-19 VACCINE Pfizer 06/18/2021 12:00:00 AM EDT completed [employer] Vaccine Series Complete: NOThis Data was Submitted to [facility]. COVID-19 VACC, MRNA(PFIZER)/PF 06/18/2021 12:00:00 AM EDT completed [facility] Medications Medication Brand Name Start Date Product Form Dose Route Admi nistrative Instructions Pharmacy Instructions Status Indications Reaction Description Data Source(s) Erythromycin 0.005 MG/MG Ophthalmic Ointment Erythromycin 07/15/2021 12:00:00 AM EDT active [facility] ([facility]) 90 mcg/actuation 07/15/2021 12:00:00 AM EDT HFA aerosol inha ler 8 INHALE 1-2 PUFFS 3-4 TIMES PER DAY FOR FOR SHORTNESS OF BREATH WHEEZING INHALE 1-2 PUFFS 3- 4 TIMES PER DAY FOR FOR SHORTNESS OF BREATH WHEEZING SOLD: 07/15/2021 [facility] 60 ACTUAT Albuterol 0.09 MG/ACTUAT Metered Dose Inhaler Albu terol Sulfate HFA 07/15/2021 12:00:00 AM EDT RESPIRATORY active [facility] ([facility]) 5 mg/gram (0.5 %) 07/15/2021 12:00:00 AM EDT ointment 3 APPLY SMALL AMOUNT IN THE LEFT EYE FOUR TIMES A DAY FOR 7 DAYS APPLY SMALL AMOUNT IN THE LEFT EYE FOUR TIMES A DAY FOR 7 DAYS SOLD: 07/15/2021 [facility] Magnesium 04/28/2021 12:00:00 AM EDT ORAL active [facility] ([facility]) Tresiba Flextouch Tresiba Flextouch 12/24/2020 12:00:00 AM EDT active [facility] ([facility] 3 ML Insulin, Aspart Protamine, Human 70 UNT/ML / Insulin, Aspart, Human 30 UNT/ML Pen Injector [NovoLog Mix] Novolog Mix 70/30 Prefilled Flexpen 10/27/2020 12:00:00 AM EST active M EDENT ([facility]) 3 ML insulin detemir 100 UNT/ML Pen Injector [Levemir] Levem ir Flextouch 09/25/2020 12:00:00 AM EST SUBCUTANEOUS completed [facility] ([facility]) Insulin, Aspart, Human 100 UNT/ML Injectable Solution [NovoL og] Novolog 09/25/2020 12:00:00 AM EST SUBCUTANEOUS active [facility] ([facility]) Insurance Providers Payer name Policy type / Coverage type Policy ID Covered republican ID Covered republican's relationship to martinez Policy Martinez Plan Information Blue Ppo Medigap Part B [id number] Family Dependent [id number] Blue Ppo Medigap Part B [id number] Family Dependent [id number] Blue Ppo Medigap Part B [id number] Family Dependent [id number] Blue Ppo Medigap Part B [id number] Family Dependent [id number] Blue Ppo Medigap Part B [id number] Family Dependent Blue Ppo Medigap Part B [id number] Family Dependent [id number] Blue Ppo Medigap Part B [id number] Family Dependent [id number] BC/BS [place] [employer] [id number] Family Dependent BCBS [employer] [id number] Family Dependent BCBS [employer] [id number] [id number] [id number] Family Dependent [id number] BCBS [employer] [id number] Family Dependent V [id number] BCBS [employer] [id number] [id number] [id number] Family Dependent [id number] BC/BS [place] [employer] [id number] Family Dependent BCBS [employer] [id number] [id number] [id number] Family Dependent [id number] BCBS [employer] [id number] 2..1.113 [id number] Family Dependent [id number] BCBS [employer] [id number] Family Dependent V [id number] Blue Cross Blue Shield P [id number] SELF [id number] [place]BS [place] PPO 302/307 [id number] [place] [id number] [place] 306/806 [id number] SP [id number] [place] 306/806 [id number] SP [id number] [place] 306/806 [id number] [place]2 [id number] WELLCARE [id number] SP [id number] WELLCARE O [id number] S [id number] [employer] [id number] Family Dependent [id number] BS [place] [employer] [id number] Family Dependent [id number] BS [place] [employer] [id number] Family Dependent [id number] [facility] U[employer] Commercial [id number] Family Dependent VY [id number] [place] [employer] [id number] Family Dependent [id number] [facility] [employer] [id number] Family Dependent VY [id number] [facility] [employer] [id number] Family Dependent VY [id number] [facility] [employer] [id number] Family Dependent VY [id number] [facility] [employer] [id number] Family Dependent VY [id number] [facility] B [id number] O VYS [id number] [facility] [employer] [id number] Family Dependent VY [id number] [employer] [id number] Family Dependent VY [id number] [employer] [id number] Family Dependent VY [id number] BCBS [place] 306/806 [id number] WI2 [id number] [employer] [id number] Family Dependent VY [id number] [employer] BCBS B [id number] P VYS [id number] Problems, Conditions, and Diagnoses No Information Surgeries/Procedures Procedure Description Date Indications Data Source(s) OFFICE OUTPATIENT VISIT 25 MINUTES 08/01/2021 12:00:00 AM EDT MED[facility] ([facility]) OFFICE OUTPATIENT NEW 30 MINUTES 07/15/2021 12:00:00 A M EDT [facility] ([facility]) Diabetic Foot Exam 07/02/2021 12:00:00 AM EDT [facility] ([facility]) OFFICE OUTPATIENT VISIT 25 MINUTES 07/02/2021 12:00:00 AM EDT [facility] ([facility]) ECG ROUTINE ECG W/LEAST 12 LDS W/I&R 04/28/2021 12:00: 00 AM EDT [facility] ([facility]) OFFICE OUTPATIENT VISIT 25 MINUTES 04/28/2021 12:00:00 AM EDT [facility] ([facility]) OFFICE OUTPATIENT VISIT 25 MINUTES 04/03/2021 12:00:00 AM EDT [facility] ([facility] ) OFFICE OUTPATIENT VISIT 25 MINUTES 04/01/2021 12:00:00 AM EDT [facility] ([facility]) OFFICE OUTPATIENT VISIT 25 MINUTES 01/31/2021 12:00:00 AM EDT [facility] ([facility]) OFFICE OUTPATIENT VISIT 25 MINUTES 12/26/2020 12:00:00 AM EDT [facility] ([facility]) OFFICE OUTPATIENT VISIT 25 MINUTES 12/24/2020 12:00:00 AM EDT [facility] ([facility]) OFFICE OUTPATIENT VISIT 15 MINUTES 11/06/2020 12:00:00 AM EST [facility] ([facility]) Results ID Date Data Source [id number] 07/15/2021 12:00:00 AM EDT [facility] Name Value Range Interpretation Code Description Data Malu rce(s) Supporting Document(s) SARS-CoV2 Rapid Antigen Negative [facility] This lab was ordered by [facility] and reported by [facility]. ID Date Data Source [id number] 07/08/2021 09:00:00 PM EDT [facility] ([facility]) Name Value Range Interpretation Code Description Data Malu rce(s) Supporting Document(s) Creatinine [Mass/volume] in Urine 187.0 mg/dL [facility] ([facility]) Microalbumin/Creatinine [Mass Ratio] in Urine 8.1 MCG/MG 0.0-30.0 [facility] ([facility]) THE [place] [employer] ASSOC[employer]ATION STATES THAT MICROALBUMINURIA IS PRESENT IF THE MICROALBUMIN/CREATININE RATIO EXCEEDS 30 MCG/MG. THE THRESHOLD FOR CLINICAL ALBUMINURIA IS REACHED AT 300 MCG/MG. THE CLASSIFICATION OF A PATIENT SHOULD BE BASED UPON AT LEAST 2 OF 3 ABNORMAL RESULTS ON SPECIMENS COLLECTED WITHIN A 3 TO 6 MONTH TIME FRAME. Microalbumin [Mass/volume] in Urine 15.3 mg/L [facility] ([facility]) ID Date Data Source [id number] 07/07/2021 03:54:00 PM EDT [facility] ([facility]) Name Value Range Interpretation Code Description Data Malu rce(s) Supporting Document(s) Red Blood Count 4.80 4.70-6.20 [facility] ([facility] White Blood Count 9.6 4.3-10.9 [facility] ([facility]) Platelets 220 130-400 [facility] Hemoglobin 13.1 13.0-17.0 [facility] ([facility]) Hematocrit 39.8 39.0-50.0 [facility] ([facility]) ID Date Data Source [id number] 07/07/2021 03:54:00 PM EDT [facility] ([facility]) Name Value Range Interpretation Code Description Data Malu rce(s) Supporting Document(s) Glucose 304 70-100 [facility] Creatinine 1.7 0.6-1.5 [facility] ([facility]) Glomerular filtration rate/1.73 sq M.pre dicted [Volume Rate/Area] in Serum or Plasma by Creatinine-based formula (MDRD) 40 [facility] ([facility]) Blood Urea Nitrogen 33.5 5-21 [facility] ([facility]) Potassium 4.73 3.5-5.3 [facility] Sodium 135.4 136-146 [facility] Chloride 100.01 98-110 [facility] Carbon Dioxide 30.5 20-32 [facility] ([facility]) Phosphorus 3.4 [facility] ([facility]) Calcium 9.1 8.4-10.4 [facility] Albumin 4.0 3.5-4.7 [facility] ([facility] ID Date Data Source [id number] 07/02/2021 11:35:00 AM EDT [facility] ([facility]) Name Value Range Interpretation Code Description Data Malu rce(s) Supporting Document(s) Hemoglobin A1c/Hemoglobin.total in Blood 9.3 [facility] ([facility]) Glucose [Mass/volume] in Serum or Plasma 209 [facility] ([facility]) ID Date Data Source [id number] 05/02/2021 09:13:00 AM EDT [facility] ([facility]) Name Value Range Interpretation Code Description Data Malu rce(s) Supporting Document(s) Alt/SGPT 34 U/L 12-78 Normal (applies to non-numeric resul ts) [facility] ([facility]) Alkaline Phosphatase 100 U/L 45-117 Normal (applies to non-num thad results) [facility] ([facility]) Ast/Sgot 35 U/L 7-37 Normal (applies to non-numeric resul ts) [facility] ([facility]) Bilirubin,Direct 0.1 mg/dL 0.0-0.2 Normal (applies to non-numeric results) [facility] ([facility]) Bilirubin,Total 0.5 mg/dL 0.2-1.0 Normal (applies to non-numeric results) [facility] ([facility]) Total Protein 7.7 GM/DL 6.4-8.2 Normal (applies to non-numeric re sults) [facility] ([facility]) Albumin/Globulin Ratio 0.8 Normal (applies to non-n umeric results) [facility] ([facility]) Albumin 3.5 GM/DL 3.2-5.2 Normal (applies to non-numeric resul ts) [facility] ([facility]) ID Date Data Source [id number] 05/02/2021 09:13:00 AM EDT [facility]) Name Value Range Interpretation Code Description Data Malu rce(s) Supporting Document(s) Triglycerides Level 242 mg/dL Above high normal [facility] ([facility]) HDL Cholesterol 28 mg/dL Below low normal [facility] ([facility]) Cholesterol Level 119 mg/dL Normal (applies to non-numeri c results) [facility] ([facility]) Non-HDL-C 91 mg/dL Normal (applies to non-numeric resul ts) [facility] ([facility]) LDL Cholesterol 43 mg/dL Normal (applies to non-numeric results) [facility] ([facility]) Cholesterol Risk Ratio 4.250 Normal (applies to non-n umeric results) [facility] ([facility]) ID Date Data Source [id number] 05/02/2021 09:13:00 AM EDT [facility] ([facility]) Name Value Range Interpretation Code Description Data Malu rce(s) Supporting Document(s) PSA Total 3.9 ng/mL 0.0-4.0 Normal (applies to non-numeric resul ts) [facility] ([facility]) Mariya ECLIA methodology. . According to the [place] [employer], Serum PSA should decrease and [...] Normal (applies to non- numeric results) [facility] ([facility]) . The percent free PSA is performed on a reflex basis only when the total PSA is between 4.0 and 10.0 ng/mL. Performed at: RN - [facility] [address] [id number] Prop Making Supervisor: Alessia Osuna MD, Phone: [phone] ID Date Data Source [id number] 05/02/2021 09:13:00 AM EDT [facility] ([facility]) Name Value Range Interpretation Code Description Data Malu rce(s) Supporting Document(s) Ast/Sgot 35 U/L 7-37 [facility] Alt/SGPT 34 U/L 12-78 [facility] Bilirubin,Total 0.5 mg/dL 0.2-1.0 [facility] ([facility]) Alkaline Phosphatase 100 U/L 45-117 [facility] ([facility]) Total Protein 7.7 GM/DL 6.4-8.2 [facility] ([facility]) Bilirubin,Direct 0.1 mg/dL 0.0-0.2 [facility] ([facility]) Albumin 3.5 GM/DL 3.2-5.2 [facility] Albumin/Globulin Ratio 0.8 [facility] ([facility]) ID Date Data Source [id number] 05/02/2021 09:13:00 AM EDT [facility] ([facility]) Name Value Range Interpretation Code Description Data Malu rce(s) Supporting Document(s) Triglycerides Level 242 mg/dL [facility] ([facility]) HDL Cholesterol 28 mg/dL [facility] ([facility]) Cholesterol Level 119 mg/dL [facility] ([facility]) LDL Cholesterol 43 mg/dL [facility] ([facility]) Cholesterol Risk Ratio 4.250 [facility] ([facility]) Non-HDL-C 91 mg/dL [facility] ID Date Data Source [id number] 04/03/2021 03:09:00 PM EDT [facility] ([facility]) Name Value Range Interpretation Code Description Data Malu rce(s) Supporting Document(s) Glucose [Mass/volume] in Serum or Plasma 305 [facility] ([facility]) Hemoglobin A1c/Hemoglobin.total in Blood Laboratory test result [facility] ([facility]) ID Date Data Source [id number] 03/28/2021 03:48:00 PM EDT [facility] ([facility]) Name Value Range Interpretation Code Description Data Malu rce(s) Supporting Document(s) Magnesium Level 1.54 [facility] ([facility]) ID Date Data Source [id number] 03/28/2021 03:48:00 PM EDT [facility] [facility]) Name Value Range Interpretation Code Description Data Malu rce(s) Supporting Document(s) Calcium [Mass/volume] in Serum or Plasma 8.9 [facility] ([facility]) Sodium 136 [facility] Carbon dioxide, total [Moles/volume] in Serum or Plasma 27.1 [facility] ([facility]) Chloride [Moles/volume] in Serum or Plasma 104.7 [facility] ([facility]) Potassium [Moles/volume] in Serum or Plasma 4.21 [facility] ([facility]) Blood Urea Nitrogen 34.7 7-18 [facility] ([facility]) Glucose 184 70-106 [facility] ([facility]) Glomerular filtration rate/1.73 sq M.pre dicted [Volume Rate/Area] in Serum or Plasma by Creatinine-based formula (MDRD) 40 [facility] ([facility]) Creatinine 1.7 0.55-1.3 [facility] ([facility]) ID Date Data Source [id number] 03/28/2021 03:48:00 PM EDT [facility] ([facility]) Name Value Range Interpretation Code Description Data Malu rce(s) Supporting Document(s) White Blood Count 8.6 5.0-10.0 [facility] ([facility]) Hemoglobin 13.7 14.0-18.0 [facility] ([facility]) Red Blood Count 4.93 4.70-6.10 [facility] ([facility]) Platelets 226 172-450 [facility] Hematocrit 41.0 42.0-52.0 [facility] ([facility]) ID Date Data Source [id number] 12/24/2020 02:28:00 PM EDT [facility] ([facility]) Name Value Range Interpretation Code Description Data Malu rce(s) Supporting Document(s) Glucose [Mass/volume] in Serum or Plasma 389 [facility] ([facility]) Hemoglobin A1c/Hemoglobin.total in Blood 9.9 [facility] ([facility]) ID Date Data Source [id number] 09/24/2020 01:43:00 PM EST [facility] ([facility]) Name Value Range Interpretation Code Description Data Malu rce(s) Supporting Document(s) Hemoglobin A1c/Hemoglobin.total in Blood Laboratory test result [facility] ([facility]) Glucose [Mass/volume] in Serum or Plasma 341 [facility] ([facility]) ID Date Data Source [id number] 09/24/2020 01:23:00 PM EST [facility] ([facility]) Name Value Range Interpretation Code Description Data Malu rce(s) Supporting Document(s) Glucose [Mass/volume] in Serum or Plasma 341 [facility] ([facility]) ID Date Data Source [id number] 08/29/2020 09:24:00 AM EST [facility] Name Value Range Interpretation Code Description Data Malu rce(s) Supporting Document(s) Alanine aminotransferase [Enzymatic activity/volume] in Serum or Pl asma 42 [facility] ([facility]) Calcium [Mass/volume] in Serum or Plasma 9.1 [facility] ([facility]) Albumin [Mass/volume] in Serum or Plasma 3.6 [facility] ([facility]) Alkaline phosphatase [Enzymatic activity/volume] in Serum or Plasma 1 21 [facility] ([facility]) Carbon dioxide, total [Moles/volume] in Serum or Plasma 26 [facility] ([facility]) Chloride [Moles/volume] in Serum or Plasma 105 [facility] ([facility]) Potassium [Moles/volume] in Serum or Plasma 4.6 [facility] ([facility]) Sodium 137 [facility] ([facility]) Protein [Mass/volume] in Serum or Plasma 7.8 [facility] ([facility]) Glucose 191 70-100 [facility] ([facility]) Aspartate aminotransferase [Enzymatic activity/volume] in Serum or Plasma 37 [facility] ([facility]) Urea nitrogen [Mass/volume] in Serum or Plasma 23 [facility] ([facility]) Creatinine For GFR 1.60 [facility] ([facility]) ID Date Data Source [id number] 08/29/2020 09:24:00 AM EST [facility] ([facility]) Name Value Range Interpretation Code Description Data Malu rce(s) Supporting Document(s) Hemoglobin A1c/Hemoglobin.total in Blood 10.2 [facility] ([facility]) ID Date Data Source [id number] 08/29/2020 09:24:00 AM EST [facility] ([facility]) Name Value Range Interpretation Code Description Data Malu rce(s) Supporting Document(s) Red Blood Count 5.15 4.30-6.10 [facility] ([facility]) White Blood Count 8.4 4.0-10.0 [facility] ([facility]) Hemoglobin 14.2 [facility] ([facility]) Platelets 155 150-450 [facility] ([facility]) Hematocrit 43.7 [facility] ([facility]) ID Date Data Source [id number] 08/29/2020 09:06:00 AM EST [facility] ([facility]) Name Value Range Interpretation Code Description Data Amlu rce(s) Supporting Document(s) Malb Urine Siemens 152.0 mg/L Normal (applies to non-numer ic results) [facility]) Amadou/Creat Ratio 53.7 MCG/MG 0.0-30.0 Above high normal M [facility] ([facility]) THE [employer] STATES THAT MICROALBUMINURIA IS PRESENT IF THE MICROALBUMIN/CREATININE RATIO EXCEEDS 30 MCG/MG. THE THRESHOLD FOR CLINICAL ALBUMINURIA IS REACHED AT 300 MCG/MG. THE CLASSIFICATION OF A PATIENT SHOULD BE BASED UPON AT LEAST 2 OF 3 ABNORMAL RESULTS ON SPECIMENS COLLECTED WITHIN A 3 TO 6 MONTH TIME FRAME. Creatinine, Urine 283.0 mg/dL Normal (applies to non-numer ic results) [facility] ([facility]) ID Date Data Source [id number] 08/28/2020 10:55:00 AM EST [facility] ([facility]) Name Value Range Interpretation Code Description Data Malu rce(s) Supporting Document(s) White Blood Count 8.4 10 4.0-10.0 Normal (applies to non-numeri c results) [facility] ([facility]) Hematocrit 43.7 % 42.0-52.0 Normal (applies to non-numeric resul ts) [facility] ([facility]) Red Blood Count 5.15 10 4.30-6.10 Normal (applies to non-numeric results) [facility] ([facility]) Hemoglobin 14.2 g/dL 13.5-17.5 Normal (applies to non-numeric resul ts) [facility] ([facility]) Mean Corpuscular Hemoglobin 27.6 pg 27.0-33.0 Norm al (applies to non-numeric results) [facility] ([facility]) Mean Corpuscular Volume 84.9 fl 80.0-96.0 Normal ( applies to non-numeric results) [facility] ([facility]) Red Cell Distribution Width 14.5 % 11.5-14.5 Norm al (applies to non-numeric results) [facility] ([facility]) Platelet Count, Automated 155 10 150-450 Normal (applies to non-numeric results) [facility] ([facility]) Mean Corpuscular HGB Conc 32.5 g/dL 32.0-36.5 Normal (applies to non-numeric results) [facility] ([facility]) Lymph % 20.7 % 24.0-44.0 Below low normal [facility] ( [facility]) Neutrophils % 69.4 % 36.0-66.0 Above high normal [facility] ([facility]) Dickens % 6.7 % 0.0-5.0 Above high normal [facility] ([facility]) Baso % 1.3 % 0.0-1.0 Above high normal [facility] ([facility]) Eos % 1.2 % 0.0-3.0 Normal (applies to non-numeric resul ts) [facility] ([facility]) Nucleated Red Blood Cell % 0.0 % 0-0 Normal (applies to n on-numeric results) [facility] ([facility]) Immature Granulocyte % 0.7 % 0-3.0 Normal (applies to non-n umeric results) [facility] ([facility]) Neutrophils # 5.8 10 1.5-8.5 Normal (applies to non-numeric re sults) [facility] ([facility]) Dickens # 0.6 10 0.0-0.8 Normal (applies to non-numeric resul ts) [facility] ([facility]) Lymph # 1.7 10 1.5-5.0 Normal (applies to non-numeric resul ts) [facility] ([facility]) Eos # 0.1 10 0.0-0.5 Normal (applies to non-numeric resul ts) [facility] ([facility]) Baso # 0.1 10 0.0-0.2 Normal (applies to non-numeric resul ts) [facility] ([facility]) ID Date Data Source [id number] 08/28/2020 10:55:00 AM EST [facility] ([facility]) Name Value Range Interpretation Code Description Data Malu rce(s) Supporting Document(s) Glucose, Fasting 191 mg/dL 70-100 Above high normal M [facility] ([facility]) Creatinine For GFR 1.60 mg/dL 0.70-1.30 Above high normal [facility] ([facility]) Blood Urea Nitrogen 23 mg/dL 7-18 Above high normal [facility] ([facility]) Sodium Level 137 meq/L 136-145 Normal (applies to non-numeric res ults) [facility] ([facility]) Glomerular Filtration Rate 46.3 Below low normal [facility] ([facility]) <content>Units are mL/min/1.73 m2</content>
<content></content>
<content>Chronic Kidney Disease Staging per NKF:</content>
<content></content>
<content>Stage I & II GFR >=60 Normal to Mildly Decreased</content>
<content>Stage III GFR 30- 59 Moderately Decreased</content>
<content>Stage IV GFR 15-29 Severely Decreased</content>
<content>Stage V GFR <15 Very Little GFR Left</content>
<content>ESRD GFR <15 on WELDING MACHINE FEEDER</content>
<content></content> Potassium Serum 4.6 meq/L 3.5-5.1 Normal (applies to non-numeric results) [facility] ([facility]) Chloride Level 105 meq/L 98-107 Normal (applies to non-numeric r esults) [facility] ([facility]) Carbon Dioxide Level 26 meq/L 21-32 Normal (applies to non-num thad results) [facility] ([facility]) Ast/Sgot 37 U/L 7-37 Normal (applies to non-numeric resul ts) [facility] ([facility]) Anion Gap 6 meq/L 8-16 Below low [facility] Calcium Level 9.1 mg/dL 8.8-10.2 Normal (applies to non-numeric re sults) [facility] ([facility]) Alt/SGPT 42 U/L 12-78 Normal (applies to non-numeric resul ts) [facility] ([facility]) Alkaline Phosphatase 121 U/L 45-117 Above high normal [facility] Bilirubin,Total 0.8 mg/dL 0.2-1.0 Normal (applies to non-numeric results) [facility] ([facility]) Albumin 3.6 GM/DL 3.2-5.2 Normal (applies to non-numeric resul ts) [facility] ([facility]) Total Protein 7.8 GM/DL 6.4-8.2 Normal (applies to non-numeric re sults) [facility] ([facility]) Albumin/Globulin Ratio 0.9 Normal (applies to non-n umeric results) [facility] ([facility]) ID Date Data Source [id number] 08/28/2020 10:55:00 AM EST [facility] ([facility]) Name Value Range Interpretation Code Description Data Malu rce(s) Supporting Document(s) Hemoglobin A1c 10.2 % Normal (applies to non-numeric r esults) [facility] ([facility]) <content>REFERENCE RANGES:</content><br/ ><content></content>
<content><=5.6% NORMAL</content>
<content>5.7-6.4% SUGGESTS IMPAIRED GLUCOSE METABOLISM/PREDIABETIC</content>
<content>>= 6.5% ABNORMAL</content>
<content></content> Estimated Average Glucose 246 mg/dL 60-110 Above high normal [facility] ([facility]) ID Date Data Source [id number] 07/04/2020 04:09:00 PM EDT [facility] ([facility]) Name Value Range Interpretation Code Description Data Malu rce(s) Supporting Document(s) Hemoglobin A1c/Hemoglobin.total in Blood 9.0 [facility] ([facility]) Glucose [Mass/volume] in Serum or Plasma 214 [facility] ([facility]) Procedure Social History Code Duration Value Status Description Data Source(s ) Smoking 08/01/2021 12:00:00 AM EDT Patient has never smoked co mpleted Patient has never smoked [facility] ([facility]) Smoking 07/15/2021 12:00:00 AM EDT Patient has never smoked co mpleted Patient has never smoked [facility] ([facility], [facility]) Smoking 07/02/2021 12:00:00 AM EDT Never Smoked Cigarettes com pleted Never Smoked Cigarettes [facility] ([facility]) Smoking 04/28/2021 12:00:00 AM EDT Patient has never smoked co mpleted Patient has never smoked [facility] ([facility]) Vital Signs ID Date Data Source [id number] Name Value Range Interpretation Code Description Data Source(s) Systolic blood pressure 124 mm[Hg] 124 mm[Hg] M [facility]ENT ([facility]) Diastolic blood pressure 72 mm[Hg] 72 mm[Hg] [facility] ([facility]) Body height 65.8 [in_i] 65.8 [in_i] [facility] ([facility]) 5'5.80" Body weight 246.00 [lb_av] 246.00 [lb_av] [facility] T ([facility]) Body mass index (BMI) [Ratio] 39.9 kg/m2 39.9 k g/m2 [facility] ([facility]) Heart rate 78 /min 78 /min [facility] ([facility]) Respiratory rate 14 /min 14 /min [facility] ( [facility]) Body temperature 97.2 [degF] 97.2 [degF] [facility] ([facility]) Oxygen saturation in Arterial blood by Pulse oximetry 97 % 97 % [facility] ([facility]) Lawn body weight 136 [lb_av] 136 [lb_av] [facility]EN T ([facility]) Systolic blood pressure 134 mm[Hg] 134 mm[Hg] M ED[facility] ([facility], [facility]) Diastolic blood pressure 92 mm[Hg] 92 mm[Hg] [facility] ([facility], [facility]) Heart rate 97 /min 97 /min [facility] ([facility]) Respiratory rate 20 /min 20 /min [facility] ( [facility], [facility]) Oxygen saturation in Arterial blood by Pulse oximetry 95 % 95 % [facility] ([facility], [facility]) Body temperature 98.2 [degF] 98.2 [degF] [facility] ([facility], [facility]) Body weight 248.00 [lb_av] 248.00 [lb_av] MEDEN T ([facility], [facility]) Diastolic blood pressure 80 mm[Hg] 80 mm[Hg] [facility] ([facility]) Systolic blood pressure 126 mm[Hg] 126 mm[Hg] M [facility] ([facility]) Heart rate 58 /min 58 /min [facility] ([facility]) Body height 66.5 [in_i] 66.5 [in_i] [facility] ([facility]) 5'6.50" Body weight 249.25 [lb_av] 249.25 [lb_av] [facility] T ([facility] ) Body mass index (BMI) [Ratio] 39.6 kg/m2 39.6 k g/m2 [facility] ([facility] ) Oxygen saturation in Arterial blood by Pulse oximetry 97 % 97 % [facility] ([facility] ) Respiratory rate 16 /min 16 /min [facility] ( [facility]) Body weight 242.00 [lb_av] 242.00 [lb_av] [facility]EN T ([facility]) Heart rate 72 /min 72 /min [facility] ([facility]) Regular Systolic blood pressure 134 mm[Hg] 134 mm[Hg] M [facility] ([facility]) sitting, large cuff Diastolic blood pressure 80 mm[Hg] 80 mm[Hg] [facility] ([facility]) sitting, large cuff Systolic blood pressure 134 mm[Hg] 134 mm[Hg] M [facility] ([facility]) sitting Diastolic blood pressure 76 mm[Hg] 76 mm[Hg] [facility] ([facility]) sitting Body height 65 [in_i] 65 [in_i] [facility] ([facility]) 5'5" Body mass index (BMI) [Ratio] 40.3 kg/m2 40.3 k g/m2 [facility] ([facility]) Body height 66.5 [in_i] 66.5 [in_i] [facility] ([facility]) 5'6.50" Body weight 247.38 [lb_av] 247.38 [lb_av] [facility] T ([facility] ) Body mass index (BMI) [Ratio] 39.3 kg/m2 39.3 k g/m2 [facility] ([facility] ) Systolic blood pressure 132 mm[Hg] 132 mm[Hg] M [facility] ([facility]) Diastolic blood pressure 76 mm[Hg] 76 mm[Hg] [facility] ([facility] ) Heart rate 87 /min 87 /min [facility] ([facility] ) Body temperature 97.5 [degF] 97.5 [degF] [facility] ([facility]) Systolic blood pressure 128 mm[Hg] 128 mm[Hg] M [facility] ([facility]) Diastolic blood pressure 78 mm[Hg] 78 mm[Hg] [facility] ([facility]) Body height 65.8 [in_i] 65.8 [in_i] [facility] ([facility]) 5'5.80" Body weight 249.12 [lb_av] 249.12 [lb_av] [facility] T ([facility]) Body mass index (BMI) [Ratio] 40.5 kg/m2 40.5 k g/m2 [facility] ([facility]) Heart rate 95 /min 95 /min [facility] ([facility]) Respiratory rate 18 /min 18 /min [facility] ( [facility]) Body temperature 96.8 [degF] 96.8 [degF] [facility] ([facility]) Oxygen saturation in Arterial blood by Pulse oximetry 96 % 96 % [facility] ([facility]) Lawn body weight 136 [lb_av] 136 [lb_av] [facility] T ([facility]) Systolic blood pressure 110 mm[Hg] 110 mm[Hg] M [facility] ([facility]) Body temperature 96.9 [degF] 96.9 [degF] [facility] ([facility]) Oxygen saturation in Arterial blood by Pulse oximetry 95 % 95 % [facility] ([facility]) Diastolic blood pressure 76 mm[Hg] 76 mm[Hg] [facility] ([facility]) Heart rate 85 /min 85 /min [facility] ([facility]) Body height 66.5 [in_i] 66.5 [in_i] [facility] ([facility]) 5'6.50" Body weight 247.38 [lb_av] 247.38 [lb_av] [facility] T ([facility]) Body mass index (BMI) [Ratio] 39.3 kg/m2 39.3 k g/m2 [facility] ([facility]) Oxygen saturation in Arterial blood by Pulse oximetry 96 % 96 % [facility] ([facility]) Heart rate 78 /min 78 /min [facility] ([facility]) Systolic blood pressure 138 mm[Hg] 138 mm[Hg] M [facility] ([facility]) Diastolic blood pressure 84 mm[Hg] 84 mm[Hg] [facility] ([facility]) Body height 65.8 [in_i] 65.8 [in_i] [facility] ([facility]) 5'5.80" Body weight 248.00 [lb_av] 248.00 [lb_av] [facility] T ([facility]) Body mass index (BMI) [Ratio] 40.3 kg/m2 40.3 k g/m2 [facility] ([facility]) Respiratory rate 20 /min 20 /min [facility] ( [facility]) Body temperature 97.9 [degF] 97.9 [degF] [facility] ([facility]) Lawn body weight 136 [lb_av] 136 [lb_av] [facility] T ([facility]) Systolic blood pressure 122 mm[Hg] 122 mm[Hg] M [facility] ([facility] ) Diastolic blood pressure 76 mm[Hg] 76 mm[Hg] [facility] ([facility] ) Heart rate 77 /min 77 /min [facility] ([facility] ) Body temperature 97.3 [degF] 97.3 [degF] [facility] ([facility] ) Body height 66.5 [in_i] 66.5 [in_i] [facility] ([facility] 5'6.50" Body weight 250.50 [lb_av] 250.50 [lb_av] [facility] T ([facility] ) Body mass index (BMI) [Ratio] 39.8 kg/m2 39.8 k g/m2 [facility] ([facility] ) Oxygen saturation in Arterial blood by Pulse oximetry 98 % 98 % [facility] ([facility] ) Body weight 245.00 [lb_av] 245.00 [lb_av] [facility] T ([facility] ) Body mass index (BMI) [Ratio] 39.5 kg/m2 39.5 k g/m2 [facility] ([facility] ) Body temperature 97.3 [degF] 97.3 [degF] [facility] ([facility] ) Body height 66 [in_i] 66 [in_i] [facility] ([facility] ) 5'6" Lawn body weight 136 [lb_av] 136 [lb_av] [facility] T ([facility]) Systolic blood pressure 164 mm[Hg] 164 mm[Hg] M [facility] ([facility]) Diastolic blood pressure 90 mm[Hg] 90 mm[Hg] [facility] ([facility]) Body height 65.8 [in_i] 65.8 [in_i] [facility] ([facility]) 5'5.80" Body weight 249.00 [lb_av] 249.00 [lb_av] [facility] T ([facility]) Body mass index (BMI) [Ratio] 40.4 kg/m2 40.4 k g/m2 [facility] ([facility]) Heart rate 94 /min 94 /min [facility] ([facility]) Respiratory rate 22 /min 22 /min [facility] ( [facility]) Body temperature 97.8 [degF] 97.8 [degF] [facility] ([facility]) Oxygen saturation in Arterial blood by Pulse oximetry 97 % 97 % [facility] ([facility]) Body weight 245.00 [lb_av] 245.00 [lb_av] [facility] T ([facility]) Body mass index (BMI) [Ratio] 40.8 kg/m2 40.8 k g/m2 [facility] ([facility]) Heart rate 76 /min 76 /min [facility] ([facility]) Regular Respiratory rate 16 /min 16 /min [facility] ( [facility]) Systolic blood pressure 126 mm[Hg] 126 mm[Hg] M [facility] ([facility]) sitting, large cuff Diastolic blood pressure 68 mm[Hg] 68 mm[Hg] [facility] ([facility]) sitting, large cuff Systolic blood pressure 126 mm[Hg] 126 mm[Hg] M [facility] ([facility]) sitting Diastolic blood pressure 66 mm[Hg] 66 mm[Hg] [facility] ([facility]) sitting Body height 65 [in_i] 65 [in_i] [facility] ([facility]) 5'5" Body temperature 97.4 [degF] 97.4 [degF] [facility] ([facility]) Oxygen saturation in Arterial blood by Pulse oximetry 99 % 99 % [facility] ([facility]) Heart rate 78 /min 78 /min [facility] ([facility]) Lawn body weight 136 [lb_av] 136 [lb_av] [facility] T ([facility]) Respiratory rate 18 /min 18 /min [facility] ( [facility]) Systolic blood pressure 138 mm[Hg] 138 mm[Hg] M [facility] ([facility]) Diastolic blood pressure 82 mm[Hg] 82 mm[Hg] [facility] ([facility]) Body height 65.8 [in_i] 65.8 [in_i] [facility] ([facility]) 5'5.80" Body weight 245.00 [lb_av] 245.00 [lb_av] MED[facility] T ([facility]) Body mass index (BMI) [Ratio] 39.8 kg/m2 39.8 k g/m2 [facility] ([facility]) Body temperature 97.0 [degF] 97.0 [degF] [facility] ([facility]) Body height 66.5 [in_i] 66.5 [in_i] [facility] ([facility]) 5'6.50" Body weight 250.00 [lb_av] 250.00 [lb_av] MED[facility] T ([facility]) Systolic blood pressure 128 mm[Hg] 128 mm[Hg] M [facility] ([facility]) Diastolic blood pressure 78 mm[Hg] 78 mm[Hg] [facility] ([facility]) Heart rate 106 /min 106 /min [facility] ([facility]) Body mass index (BMI) [Ratio] 39.7 kg/m2 39.7 k g/m2 [facility] ([facility]) Oxygen saturation in Arterial blood by Pulse oximetry 96 % 96 % [facility] ([facility]) Heart rate 68 /min 68 /min [facility] ([facility]) Body height 66.5 [in_i] 66.5 [in_i] [facility] ([facility]) 5'6.50" Body weight 245.12 [lb_av] 245.12 [lb_av] [facility] T ([facility]) Systolic blood pressure 122 mm[Hg] 122 mm[Hg] M [facility] ([facility]) Diastolic blood pressure 70 mm[Hg] 70 mm[Hg] [facility] ([facility]) Body mass index (BMI) [Ratio] 39.0 kg/m2 39.0 k g/m2 [facility] ([facility]) Oxygen saturation in Arterial blood by Pulse oximetry 96 % 96 % [facility] ([facility]) Body mass index (BMI) [Ratio] 39.6 kg/m2 39.6 k g/m2 [place] ([facility]) Lawn body weight 136 [lb_av] 136 [lb_av] ROSELIA [place] ([facility]) Heart rate 96 /min 96 /min [facility] ([facility]) Respiratory rate 18 /min 18 /[facility] Body temperature 97.0 [degF] 97.0 [degF] [place] ([facility]) Oxygen saturation in Arterial blood by Pulse oximetry 97 % 97 % [place] ([facility]) Systolic blood pressure 132 mm[Hg] 132 mm[Hg] M EDENT ([facility]) Diastolic blood pressure 74 mm[Hg] 74 mm[Hg] [place] ([facility]) Body height 65.8 [in_i] 65.8 [in_i] [place] ([facility]) 5'5.80" Body weight 244.00 [lb_av] 244.00 [lb_av] ROSELIA Duvall ([facility])
[2021-08-12 10:44] LABS: ALBUMIN 3.4 GM/DL (3.2-5.2); BILIRUBIN,DIRECT 0.2 MG/DL (0.0-0.2); BILIRUBIN,TOTAL 0.6 MG/DL (0.2-1.0); TOTAL PROTEIN 8.6 GM/DL (6.4-8.2)
[2021-08-12 10:49] LABS: RSV AMPLIFICATION NEGATIVE (NEGATIVE)
[2021-08-12] MEDS ORDERED: ACETAMINOPHEN 500 MG TAB PO ONE ×2 (11:15→16:15)
[2021-08-12] MEDS ORDERED: NS 1,000 ML IV ONE (11:15)
[2021-08-12] MEDS ORDERED: ONDANSETRON 4MG/2ML VIAL IV ONE (11:15)
[2021-08-12 14:02] LABS: CALCIUM LEVEL 7.9 MG/DL (8.8-10.2); CREATININE FOR GFR 2.01 MG/DL (0.70-1.30); GLOMERULAR FILTRATION RATE 35.5 (>49); POTASSIUM SERUM 4.9 MEQ/L (3.5-5.1)
[2021-08-12] MEDS ORDERED: ONDA4TAB6 PO (15:47)
[2021-08-12 16:38] VITALS: BP 141/91
== END 2021-08-12 16:56 | disposition home or self-care (01) ==
LOC: M ED 09:09
DX: R11.2 Nausea with vomiting, unspecified (principal); R19.7 Diarrhea, unspecified; U07.1 COVID-19; E11.9 Type 2 diabetes mellitus without complications; I12.9 Hypertensive chronic kidney disease with stage 1 through stage 4 chronic kidney disease, or unspecified chronic kidney disease; N18.30 Chronic kidney disease, stage 3 unspecified; I48.91 Unspecified atrial fibrillation; G47.33 Obstructive sleep apnea (adult) (pediatric); Z79.899 Other long term (current) drug therapy; Z79.4 Long term (current) use of insulin; Z88.0 Allergy status to penicillin
CPT/HCPCS: 80047; 80048; 80076; 83690; 85025; 87631; 96361; 96374; 99284; J2405

== ENCOUNTER 2021-08-13 13:27 | Outpatient (CLI) | payer MEDICARE ==
--- NOTE | 2021-08-12 16:38 | CR.PDOC ---
General Date of Consultation: Aug 12, 2021 Attending Physician: Sandra Victoria MD Consultation CHIEF COMPLAINT: N/V/D HISTORY OF PRESENT ILLNESS: Patient is a 66-year-old male with past medical history of diabetes, CKD stage III, atrial fibrillation, hypertension who presented to [facility] with the chief complaint of nausea, vomiting, diarrhea over the past 48 hours. The patient states his symptoms have worsened over that time period. He is had a total of 610 vomiting episodes per day and approximately 10 diarrhea episodes per day. All episodes were nonbloody. He's also experienced decreased appetite, fatigue with his last meal being this past weekend. He denies shortness of breath, chest pain, fevers, chills, abdominal pain. He came to the emergency room for further evaluation today. In the emergency room vital signs were stable. Patient was tested for Covid 19 and was positive. Creatinine was elevated at 2.01, baseline 1.61.7. His reference assistant was contacted and they did not feel this needed to be addressed as inpatient. Other labs were unremarkable. I was called to order monoclonal antibodies for this patient. Consent was obtained and risks were discussed with patient. REVIEW OF SYSTEMS: CONSTITUTIONAL: Denies unexplained weight gain or weight loss, ever, night sweats EYES: Denies eye drainage, eye pain, visual changes, dry/irritated eye EARS, NOSE, MOUTH, THROAT: Denies difficulty hearing, ringing in ears, mouth sores, loose teeth, sore throat, facial numbness or pain NECK: Denies swollen glands CARDIOVASCULAR: Denies irregular heartbeat, racing heart, chest pains, swelling of feet or legs, pain in legs with walking RESPIRATORY: Denies shortness of breath, night sweats, wheezing, sputum production, oxygen at home, coughing up blood, cough lasting > 1 month GASTROINTESTINAL: Denies abdominal pain, constipation, bloody stool, diarrhea, heartburn, nausea, vomiting GENITOURINARY: Denies painful urination, bloody urine, frequent urination, urgency, leaking urine, impotence MUSCULOSKELETAL: Denies joint pain, muscle pain, leg swelling INTEGUMENTARY: Denies rash, itching, new skin lesion, change in existing skin lesion, hair loss or increase, breast changes. NEUROLOGICAL: Denies headaches, dizziness, difficulty walking, numbness or tingling PSYCHIATRIC: Denies depression, anxiety, recurrent bad thoughts, mood swings, hallucinations PAST MEDICAL HISTORY: diabetes, CKD stage III, atrial fibrillation, hypertension PAST SURGICAL HISTORY: Bilateral knee surgery FAMILY HISTORY: Motherdiabetes mellitus. at 68. Fatherhypertension. in his 70s. SOCIAL HISTORY: Patient denies smoking, alcohol or drug use history. 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 ALLERGIES: Please see below. HOME MEDICATIONS: Please see below. PHYSICAL EXAMINATION: vs: Stable CONSTITUTIONAL: No acute distress, resting comfortably, AAO x 3 EYES: PERRLA, EOM intact HENT, MOUTH: Normocephalic, atraumatic, moist mucous membranes NECK: SUPPLE, no JVD, no lymphadenopathy, no carotid bruit CV: Regular rate and rhythm, S1S2 normal, no murmurs/rubs/gallops RESPIRATORY: Clear to auscultation bilaterally, no rales/rhonchi/wheezes GI: Obese abdomen, BS positive in 4 quadrants, soft, nontender, nondistended, no rebound or guarding, no organomegaly : Deferred MUSCULOSKELETAL: Normal ROM. No cyanosis, clubbing, swelling, joint deformity, extremity edema INTEGUMENTARY: Intact, no rashes, no lesions, no erythema NEUROLOGIC: Cranial Nerves II-XII are intact, no focal deficits PSYCHIATRIC: Mood and affect are normal LABORATORY DATA: Please see below IMAGING: None ASSESSMENT: 66-year-old male with past medical history of diabetes, CKD stage III, atrial fibrillation, hypertension evaluated for monoclonal antibody infusion. Consent was obtained and risks were discussed with patient. PLAN: COVID-19 infection -Not suspecting superimposed pneumonia. -Monoclonal ab ordered to be scheduled by ER prior to discharge -Quarantine information given to patient -If his symptoms should worsen or develop incr SOB, chest pain then he should report back to ER to be further evaluation Nausea/vomiting/diarrhea likely secondary to infection above -Would recommend d/c with zofran PRN -Tx above CKD Stage III -Cr only slightly elevated from baseline -F/u with nephrology o/p after quarantine -Encourage PO hydration DM type II -F/u with o/p endo HTN -Stable DISPOSITION: O/p monoclonal antibody infusion to be scheduled, recommend patient to keep appointment. REcommend close f/u by PCP in event Cr should increase, med s need to be adjusted. Allergies Coded Allergies: Penicillins (Verified Allergy, Intermediate, HIVES, 08/12/21) Home Medications Scheduled Amlodipine Besylate (Amlodipine Besylate) 10 Mg Tab, 5 MG PO QAM, (Reported) Atorvastatin Calcium (Atorvastatin Calcium) 20 Mg Tab, 20 MG PO QHS, (Reported) Chlorthalidone (Chlorthalidone) 12.5 Mg Halftab, 12.5 MG PO QAM, (Reported) Insulin Degludec (Tresiba Flextouch U-200) 200 Unit/1 Ml Insuln.pen, 80 UNITS QAM, (Reported) Iron Polysaccharide Complex (Poly-Iron) 150 Mg Cap, 150 MG PO QAM, (Reported) Magnesium Chloride (Mag64) 64 Mg Tabcr, 64 MG PO BID, (Reported) Metoprolol Succinate (Metoprolol Succinate) 200 Mg Tab, 200 MG PO QAM, (Reported) Ranitidine HCl (Ranitidine HCl) 300 Mg Cap, 300 MG PO QHS, (Reported) Rivaroxaban (Xarelto) 20 Mg Tab, 20 MG PO DAILY, (Reported) Sertraline HCl (Sertraline HCl) 50 Mg Tab, 50 MG PO QAM, (Reported) Scheduled PRN Ondansetron (Ondansetron Odt) 4 Mg Tab.rapdis, 4 MG PO Q6-8HP PRN for nausea/vomiting for 4 Days, #16 Miscellaneous Medications Albuterol Sulfate (Albuterol Sulfate Hfa) 8.5 Gm Hfa.aer.ad, (Reported) Insulin Aspart (Novolog Flexpen) 100 Unit/1 Ml Insuln.pen, (Reported) Sandra Victoria MD Aug 12, 2021 16:38
[~2021-08-13] VITALS: Ht 167.6 cm; Wt 108.9 kg
[~2021-08-13 13:27] MED LIST changes: +ALBU8.5H; +ALBUTEROL 90 MCG/ACT 8GM HFA INHALER INH PRN; +ALBUTEROL SULFATE 2.5 MG/0.5 ML INH NEB SOLN INH PRN; +BAMLANIVIMAB 700 MG, ETESEVIMAB 1,400 MG in NS 250 ML IV ONE; +EPINEPHrine INJ 1 MG/ML 1ML AMP IM PRN; +NOVOINJ3; +NS 1,000 ML IV SCH; +ONDA4TAB6 PO; +TRES1INJ; +diphenhydrAMINE 50MG/ML VIAL (J1200) IV PRN; +methylPREDNISolone 125MG 2ML VIAL IV PRN
[2021-08-13] MEDS ORDERED: CASIRIVIMAB (REGN10933) 600 MG, IMDEVIMAB (REGN10987) 600 MG in NS 250 ML IV ONE (13:30)
[2021-08-13 14:43] VITALS: BP 131/73
[2021-08-13 15:13] VITALS: BP 110/77
[2021-08-13 15:43] VITALS: BP 122/76
[2021-08-13 16:43] VITALS: BP 145/95
== END 2021-08-13 16:43 | disposition home or self-care (01) ==
LOC: M OPCLI4PR 13:27
PROVIDERS: ATTEND Physician Assistant
DX: U07.1 COVID-19 (principal); Z88.0 Allergy status to penicillin

== ENCOUNTER → 2022-05-12 | Outpatient (CLI) | payer MEDICARE, BC ==
[~2022-05-12] MED LIST changes: -ALBUTEROL 90 MCG/ACT 8GM HFA INHALER INH PRN; -ALBUTEROL SULFATE 2.5 MG/0.5 ML INH NEB SOLN INH PRN; -BAMLANIVIMAB 700 MG, ETESEVIMAB 1,400 MG in NS 250 ML IV ONE; -EPINEPHrine INJ 1 MG/ML 1ML AMP IM PRN; -NS 1,000 ML IV SCH; -diphenhydrAMINE 50MG/ML VIAL (J1200) IV PRN; -methylPREDNISolone 125MG 2ML VIAL IV PRN
[2022-05-12 10:41] LABS: BASO # 0.1 10^3/uL (0.0-0.2); BASO % 1.3 % (0.0-1.0); EOS # 0.1 10^3/uL (0.0-0.5); EOS % 1.5 % (0.0-3.0); HEMATOCRIT 40.7 % (42.0-52.0); HEMOGLOBIN 12.9 g/dl (13.5-17.5); LYMPH # 2.3 10^3/uL (1.5-5.0); LYMPH % 26.3 % (24.0-44.0); MEAN CORPUSCULAR HEMOGLOBIN 26.3 pg (27.0-33.0); MEAN CORPUSCULAR HGB CONC 31.7 g/dl (32.0-36.5); MEAN CORPUSCULAR VOLUME 83.1 fl (80.0-96.0); MONO # 0.9 10^3/uL (0.0-0.8); MONO % 9.9 % (2.0-8.0); NEUTROPHILS # 5.2 10^3/uL (1.5-8.5); NEUTROPHILS % 60.3 % (36.0-66.0); PLATELET COUNT, AUTOMATED 188 10^3/uL (150-450); WHITE BLOOD COUNT 8.6 10^3/uL (4.0-10.0)
[2022-05-12 11:47] LABS: ALBUMIN 3.4 GM/DL (3.2-5.2); BILIRUBIN,TOTAL 0.6 MG/DL (0.2-1.0); CALCIUM LEVEL 8.5 MG/DL (8.8-10.2); CHOLESTEROL RISK RATIO 3.769 (<5); CREATININE FOR GFR 1.73 MG/DL (0.70-1.30); FREE T4 0.93 NG/DL (0.76-1.46); POTASSIUM SERUM 4.4 MEQ/L (3.5-5.1); THYROID STIMULATING HORMONE 3.3 uIU/ML (0.358-3.740); TOTAL PROTEIN 7.7 GM/DL (6.4-8.2)
[2022-05-12 12:18] LABS: TOTAL 25(OH) VITAMIN D 29.7 NG/ML (30.0-100.0)
[2022-05-12 13:21] LABS: MALB URINE SIEMENS 22.1 MG/L; MAU/CREAT RATIO 17.2 MCG/MG (0.0-30.0)
[2022-05-13 09:29] LABS: PTH INTACT 88.9 PG/ML (18.5-88.0)
== END ==
LOC: M WUC 08:03
PROVIDERS: ATTEND Nurse Practitioner Adult Health
DX: E83.51 Hypocalcemia (principal); E11.22 Type 2 diabetes mellitus with diabetic chronic kidney disease; N18.30 Chronic kidney disease, stage 3 unspecified

== ENCOUNTER 2022-09-23 12:42 | Emergency (ER) | payer BC, MEDICARE ==
[~2022-09-23] VITALS: Ht 167.6 cm; Wt 114.4 kg
[2022-09-23] MEDS ORDERED: GLIP5TAB20 (13:07)
[2022-09-23] MEDS ORDERED: GABA-282 (13:07)
[2022-09-23] MEDS ORDERED: ACETAMINOPHEN TAB 650MG DOSE (2X325MG) PO ONE (13:10)
[2022-09-23] MEDS ORDERED: ALBUTEROL 90 MCG/ACT 8GM HFA INHALER INH ONE (13:50)
[2022-09-23] MEDS ORDERED: ONDANSETRON 4MG ORAL DISINTEGRATING TAB PO ONE (13:50)
[2022-09-23] MEDS ORDERED: VENTAER INH (15:10)
[2022-09-23] MEDS ORDERED: OSEL75CA PO (15:10)
[2022-09-23] MEDS ORDERED: ONDA4TAB6 PO (15:10)
[2022-09-23 15:18] VITALS: BP 128/70
[2022-09-23] MEDS: COMBIVENT RESPIMAT 100-20MCG INHALER 4GM INH SCH ×2 (15:38→16:25)
== END 2022-09-23 16:24 | disposition home or self-care (01) ==
LOC: M ED 12:42
DX: J10.89 Influenza due to other identified influenza virus with other manifestations (principal); R11.2 Nausea with vomiting, unspecified; R19.7 Diarrhea, unspecified; R09.81 Nasal congestion; I10 Essential (primary) hypertension; E78.5 Hyperlipidemia, unspecified; N18.9 Chronic kidney disease, unspecified; K21.9 Gastro-esophageal reflux disease without esophagitis; G47.33 Obstructive sleep apnea (adult) (pediatric); E11.9 Type 2 diabetes mellitus without complications; Z79.4 Long term (current) use of insulin; Z79.899 Other long term (current) drug therapy; Z88.0 Allergy status to penicillin

== ENCOUNTER → 2022-11-06 | Outpatient (CLI) | payer MEDICARE ==
[~2022-11-06] MED LIST changes: +GABA-282; +GLIP5TAB20; +OSEL75CA PO; +VENTAER INH
[2022-11-06 13:15] LABS: BASO # 0.1 10^3/uL (0.0-0.2); BASO % 1.5 % (0.0-1.0); EOS # 0.1 10^3/uL (0.0-0.5); EOS % 1.1 % (0.0-3.0); HEMATOCRIT 42.6 % (42.0-52.0); HEMOGLOBIN 13.6 g/dl (13.5-17.5); LYMPH # 2.2 10^3/uL (1.5-5.0); LYMPH % 27.3 % (24.0-44.0); MEAN CORPUSCULAR HEMOGLOBIN 26.9 pg (27.0-33.0); MEAN CORPUSCULAR HGB CONC 31.9 g/dl (32.0-36.5); MEAN CORPUSCULAR VOLUME 84.2 fl (80.0-96.0); MONO # 0.7 10^3/uL (0.0-0.8); MONO % 8.8 % (2.0-8.0); NEUTROPHILS # 4.9 10^3/uL (1.5-8.5); NEUTROPHILS % 60.7 % (36.0-66.0); PLATELET COUNT, AUTOMATED 169 10^3/uL (150-450); RED BLOOD COUNT 5.06 10^6/uL (4.30-6.10); WHITE BLOOD COUNT 8.1 10^3/uL (4.0-10.0)
[2022-11-06 13:43] LABS: ALBUMIN 3.6 G/DL (3.2-5.2); BILIRUBIN,TOTAL 0.5 MG/DL (0.3-1.2); CALCIUM LEVEL 8.7 MG/DL (8.3-10.6); CHOLESTEROL RISK RATIO 4.43 (<5); CREATININE FOR GFR 1.42 MG/DL (0.70-1.30); GLOMERULAR FILTRATION RATE 52.8 (>49); HDL CHOLESTEROL 25.7 MG/DL (>40); LDL CHOLESTEROL 43.9 MG/DL (<100); PERCENT SATURATION 20.3 % (19.7-50.0); POTASSIUM SERUM 4.5 MMOL/L (3.5-5.1)
[2022-11-06 13:46] LABS: THYROID STIMULATING HORMONE 3.865 uIU/ML (0.55-4.78)
[2022-11-06 13:47] LABS: FREE T4 0.87 NG/DL (0.89-1.76); TOTAL 25(OH) VITAMIN D 30.3 NG/ML (20.0-100.0)
[2022-11-06 13:50] LABS: HEMOGLOBIN A1c 9.2 % (4.0-6.0)
== END ==
LOC: M WUC 10:56
PROVIDERS: ATTEND Nurse Practitioner Adult Health
DX: E11.22 Type 2 diabetes mellitus with diabetic chronic kidney disease (principal); E78.2 Mixed hyperlipidemia; D50.9 Iron deficiency anemia, unspecified; E55.9 Vitamin D deficiency, unspecified; E11.42 Type 2 diabetes mellitus with diabetic polyneuropathy; Z79.899 Other long term (current) drug therapy

== ENCOUNTER 2023-08-30 18:37 | Emergency (ER) | payer MEDICARE ==
[~2023-08-30] VITALS: Ht 165.1 cm; Wt 115.9 kg
[2023-08-30] MEDS ORDERED: NIRMATRELVIR/RITONAVIR (RENAL) CO-PACK (EUA) PO SCH ×2 (21:00)
[2023-08-30 21:01] LABS: RSV AMPLIFICATION NEGATIVE (NEGATIVE)
[2023-08-30] MEDS: ALBUTEROL 90 MCG/ACT 8GM HFA INHALER INH SCH ×2 (21:17→21:35)
[2023-08-30 21:32] LABS: BASO # 0.1 10^3/uL (0.0-0.2); BASO % 0.8 % (0.0-1.0); EOS % 0.2 % (0.0-3.0); HEMATOCRIT 39.9 % (42.0-52.0); LYMPH % 7.9 % (24.0-44.0); MEAN CORPUSCULAR HEMOGLOBIN 26.7 pg (27.0-33.0); MEAN CORPUSCULAR HGB CONC 32.6 g/dl (32.0-36.5); MEAN CORPUSCULAR VOLUME 82.1 fl (80.0-96.0); MONO % 7.8 % (2.0-8.0); NEUTROPHILS # 10.8 10^3/uL (1.5-8.5); NEUTROPHILS % 82.8 % (36.0-66.0); PLATELET COUNT, AUTOMATED 201 10^3/uL (150-450); RED BLOOD COUNT 4.86 10^6/uL (4.30-6.10)
[2023-08-30 21:42] LABS: INR 1.6; PROTHROMBIN TIME 18.5 SECONDS (12.5-14.5)
[2023-08-30 21:43] LABS: PARTIAL THROMBOPLASTIN TIME 40.7 SECONDS (24.8-34.2)
[2023-08-30 22:02] LABS: ALKALINE PHOSPHATASE 119 U/L (46-116); ALT/SGPT 21 U/L (7.0-40); AST/SGOT 24 U/L (<34); BILIRUBIN,DIRECT 0.4 MG/DL (<0.4); BLOOD UREA NITROGEN 25 MG/DL (9-23); CALCIUM LEVEL 9.3 MG/DL (8.3-10.6); CARBON DIOXIDE LEVEL 26 MMOL/L (20-31); CHLORIDE LEVEL 99 MMOL/L (98-107); CREATININE FOR GFR 1.67 MG/DL (0.70-1.30); GLOMERULAR FILTRATION RATE 43.6 (>49); GLUCOSE, FASTING 85 MG/DL (74-106); MAGNESIUM LEVEL 1.5 MG/DL (1.8-2.4); POTASSIUM SERUM 4.7 MMOL/L (3.5-5.1); SODIUM LEVEL 135 MMOL/L (136-145); TOTAL PROTEIN 8.5 G/DL (5.7-8.2)
[2023-08-30 22:08] LABS: PROCALCITONIN <0.04 ng/ml
[2023-08-30] MEDS ORDERED: ACETAMINOPHEN TAB 650MG DOSE (2X325MG) PO ONE (22:30)
[2023-08-30 23:30] VITALS: BP 109/68; TEMP 100.2; O2SAT 92
== END 2023-08-30 23:34 | disposition home or self-care (01) ==
LOC: M ED 18:37
DX: U07.1 COVID-19 (principal); I48.91 Unspecified atrial fibrillation; E11.9 Type 2 diabetes mellitus without complications; I10 Essential (primary) hypertension; D50.9 Iron deficiency anemia, unspecified; N18.30 Chronic kidney disease, stage 3 unspecified; G47.33 Obstructive sleep apnea (adult) (pediatric); Z79.4 Long term (current) use of insulin; Z79.899 Other long term (current) drug therapy; Z88.0 Allergy status to penicillin

== ENCOUNTER → 2023-11-22 | Outpatient (CLI) | payer MEDICARE ==
[2023-11-22 11:44] LABS: BASO # 0.1 10^3/uL (0.0-0.2); BASO % 1.2 % (0.0-1.0); EOS # 0.1 10^3/uL (0.0-0.5); EOS % 0.6 % (0.0-3.0); HEMATOCRIT 44.2 % (42.0-52.0); HEMOGLOBIN 14.2 g/dl (13.5-17.5); LYMPH # 2.4 10^3/uL (1.5-5.0); MEAN CORPUSCULAR HEMOGLOBIN 26.9 pg (27.0-33.0); MEAN CORPUSCULAR HGB CONC 32.1 g/dl (32.0-36.5); MEAN CORPUSCULAR VOLUME 83.7 fl (80.0-96.0); MONO # 0.9 10^3/uL (0.0-0.8); MONO % 10.2 % (2.0-8.0); NEUTROPHILS # 4.9 10^3/uL (1.5-8.5); NEUTROPHILS % 58.2 % (36.0-66.0); PLATELET COUNT, AUTOMATED 177 10^3/uL (150-450); RED BLOOD COUNT 5.28 10^6/uL (4.30-6.10); WHITE BLOOD COUNT 8.4 10^3/uL (4.0-10.0)
[2023-11-22 12:08] LABS: ALBUMIN 3.8 G/DL (3.2-5.2); BILIRUBIN,TOTAL 0.5 MG/DL (0.3-1.2); CALCIUM LEVEL 9.1 MG/DL (8.3-10.6); CHOLESTEROL RISK RATIO 3.52 (<5); CREATININE FOR GFR 1.6 MG/DL (0.70-1.30); GLOMERULAR FILTRATION RATE 45.9 (>49); HDL CHOLESTEROL 25.5 MG/DL (>40); LDL CHOLESTEROL 33.7 MG/DL (<100); NON-HDL-C 64.5 MG/DL; PERCENT SATURATION 19.8 % (19.7-50.0); POTASSIUM SERUM 4.1 MMOL/L (3.5-5.1); THYROID STIMULATING HORMONE 5.981 uIU/ML (0.55-4.78)
[2023-11-22 12:09] LABS: FREE T4 0.96 NG/DL (0.89-1.76); HEMOGLOBIN A1c 10.3 % (4.0-6.0)
[2023-11-24 23:07] LABS: PSA TOTAL 3.8 ng/mL (0.0-4.0)
== END ==
LOC: M WUC 08:44
PROVIDERS: ATTEND Nurse Practitioner Adult Health
DX: E11.22 Type 2 diabetes mellitus with diabetic chronic kidney disease (principal); E78.2 Mixed hyperlipidemia; D50.9 Iron deficiency anemia, unspecified; Z12.5 Encounter for screening for malignant neoplasm of prostate; Z79.899 Other long term (current) drug therapy

== ENCOUNTER → 2023-11-22 | Outpatient (CLI) | payer MEDICARE ==
[2023-11-22 12:05] LABS: CALCIUM LEVEL 9.2 MG/DL (8.3-10.6); CREATININE FOR GFR 1.58 MG/DL (0.70-1.30); GLOMERULAR FILTRATION RATE 46.5 (>49); POTASSIUM SERUM 4.1 MMOL/L (3.5-5.1)
[2023-11-22 12:09] LABS: HEMOGLOBIN A1c 10.3 % (4.0-6.0)
== END ==
LOC: M WUC 08:48
PROVIDERS: ATTEND Nurse Practitioner Family
DX: E11.22 Type 2 diabetes mellitus with diabetic chronic kidney disease (principal)

== ENCOUNTER → 2024-08-09 | Outpatient (CLI) | payer MEDICARE ==
[~2024-08-09] MED LIST changes: +GABA-1172; -GABA-282; +METO200T15 PO; -METO200T28 PO; +ONDA-282 PO; -ONDA4TAB6 PO
[2024-08-09 10:55] LABS: BASO # 0.1 10^3/uL (0.0-0.2); BASO % 1.5 % (0.0-1.0); EOS # 0.1 10^3/uL (0.0-0.5); EOS % 0.6 % (0.0-3.0); HEMATOCRIT 41.9 % (42.0-52.0); HEMOGLOBIN 13.3 g/dl (13.5-17.5); LYMPH # 2.7 10^3/uL (1.5-5.0); LYMPH % 29.5 % (24.0-44.0); MEAN CORPUSCULAR HGB CONC 31.7 g/dl (32.0-36.5); MEAN CORPUSCULAR VOLUME 85.2 fl (80.0-96.0); MONO # 0.9 10^3/uL (0.0-0.8); NEUTROPHILS # 5.4 10^3/uL (1.5-8.5); NEUTROPHILS % 57.8 % (36.0-66.0); PLATELET COUNT, AUTOMATED 234 10^3/uL (150-450); RED BLOOD COUNT 4.92 10^6/uL (4.30-6.10); WHITE BLOOD COUNT 9.3 10^3/uL (4.0-10.0)
[2024-08-09 10:56] LABS: HEMOGLOBIN 13.3 g/dl (13.5-17.5); MEAN CORPUSCULAR HEMOGLOBIN 26.6 pg (27.0-33.0); MEAN CORPUSCULAR HGB CONC 31.7 g/dl (32.0-36.5); PLATELET COUNT, AUTOMATED 236 10^3/uL (150-450); WHITE BLOOD COUNT 9.2 10^3/uL (4.0-10.0)
[2024-08-09 11:11] LABS: HEMOGLOBIN A1c 8.3 % (4.0-6.0)
[2024-08-09 11:21] LABS: ALBUMIN 3.7 G/DL (3.2-5.2); BILIRUBIN,TOTAL 0.6 MG/DL (0.3-1.2); CALCIUM LEVEL 9.4 MG/DL (8.3-10.6); CALCIUM LEVEL 9.6 MG/DL (8.3-10.6); CREATININE FOR GFR 1.42 MG/DL (0.70-1.30); CREATININE FOR GFR 1.44 MG/DL (0.70-1.30); GLOMERULAR FILTRATION RATE 51.6 (>42); GLOMERULAR FILTRATION RATE 52.5 (>42); MAGNESIUM LEVEL 1.7 MG/DL (1.8-2.4); POTASSIUM SERUM 4.7 MMOL/L (3.5-5.1); TOTAL PROTEIN 8.4 G/DL (5.7-8.2)
== END ==
LOC: M WUC 08:16
PROVIDERS: ATTEND Family Medicine
DX: E11.22 Type 2 diabetes mellitus with diabetic chronic kidney disease (principal); I48.21 Permanent atrial fibrillation; I13.10 Hypertensive heart and chronic kidney disease without heart failure, with stage 1 through stage 4 chronic kidney disease, or unspecified chronic kidney disease; N18.9 Chronic kidney disease, unspecified

== ENCOUNTER → 2025-01-22 | Outpatient (CLI) | payer MEDICARE ==
[~2025-01-22] MED LIST changes: +GLIP-318; +GLIP-318 PO; -GLIP5TAB20; -GLIP5TAB20 PO
[2025-01-22 13:05] LABS: HEMATOCRIT 44.6 % (42.0-52.0); HEMOGLOBIN 14.2 g/dl (13.5-17.5); MEAN CORPUSCULAR HEMOGLOBIN 27.3 pg (27.0-33.0); MEAN CORPUSCULAR HGB CONC 31.8 g/dl (32.0-36.5); MEAN CORPUSCULAR VOLUME 85.8 fl (80.0-96.0); PLATELET COUNT, AUTOMATED 168 10^3/uL (150-450); WHITE BLOOD COUNT 8.4 10^3/uL (4.0-10.0)
[2025-01-22 13:25] LABS: FREE T4 0.89 NG/DL (0.89-1.76); THYROID STIMULATING HORMONE 4.95 uIU/ML (0.55-4.78)
[2025-01-22 13:27] LABS: ALBUMIN 3.7 G/DL (3.2-5.2); BILIRUBIN,TOTAL 0.5 MG/DL (0.3-1.2); CALCIUM LEVEL 9.2 MG/DL (8.3-10.6); CHOLESTEROL RISK RATIO 5.52 (<5); CREATININE FOR GFR 1.58 MG/DL (0.70-1.30); GLOMERULAR FILTRATION RATE 46.8 (>42); HDL CHOLESTEROL 24.8 MG/DL (>40); NON-HDL-C 112.2 MG/DL; PERCENT SATURATION 27.1 % (19.7-50.0); POTASSIUM SERUM 4.5 MMOL/L (3.5-5.1); TOTAL PROTEIN 8.2 G/DL (5.7-8.2)
[2025-01-22 13:33] LABS: HEMOGLOBIN A1c 7.7 % (4.0-6.0)
[2025-01-22 13:51] LABS: ATYPICAL LYMPH 1 % (0-5); BASOPHILS 2 % (0-1); EOSINOPHILS 1 % (0-3); LYMPHOCYTES 25 % (16-44); MONOCYTES 12 % (0-5); NEUTROPHILS 59 % (28-66); PLATELET ESTIMATE NORMAL (NORMAL)
== END ==
LOC: M WUC 08:54
PROVIDERS: ATTEND Nurse Practitioner Adult Health
DX: E11.22 Type 2 diabetes mellitus with diabetic chronic kidney disease (principal); D50.9 Iron deficiency anemia, unspecified; F41.1 Generalized anxiety disorder

== ENCOUNTER → 2025-02-26 | Outpatient (CLI) | payer MEDICARE | LOC: M WUC 08:20 | PROVIDERS: ATTEND Nurse Practitioner Adult Health | DX: M54.50 Low back pain, unspecified (principal); M25.551 Pain in right hip ==